=== PATIENT | female | born 2000 | race Caucasian/White ===

== ENCOUNTER 2020-04-21 15:26 | Outpatient (REF) | payer SELFPAY | END 2020-04-21 15:27 | disposition home or self-care (01) | LOC: HO.LAB 15:26 | PROVIDERS: Visit Provider Internal Medicine | DX: Z20.828 Contact with and (suspected) exposure to other viral communicable diseases (principal) | CPT/HCPCS: C9803; U0003 ==

== ENCOUNTER 2021-05-17 12:03 | Emergency (ER) | payer OTHER, SELFPAY ==
--- NOTE | ~2021-05-17 | XR_ITS ---
EXAMINATION: XR CHEST CLINICAL INFORMATION: Chest wall pain COMPARISON: None TECHNIQUE: 2 views of the chest were obtained. FINDINGS: No significant abnormality is noted involving the heart, lungs, mediastinum, bony thorax or soft tissues. XR/XR chest 2V IMPRESSION: Unremarkable examination.
[2021-05-17 12:47] VITALS: BP 123/56; PULSE 69; RESP 19; TEMP 36.6; O2SAT 100; BMI 25.6
--- NOTE | 2021-05-17 12:52 | ECG_ITS ---
Test Reason : chest pain Blood Pressure : / mmHG Vent. Rate : 063 BPM Atrial Rate : 063 BPM P-R Int : 118 ms QRS Dur : 078 ms QT Int : 392 ms P-R-T Axes : 031 020 041 degrees QTc Int : 401 ms Normal sinus rhythm Normal ECG No previous ECGs available Referred By: Generic ED Physician Electronically Signed By:Jonny Gallagher
[2021-05-17 13:53] LABS: UPreg QC Valid YES; Urine Pregnancy NEGATIVE (NEGATIVE)
[2021-05-17 14:03] LABS: COVID-19 Test Negative (Negative); IDNOW Serial# 9DD0AD1C
--- NOTE | 2021-05-17 15:13 | ED.GENADULT ---
HPI - General Adult General Chief complaint: General Medical Stated complaint: DULL PAIN IN LT CHEST Time Seen by Provider: 05/17/21 15:10 Source: patient Mode of arrival: ambulatory Limitations: no limitations History of Present Illness HPI narrative: 21 years old female came in for evaluation of chest pain. Chest pain started since 06:00 after she woke up from sleep, describes the pain as sharp, localized in the mid chest, with no radiation, pain is worsening with certain movement when she put her arms up and taking a deep breath, no relieving factors, no recent travel, no recent prolonged immobilization, no lower extremity swelling or tenderness. Patient also declined any history of chest pain. Related Data Allergies Allergy/AdvReac Type Severity Reaction Status Date / Time No Known Allergies Allergy Verified 05/17/21 15:10 Review of Systems Review of Systems: All other systems are reviewed and are negative Constitutional: Reports as per HPI and Reports no additional constitutional complaints Eyes: Reports as per HPI and Reports no additional eye complaints Reports system reviewed and no additional complaints, except as documented Cardiovascular: Reports as per HPI and Reports no additional cardiovascular complaints Respiratory: Reports as per HPI and Reports no additional respiratory complaints Gastrointestinal: Reports as per HPI and Reports no additional gastrointestinal complaints Genitourinary: Reports no additional female genitourinary complaints Musculoskeletal: Reports no additional musculoskeletal complaints Skin/Breast: Reports system reviewed and no additional complaints, except as docu Psychiatric: Reports no additional psychiatric complaints Endocrine: Reports no additional endocrine complaints Hematologic/Lymphatic: Reports no additional hematologic/lymphatic complaints Allergic/Immunologic: Reports no additional allergic/immunologic complaints Reports system reviewed and no additional complaints, except as documented and Reports Abnormal speech present [facility] Social History Social History Advance Directives: No Advance Directives Information Provided: No Patient : No Physical Exam Vital Signs: Vital Signs: Last Vital Signs Temp 98 F 05/17/21 12:47 Pulse 69 05/17/21 12:47 Resp 19 05/17/21 12:47 BP 123/56 L 05/17/21 12:47 Pulse Ox 100 05/17/21 12:47 BMI result Body Mass Index 25.6 Vital signs have been reviewed as appeared to be correct. Blood pressure normal. Heart rate normal. Respiration rate normal. Temperature normal. Oxygen saturation normal. Appearance: Alert. Oriented X3. No acute distress. Head: Normal external exam. Normocephalic. Atraumatic. No Fernandes signs noted. No raccoon eyes noted Eyes: PERRLA. EOMI. Conjunctiva and sclera normal. Eyelids normal. ENT: TM's Normal. Pharynx normal. Uvula midline. Moist mucous membranes. No trismus noted. No drooling noted. No muffled voice noted. Neck: Normal inspection. Neck supple. FROM. No adenopathy. Thyroid Normal. No meningeal signs. No neck mass noted. CVS: Normal heart rate and rhythm. Heart sound normal. No murmurs noted. Pulses normal throughout. Respiratory: No respiratory distress. Painless inspiration. Breath sounds normal. No wheezes/rales/rhonchi noted. Chest point of tenderness in the mid chest. No accessory muscle usage noted or decreased air movement noted. Abdomen: Soft and nontender. Bowel sounds normal in all 4 quadrants. No distention noted. No organomegaly noted. No visible injury noted. Back: No CVA tenderness. Full range of motion noted. Skin: Skin warm and dry. Normal skin color. Normal skin turgor. No rashes/lesions/lacerations noted. Extremities: No lower extremity edema. Extremities exhibit normal range of motion. Extremities nontender. Neuro: Oriented X 3. Cranial nerve exam: II-XII are grossly intact No motor deficit. No sensory deficit. Reflexes normal. Course Course Course Narrative: [age] came in for evaluation of chest pain started this morning. Patient at low risk for coronary artery disease HEART score is 0, patient at low risk for PE/DVT, with negative D-dimer, physical exam lab finding are more or less consistent was musculoskeletal pain. Medical Decision Making Medical Records Medical records reviewed: Yes I reviewed the patient's medical records. Lab Data Lab results reviewed: Yes I reviewed the patient's lab results. Result diagrams: 05/17/21 15:45 05/17/21 15:45 Labs: Lab Results 05/17/21 05/17/21 05/17/21 Range/Units 13:42 13:43 15:45 WBC 8.0 (4.8-10.8) X10*3/uL RBC 4.39 (4.20-5.50) X10*6/uL Hgb 12.6 (12.0-16.0) g/dl Hct 39.0 (37.0-47.0) % MCV 88.8 (80.0-98.0) fL MCH 28.7 (27.0-33.0) pg MCHC 32.3 (31.0-35.0) g/dl RDW 13.0 (11.0-16.0) % Plt Count 303 (160-400) X10*3/uL MPV 9.2 L (9.4-12.3) fL Immature Gran % (Auto) 0.1 (0.0-0.4) % Neut % (Auto) 56.9 (45-73) % Lymph % (Auto) 33.2 (20-40) % [place] % (Auto) 6.5 (2-11) % Eos % (Auto) 2.4 (0-4) % Baso % (Auto) 0.9 (0-2) % Lymph # (Auto) 2.7 (1.2-4.9) X10*3/uL [place] # (Auto) 0.5 (0.1-1.2) X10*3/uL Eos # (Auto) 0.2 (0.0-0.4) X10*3/uL Baso # (Auto) 0.1 (0.0-0.2) X10*3/uL Abs Immat Gran (auto) 0.01 (0.00-0.03) X10*3/uL Absolute Neuts (auto) 4.6 (2.0-8.3) x10*3/uL Absolute Nucleated RBC 0.000 (0.0-0.012) X10*3/uL Nucleated RBC % (auto) 0.0 (0.0-0.2) /100WBC D-Dimer High Sensitivty NG/ML Sodium (135-145) mmol/L Potassium (3.3-5.1) mmol/L Chloride (96-108) mmol/L Carbon Dioxide (22-29) mmol/L Anion Gap (12-20) BUN (9-16) mg/dL Creatinine (0.5-1.4) mg/dL Estim Creat Clear Calc Estimated GFR Random Glucose (60-115) mg/dL Calcium (8.4-10.2) mg/dL Total Bilirubin (0.0-1.0) mg/dL Direct Bilirubin (0.0-0.5) mg/dL AST (5-31) U/L ALT (0-31) U/L Alkaline Phosphatase (39-117) U/L Troponin I High Sens (<3.5-17.0) ng/L Total Protein (6.5-8.0) g/dL Albumin (3.5-5.0) g/dL Lipase (8-78) U/L Urine Test NEGATIVE (NEGATIVE) COVID-19 (TIFFANI) Negative (Negative) COVID-19 Clin Com See Note 05/17/21 05/17/21 05/17/21 Range/Units 15:45 15:45 15:45 WBC (4.8-10.8) X10*3/uL RBC (4.20-5.50) X10*6/uL Hgb (12.0-16.0) g/dl Hct (37.0-47.0) % MCV (80.0-98.0) fL MCH (27.0-33.0) pg MCHC (31.0-35.0) g/dl RDW (11.0-16.0) % Plt Count (160-400) X10*3/uL MPV (9.4-12.3) fL Immature Gran % (Auto) (0.0-0.4) % Neut % (Auto) (45-73) % Lymph % (Auto) (20-40) % Col[place] % (Auto) (2-11) % Eos % (Auto) (0-4) % Baso % (Auto) (0-2) % Lymph # (Auto) (1.2-4.9) X10*3/uL [place] # (Auto) (0.1-1.2) X10*3/uL Eos # (Auto) (0.0-0.4) X10*3/uL Baso # (Auto) (0.0-0.2) X10*3/uL Abs Immat Gran (auto) (0.00-0.03) X10*3/uL Absolute Neuts (auto) (2.0-8.3) x10*3/uL Absolute Nucleated RBC (0.0-0.012) X10*3/uL Nucleated RBC % (auto) (0.0-0.2) /100WBC D-Dimer High Sensitivty < 150 NG/ML Sodium 140 (135-145) mmol/L Potassium 4.3 (3.3-5.1) mmol/L Chloride 109 H (96-108) mmol/L Carbon Dioxide 27 (22-29) mmol/L Anion Gap 8 L (12-20) BUN 10 (9-16) mg/dL Creatinine 0.84 (0.5-1.4) mg/dL Estim Creat Clear Calc 91.1 Estimated GFR > 60 Random Glucose 95 (60-115) mg/dL Calcium 8.9 (8.4-10.2) mg/dL Total Bilirubin 0.4 (0.0-1.0) mg/dL Direct Bilirubin < 0.2 (0.0-0.5) mg/dL AST 19 (5-31) U/L ALT 13 (0-31) U/L Alkaline Phosphatase 70 (39-117) U/L Troponin I High Sens < 3.5 (<3.5-17.0) ng/L Total Protein 7.2 (6.5-8.0) g/dL Albumin 3.8 (3.5-5.0) g/dL Lipase 25 (8-78) U/L Urine Test (NEGATIVE) COVID-19 (TIFFANI) (Negative) COVID-19 Clin Com Imaging Data Chest x-ray: Attestation: I personally reviewed and interpreted this imaging study as follows: Radiologist's impression: Unremarkable chest x-ray ECG Data Attestation: I personally reviewed and interpreted this ECG as follows: Interpretation: Normal sinus rhythm at 63 beats per minute, normal axis deviation, normal intervals, no ST-T changes. Discharge Plan Discharge Clinical Impression: Musculoskeletal chest pain Patient Disposition: Home, Self-Care Instructions: Chest Wall Pain (ED) Referrals: [facility] [Primary Care Provider] - 2 days
[2021-05-17] MEDS: Acetaminophen 325 MG TABLET 650 MG PO (15:23)
[2021-05-17] MEDS: Famotidine 20 MG TABLET PO (15:23)
[2021-05-17] MEDS: Magnesium Hydrox/Alum Hydrox 30 ML ORAL.SUSP PO (15:24)
[2021-05-17 15:50] LABS: MANUAL DIFF FLAG NO
[2021-05-17 15:51] LABS: Basophils Absolute Auto 0.1 X10*3/uL (0.0-0.2); Basophils Percent Auto 0.9 % (0-2); Eosinophils Absolute Auto 0.2 X10*3/uL (0.0-0.4); Eosinophils Percent Auto 2.4 % (0-4); Hemoglobin 12.6 g/dl (12.0-16.0); Imm Gran Abs Auto 0.01 X10*3/uL (0.00-0.03); Imm Gran Pct Auto 0.1 % (0.0-0.4); Lymphocytes Absolute Auto 2.7 X10*3/uL (1.2-4.9); Lymphocytes Percent Auto 33.2 % (20-40); Mean Corpuscular HGB Conc 32.3 g/dl (31.0-35.0); Mean Corpuscular Hemoglobin 28.7 pg (27.0-33.0); Mean Corpuscular Volume 88.8 fL (80.0-98.0); Mean Platelet Volume 9.2 fL (9.4-12.3); Monocytes Absolute Auto 0.5 X10*3/uL (0.1-1.2); Monocytes Percent Auto 6.5 % (2-11); Neutrophils Absolute Auto 4.6 x10*3/uL (2.0-8.3); Neutrophils Percent Auto 56.9 % (45-73); Platelet Count 303 X10*3/uL (160-400); Red Blood Count 4.39 X10*6/uL (4.20-5.50)
[2021-05-17 16:05] LABS: D Dimer High Sensitivity < 150 NG/ML
[2021-05-17 16:11] LABS: Troponin-I High Sensitivity < 3.5 ng/L (<3.5-17.0)
[2021-05-17 16:14] LABS: Alanine Aminotransferase 13 U/L (0-31); Albumin Level 3.8 g/dL (3.5-5.0); Alkaline Phosphatase 70 U/L (39-117); Anion Gap 8 (12-20); Aspartate Amino Transferase 19 U/L (5-31); Bilirubin Direct < 0.2 mg/dL (0.0-0.5); Bilirubin Total 0.4 mg/dL (0.0-1.0); Blood Urea Nitrogen 10 mg/dL (9-16); Calcium 8.9 mg/dL (8.4-10.2); Carbon Dioxide 27 mmol/L (22-29); Chloride 109 mmol/L (96-108); Creatinine Clr Calc Pharmacy 91.1; Estimated Glomerular Filt Rate > 60; Glucose Random 95 mg/dL (60-115); Lipase 25 U/L (8-78); Potassium 4.3 mmol/L (3.3-5.1); Sodium 140 mmol/L (135-145); Total Protein 7.2 g/dL (6.5-8.0)
== END 2021-05-17 16:30 | disposition home or self-care (01) ==
PROVIDERS: Emergency Provider Emergency Medicine
DX: R07.89 Other chest pain (principal); Z20.822 Contact with and (suspected) exposure to COVID-19
CPT/HCPCS: 36415; 71046; 80048; 80076; 81025; 83690; 84484; 85025; 85379; 87635; 93005; 99283; 99284

== ENCOUNTER 2022-04-07 11:09 | Emergency (ER) | payer SELFPAY ==
--- NOTE | ~2022-04-07 | XR_ITS ---
EXAMINATION: XR RIBS, RIGHT, PA CHEST CLINICAL INFORMATION: Right rib pain. COMPARISON: 05/17/2021 chest radiographs. TECHNIQUE: 3 views of the right ribs were obtained along with a PA view of the chest. A skin marker was placed over the inferior right ribs. FINDINGS: Lungs are clear. No consolidation, pneumothorax, or pleural effusion. The cardiomediastinal silhouette and pulmonary vasculature are normal. Osseous structures are unremarkable. Ribs are intact. No fractures are identified. XR/XR ribs RT min 3V w CXR1V IMPRESSION: Unremarkable examination.
--- NOTE | 2022-04-07 11:11 | ED.CHESTPAIN ---
HPI - Chest Pain General Chief Complaint: General Medical Stated Complaint: R Side Pain No Injury Time Seen by Provider: 04/07/22 11:50 Source: patient Mode of arrival: ambulatory History of Present Illness HPI narrative: 22-year-old female with past medical history of influenza last week presenting to the ED complaining of right lower rib pain x 1 week s/p heavy lifting at work. Reports pain worse with movement, palpation, and deep breathing. Has been using NSAIDs and Lidoderm patches without relief. Reports mild SOB secondary to pain. Denies known injury, direct trauma/fall. Denies fever, chills, vomiting, nausea, vomiting, diarrhea, pedal edema/calf pain, oral OCPs, recent travel complaint: chest pain Onset (ago): week(s) Related Data Previous Rx's Medication Instructions Recorded acetaminophen 500 mg tablet 500 mg PO Q6H PRN fever or pain 04/07/22 (Tylenol Extra Strength) #14 tabs cyclobenzaprine 5 mg tablet 5 mg PO Q8H PRN pain (scale score 04/07/22 7-10) 5 days #14 tabs lidocaine 5 % topical patch 1 patch topical DAILY PRN pain #30 04/07/22 (Lidoderm) ea naproxen 500 mg tablet 500 mg PO BID PRN pain 10 days #20 04/07/22 tabs Allergies Allergy/AdvReac Type Severity Reaction Status Date / Time seafood Allergy Hives Verified 04/07/22 11:14 Review of Systems Review of Systems: Constitutional: No Fever, No Chills ENT/Mouth: No Ear Pain, No Nasal Congestion, No sore throat, No Rhinorrhea, No Swallowing Difficulty Cardiovascular: + Chest Wall Pain, + SOB Respiratory: No Cough, No Sputum, No Wheezing Gastrointestinal: No Nausea, No Vomiting, No Diarrhea, No Constipation, No Abdominal pain Genitourinary: No Dysuria, No Urinary Frequency, No Hematuria, No Flank Pain Musculoskeletal: No joint pain, No Myalgias, No Joint Swelling Skin: No Skin Lesions, No rash Neuro: No Weakness, No Numbness, No Paresthesias Yes all other systems are reviewed and are negative Constitutional: Constitutional: Reports as per [facility] Past Medical History Attestation statement: The following information was validated with the patient. Social History Social History Advance Directives: No Advance Directives Information Provided: No Physical Exam Vital Signs: Vital Signs: Last Vital Signs Temp 97.5 F 04/07/22 11:12 Pulse 88 04/07/22 11:12 Resp 16 04/07/22 11:12 BP 112/68 04/07/22 11:12 Pulse Ox 99 04/07/22 11:12 O2 Del Method 04/07/22 11:12 BMI result Body Mass Index 26.5 Const: General: cooperative, healthy appearing and no acute distress Orientation/consciousness: patient oriented x3 Limitations: no limitations HEENT: Head: Yes normal to inspection and Yes atraumatic Ears: hearing grossly normal bilaterally General nose exam: Normal external nose present Face and sinus: Yes normal facial exam Eyes: General: appearance normal, both eyes and all related structures EOM: EOMs intact bilaterally Neck: Neck: Yes normal visual inspection and Yes no meningeal signs Chest: Chest palpation & inspection: normal inspection of the chest, no crepitus and tenderness (Right anterior lower ribs) Resp: Effort & Inspection: normal respiratory effort and no respiratory distress Auscultation: clear to auscultation bilaterally, no crackles, no rales, no rhonchi and no wheezes Cardio: Rate: regular rate Heart sounds: S1 normal heart sound present and S2 normal heart sound present GI: Inspection: Yes normal to inspection Palpation (GI): Soft to palpation, nontender, no guarding and not rigid : General: Yes no CVA tenderness Back/Spine/Pelvis: Other: No midline thoracic/lumbar spinous tenderness/step-off or deformity Back: no CVA tenderness Skin: Rashes: no rashes Wounds: no wounds Neuro: General: patient oriented x3, tone normal and no meningeal signs Gait exam (Neuro): Normal gait present Extrem: General: Yes normal to inspection, Yes no pedal edema and Yes no calf tenderness Course Course Course Narrative: RME--22yo F with no sig PMHx presenting c/o R rib pain x 1 week s/p heavy lifting at work. Admits pain worse with movement and breathing. Admits to mild SOB. Has been taking NSAIDs and patches w/o relief Denies pedal edema, calf pain, travel, oral OCPs, abdominal pain, nausea, vomiting, diarrhea. PERC negative Pain very reproducible to right lower ribs. Abdomen soft and nontender. No pedal edema/calf tenderness EKG, rib series, and IM toradol ordered in triage 1224--XR ribs RT min 3V w CXR1V IMPRESSION: Unremarkable examination. -1345--labs unremarkable. Troponin negative. D-dimer WNL. Results discussed with patient including worrisome signs and symptoms and strict return precautions, and when to return to the emergency department. They verbalized understanding and feel safe for discharge at this time. Medications Administered Discontinued Medications Generic Name Dose Route Start Last Admin Trade Name Claire PRN Reason Stop Dose Admin Ketorolac Tromethamine 30 mg 04/07/22 11:16 04/07/22 13:17 Ketorolac Tromethamine 30 Mg/Ml Vial IM 04/07/22 11:17 30 mg ONCE ONE Administration Medical Decision Making Medical Decision Making [facility] Narrative: 22-year-old female with past medical history of influenza last week presenting to the ED complaining of right lower rib pain x 1 week s/p heavy lifting at work. On exam vital signs stable, NAD, nontoxic appearing, pain reproducible on palpation, patient guarding with movements, lungs CTA, abdomen soft/nontender, no pedal edema/calf tenderness. Concern for rib fracture vs contusion vs ?PNA. PERC negative however still concern for potential PE. Unlikely ACS Plan: EKG, rib x-ray, labs, IM Toradol Differential Diagnoses: Differential diagnosis (As above) Lab Attestation: I reviewed the patient's lab results. Independent interpretation of EKG, rhythm strip, radiology study: Independent interp EKG,rhythm strip, radiology study I performed an independent interpretation of the: EKG and Plain X-Ray My interpretation is EKG normal sinus rhythm with sinus arrhythmia at a rate of 78. QTC 401. No STEMI/nonischemic XR unremarkable Discharge Plan Discharge Clinical Impression: Acute costochondritis Patient Disposition: Home, Self-Care Instructions: Costochondritis (ED) Additional Instructions: Your x-ray was unremarkable. Her labs are otherwise reassuring. Your pain is likely musculoskeletal Flexeril is a muscle relaxer, take at night as it makes you drowsy, do not drive, drink alcohol, or operate machinery while taking it Naproxen as an anti-inflammatory / pain medication, take with food Lidoderm patches are numbing patches, apply to painful area In addition take Tylenol at home If symptoms persist or worsen, pain becomes unbearable, you developed urinary retention or incontinence, or weakness return to the ED Prescriptions: New acetaminophen [Tylenol Extra Strength] 500 mg tablet 500 mg PO Q6H PRN (Reason: fever or pain) Qty: 14 0RF lidocaine [Lidoderm] 5 % adhesive patch,medicated 1 patch topical DAILY MDD remove after 12 hours PRN (Reason: pain) Qty: 30 0RF Rx Instructions: leave on most painful area for up to 12 hrs naproxen 500 mg tablet 500 mg PO BID PRN (Reason: pain) 10 Days Qty: 20 0RF cyclobenzaprine 5 mg tablet 5 mg PO Q8H PRN (Reason: pain (scale score 7-10)) 5 Days Qty: 14 0RF Referrals: Physician,None [Primary Care Provider] - 5 days Stand Alone Forms: Work/School Release Interventions: ED Discharge Assessment Last Done: 04/07/22 14:17 Discharge Date/Time: 04/07/22 14:18
[2022-04-07 11:12] VITALS: BP 112/68; PULSE 88; RESP 16; TEMP 36.4; O2SAT 99; BMI 26.5
--- NOTE | 2022-04-07 11:15 | ECG_ITS ---
Test Reason : CP Blood Pressure : / mmHG Vent. Rate : 078 BPM Atrial Rate : 078 BPM P-R Int : 126 ms QRS Dur : 076 ms QT Int : 352 ms P-R-T Axes : 053 004 040 degrees QTc Int : 401 ms Normal sinus rhythm with sinus arrhythmia Normal ECG When compared with ECG of 17-MAY-2021 13:33, No significant change was found Referred By: Hazel Pena Electronically Signed By:TAMMY EDWARDS MD
[2022-04-07 13:04] LABS: MANUAL DIFF FLAG NO
[2022-04-07 13:07] LABS: Basophils Absolute Auto 0.1 X10*3/uL (0.0-0.2); Eosinophils Absolute Auto 0.1 X10*3/uL (0.0-0.4); Eosinophils Percent Auto 1.3 % (0-4); Hematocrit 40.5 % (37.0-47.0); Hemoglobin 13.2 g/dl (12.0-16.0); Imm Gran Abs Auto 0.02 X10*3/uL (0.00-0.03); Imm Gran Pct Auto 0.2 % (0.0-0.4); Lymphocytes Percent Auto 24.9 % (20-40); Mean Corpuscular HGB Conc 32.6 g/dl (31.0-35.0); Mean Corpuscular Hemoglobin 28.3 pg (27.0-33.0); Mean Corpuscular Volume 86.7 fL (80.0-98.0); Mean Platelet Volume 9.1 fL (9.4-12.3); Monocytes Absolute Auto 0.6 X10*3/uL (0.1-1.2); Monocytes Percent Auto 6.7 % (2-11); Neutrophils Absolute Auto 5.4 x10*3/uL (2.0-8.3); Neutrophils Percent Auto 65.9 % (45-73); Platelet Count 295 X10*3/uL (160-400); Red Blood Count 4.67 X10*6/uL (4.20-5.50); Red Cell Distribution Width 13.4 % (11.0-16.0); White Blood Count 8.2 X10*3/uL (4.8-10.8)
[2022-04-07] MEDS: Ketorolac Tromethamine 30 MG/ML VIAL IM (13:17)
--- NOTE | 2022-04-07 13:20 | PC.NURSE ---
medicated per provider order.
[2022-04-07 13:22] LABS: Alanine Aminotransferase 13 U/L (0-31); Albumin Level 4.1 g/dL (3.5-5.0); Alkaline Phosphatase 72 U/L (39-117); Anion Gap 10 (12-20); Aspartate Amino Transferase 19 U/L (5-31); Bilirubin Direct 0.2 mg/dL (0.0-0.5); Bilirubin Total 0.5 mg/dL (0.0-1.0); Blood Urea Nitrogen 13 mg/dL (9-16); Calcium 9.5 mg/dL (8.4-10.2); Carbon Dioxide 26 mmol/L (22-29); Chloride 105 mmol/L (96-108); Creatinine Clr Calc Pharmacy 94.1; Estimated Glomerular Filt Rate > 60; Glucose Random 81 mg/dL (60-115); Potassium 4.5 mmol/L (3.3-5.1); Sodium 136 mmol/L (135-145); Total Protein 7.4 g/dL (6.5-8.0)
[2022-04-07 13:23] LABS: D Dimer High Sensitivity < 150 NG/ML
[2022-04-07 13:26] LABS: Troponin-I High Sensitivity < 3.5 ng/L (<3.5-17.0)
== END 2022-04-07 14:18 | disposition home or self-care (01) ==
PROVIDERS: Physician Assistant; Emergency Provider Emergency Medicine Emergency Medical Services
DX: M94.0 Chondrocostal junction syndrome [Tietze] (principal); R07.89 Other chest pain; R06.02 Shortness of breath; Z79.899 Other long term (current) drug therapy
CPT/HCPCS: 36415; 71101; 80048; 80076; 84484; 85025; 85379; 93005; 96372; 99283; 99284; J1885

== ENCOUNTER 2022-11-23 15:22 | Outpatient (REF) | payer OTHER, SELFPAY ==
[2022-11-23 17:37] LABS: HCG Quantitative 751 mIU/mL
== END 2022-11-23 15:23 | disposition home or self-care (01) ==
LOC: HO.HHCL 15:22
PROVIDERS: Visit Provider Nurse Practitioner Primary Care
DX: Z32.01 Encounter for pregnancy test, result positive (principal)
CPT/HCPCS: 36415; 84702

== ENCOUNTER 2022-11-29 13:13 | Outpatient (REF) | payer SELFPAY | END 2022-11-29 13:14 | disposition home or self-care (01) | LOC: HO.LNP 13:13 | PROVIDERS: Visit Provider Obstetrics & Gynecology | DX: Z13.89 Encounter for screening for other disorder (principal) ==

== ENCOUNTER 2022-11-29 14:13 | Outpatient (REF) | payer OTHER, SELFPAY ==
--- NOTE | ~2022-11-29 | US_ITS ---
EXAMINATION: US OBSTETRICAL ULTRASOUND CLINICAL INFORMATION: Encounter of normal . COMPARISON: None available. LMP: 10/21/2022. Gestational age by maternal dates is 5 weeks and 4 days. Estimated date of delivery by maternal dates is 07/28/2023. TECHNIQUE: Routine transabdominal imaging of pelvis is performed. FINDINGS: There is intrauterine gestational sac and yolk sac visualized. No pole or heart rate is seen.. MATERNAL ADNEXA: The right maternal ovary measures 2.6 x 1.4 x 1.6 cm. It appears unremarkable. The left maternal ovary measures 2.8 x 2.5 x 2.3 cm. There is small corpus luteal cyst measuring 1.5 x 2.0 x 1.8 cm. There is no significant maternal adnexal mass. No maternal pelvic ascites. US/US OB pelvic and transvaginal IMPRESSION: Intrauterine gestational sac with visualization of yolk sac but no pole seen. Corpus luteal cyst left ovary. The right ovary is unremarkable. There is no free fluid.
[2022-11-29 16:14] LABS: HCG Quantitative 2048 mIU/mL
== END 2022-11-29 14:14 | disposition home or self-care (01) ==
LOC: HO.US 14:13
PROVIDERS: PCP Registered Nurse; Visit Provider Obstetrics & Gynecology
DX: Z34.91 Encounter for supervision of normal pregnancy, unspecified, first trimester (principal); Z3A.01 Less than 8 weeks gestation of pregnancy
CPT/HCPCS: 36415; 76801; 76817; 84702

== ENCOUNTER 2022-11-30 13:12 | Outpatient (AMB) | payer OTHER, SELFPAY ==
--- NOTE | 2022-11-30 13:13 | MHC.OFFVIS ---
Intake Vital Signs 11/30/22 13:15 Height 5 ft 2 in Weight 163 lb BMI 29.8 BP 112/62 Intake Visit Reasons: early Vp Compliance Required: No Information Interpreted: non-clinical & clinical Accompanied by: Self / Same As Patient Allergies seafood Allergy (Verified 11/30/22 13:17) Hives Is last menstrual period known: Yes Last menstrual period: 10/23/22 HPI HPI Comments History of Present Illness Details Presenting referred from [facility] was a positive test. LMP on 10/22/2019 making her by today at 5 weeks and 4 days of gestation HCG on 11/23 was 751, on 11/29 was 2047. Ultrasound done on 11/29/2022 showed the following: There is intrauterine gestational sac and yolk sac visualized. No pole or heart rate is seen.. ? MATERNAL ADNEXA: ? ? The right maternal ovary measures 2.6 x 1.4 x 1.6 cm.? It appears unremarkable. The left maternal ovary measures 2.8 x 2.5 x 2.3 cm.? There is small corpus luteal cyst measuring 1.5 x 2.0 x 1.8 cm. There is no significant maternal adnexal mass.? No maternal pelvic ascites. [facility] Female Reproductive History Menstrual Date of last menstrual period: 10/23/22 Review of Systems Const All systems reviewed & are unremarkable except as noted in HPI and below Reports as per HPI and Reports no additional complaints GI Reports no additional complaints Reports no additional complaints Physical Exam Vital Signs: Last Vital Signs BP 112/62 11/30/22 13:15 BMI result Body Mass Index 29.8 Assessment & Plan Assessment & Plan (1) Early stage of : Code(s): Z34.90 - Encounter for supervision of normal , unspecified, unspecified trimester Plan: GC/CT collected. Discussed with the patient the results the ultrasound showing intrauterine gestational sac with a yolk sac, no pole yet. SAB/ectopic warnings given the patient, she is to go to the emergency room or call in case of abdominal pain/cramping, vaginal bleeding or nausea and/ vomiting. Follow-up ultrasound in 2 weeks for viability. vitamin 1 tablet p.o. q.d. vitamin B6 25 mg p.o. q.6 p.r.n. nausea and vomiting Orders: Orders HCG Quantitative 11/29/22 Z34.90 - Encounter for supervision of normal , unspecified, unspecified trimester US OB <= 14 weeks fetus 2 Weeks Z34.90 - Encounter for supervision of normal , unspecified, unspecified trimester CT NG by PCR Today Z11.3 - Encounter for screening for infections with a predominantly sexual mode of transmission Medications: Discontinued naproxen Discontinued Reason: Doctor's Order 500 mg PO BID 10 days PRN 20 tabs 0RF pain Coding Level of Care Code New Pt Level 3 (49161) Diagnoses Early stage of Z34.90
[2022-11-30 13:15] VITALS: BP 112/62; BMI 29.8
== END 2022-11-30 13:50 | disposition home or self-care (01) ==
LOC: HO.HWS 13:13
PROVIDERS: PCP Registered Nurse; Visit Provider Obstetrics & Gynecology
DX: Z34.90 Encounter for supervision of normal pregnancy, unspecified, unspecified trimester (principal)
CPT/HCPCS: 99203

== ENCOUNTER 2022-11-30 13:12 | Outpatient (REF) | payer OTHER, SELFPAY ==
[2022-12-01 05:21] LABS: CT PCR NOT DETECTED (Not Detect.); NG PCR NOT DETECTED (Not Detect.)
== END 2022-11-30 13:13 | disposition home or self-care (01) ==
LOC: HO.LNP 13:12
PROVIDERS: PCP Registered Nurse; Visit Provider Obstetrics & Gynecology
DX: Z34.90 Encounter for supervision of normal pregnancy, unspecified, unspecified trimester (principal)
CPT/HCPCS: 0353U; 99202

== ENCOUNTER 2022-12-14 11:26 | Outpatient (REF) | payer OTHER, SELFPAY ==
--- NOTE | ~2022-12-14 | US_ITS ---
EXAMINATION: US OBSTETRICAL ULTRASOUND CLINICAL INFORMATION: Early , assess viability. COMPARISON: None available. LMP: 10/21/2022. Gestational age by maternal dates is 7 weeks, 5 days. Estimated date of delivery by maternal dates is 07/28/2023. TECHNIQUE: Multiple 2-D grayscale and Doppler transabdominal/transvaginal ultrasound images of the pelvis were obtained. FINDINGS: There is a single intrauterine gestational sac with visible yolk sac, embryo/fetus, and cardiac activity. The yolk sac measures 0.3 cm. There is no significant subchorionic hemorrhage or hematoma. HR: Not detected. CRL ([place] rump length): 0.17 cm KITTY (estimated date of delivery): Could not be calculated. MATERNAL ADNEXA: The right maternal ovary measures 2.8 x 1.5 x 2.7 cm. The left maternal ovary measures 3.8 x 2.1 x 3.4 cm. A cyst measures 2.1 x 1.5 x 1.4 cm. There is no significant maternal adnexal mass. No maternal pelvic ascites. US/US OB pelvic and transvaginal IMPRESSION: 1. Single intrauterine gestation with embryonic pole and yolk sac, but no heart rate is detected at this time. Continued monitoring of beta-hCG levels is recommended. Short-term transvaginal pelvic ultrasound follow-up in one week is recommended to assess for viability.
[2022-12-14 13:30] LABS: HCG Quantitative 7236 mIU/mL
== END 2022-12-14 11:27 | disposition home or self-care (01) ==
LOC: HO.US 11:26
PROVIDERS: PCP Registered Nurse; Visit Provider Obstetrics & Gynecology
DX: Z34.91 Encounter for supervision of normal pregnancy, unspecified, first trimester (principal); Z3A.01 Less than 8 weeks gestation of pregnancy
CPT/HCPCS: 36415; 76801; 76817; 84702; 86850; 86900; 99212

== ENCOUNTER 2022-12-14 11:57 | Outpatient (AMB) | payer OTHER, SELFPAY ==
[2022-12-14 14:19] VITALS: BP 110/64; BMI 29.8
--- NOTE | 2022-12-14 14:19 | MHC.OFFVIS ---
Intake Vital Signs 12/14/22 14:19 Height 5 ft 2 in Weight 163 lb BMI 29.8 BP 110/64 Intake Visit Reasons: US follow up [employer] Required: No Allergies seafood Allergy (Verified 12/14/22 14:19) Hives Post menopausal: No Patient : Yes HPI HPI Comments History of Present Illness Details Presenting for follow-up at 7 weeks and 5 days of gestation by date . ultrasound showed single intrauterine gestation with an embryonic pole annual sac but no heart rate detected CRL it is 1.7 mm . The patient had an episode of spotting few days ago, she went to [facility] had blood drawn was Rh positive, ultrasound was reassuring according to patient, report is not available . hCG done today =[id number]. On vitamin 1 tablet p.o. q.d. PFSH Female Reproductive History Menstrual control method: none Physical Exam Vital Signs: Last Vital Signs BP 110/64 12/14/22 14:19 BMI result Body Mass Index 29.8 Assessment & Plan Assessment & Plan (1) Early stage of : Code(s): Z34.90 - Encounter for supervision of normal , unspecified, unspecified trimester Plan: Discussed with the patient the results of ultrasound, positive yolk sac and pole but no heart rate aysha CRL measuring 1.7 mm is below the 25 mm cuttoff for the radiological diagnosis of missed A/B, therefore the patient does not fit criteria for missed AUB. Recommended repeat ultrasound in 2 weeks. SAB warnings given the patient she is to call or go to emergency room in case of spotting in or cramping. It vitamin tablet p.o. q.d.. Instructions given the patient to schedule a 2 week ultrasound follow-up appointment Orders: Orders US OB <= 14 weeks fetus Today Z34.90 - Encounter for supervision of normal , unspecified, unspecified trimester US OB <= 14 wk fetus add gest 2 Weeks Z34.90 - Encounter for supervision of normal , unspecified, unspecified trimester Coding Level of Care Code Est Pt Level 3 (77190) Diagnoses Early stage of Z34.90
== END 2022-12-14 14:27 | disposition home or self-care (01) ==
LOC: HO.HWS 11:57
PROVIDERS: PCP Registered Nurse; Visit Provider Obstetrics & Gynecology
DX: Z34.90 Encounter for supervision of normal pregnancy, unspecified, unspecified trimester (principal)
CPT/HCPCS: 99213

== ENCOUNTER 2022-12-22 12:57 | Emergency (ER) | payer OTHER, SELFPAY ==
--- NOTE | ~2022-12-22 | US_ITS ---
EXAMINATION: US OBSTETRICAL ULTRASOUND CLINICAL INFORMATION: 8 weeks . Bleeding. COMPARISON: Previous exams November 29 and 12/14/2022 LMP: 10/21/2022. Gestational age by maternal dates is 8 weeks 6 days. Estimated date of delivery by maternal dates is 07/28/2023. TECHNIQUE: Transabdominal and transvaginal first trimester OB ultrasound. Transvaginal exam was performed for better visualization of the gestational sac. FINDINGS: Uterus measures 6.5 x 4.2 x 5.4 cm in dimension. There is an intrauterine gestational sac. There is a yolk sac. pole is seen. [place]-rump length measures 0.4 cm. This would suggest gestational age of 6 weeks 1 day with estimated date of delivery of 08/16/2023. This is behind date from LMP. No heart activity is seen. The right ovary is normal-appearing and measures 2.7 x 1.4 x 1.8 cm. Left ovary measures 2.5 x 2.5 x 2.2 cm. There is a 1.9 x 1.5 x 1.8 cm complex left ovarian cyst with low-level internal echoes suggestive of a corpus luteum. There is no fluid in the pelvis. US/US OB pelvic and transvaginal IMPRESSION: Intrauterine gestational sac, pole and yolk sac. [place]-rump length suggests gestational age 6 weeks 1 day with estimated date of delivery of 08/16/2023. This is behind date by LMP. No heart activity is seen. Appearance is concerning for embryonic demise.
[2022-12-22 13:29] VITALS: BP 132/68; PULSE 84; RESP 19; TEMP 36.6; O2SAT 98; BMI 30.2
[2022-12-22 13:53] LABS: MANUAL DIFF FLAG NO
[2022-12-22 13:56] LABS: Appearance Urine Clear; Color Urine Yellow; Glucose Urine UA Negative (Negative); Leukocyte Esterase Urine Negative (Negative); Nitrite Urine Negative (Negative); PH 6.5 (5.0-9.0); Specific Gravity - Urine <= 1.005 (1.005-1.025); UMIC TRIGGER UACC YES; Urine Blood Large (3+) (Negative); Urine Ketones Negative (Negative); Urine Protein Negative (Neg-Trace)
[2022-12-22 13:57] LABS: Basophils Absolute Auto 0.1 X10*3/uL (0.0-0.2); Basophils Percent Auto 0.9 % (0-2); Eosinophils Absolute Auto 0.2 X10*3/uL (0.0-0.4); Eosinophils Percent Auto 1.5 % (0-4); Hematocrit 42.4 % (37.0-47.0); Imm Gran Abs Auto 0.04 X10*3/uL (0.00-0.03); Imm Gran Pct Auto 0.4 % (0.0-0.4); Lymphocytes Absolute Auto 2.4 X10*3/uL (1.2-4.9); Lymphocytes Percent Auto 23.3 % (20-40); Mean Corpuscular Hemoglobin 29.3 pg (27.0-33.0); Mean Corpuscular Volume 88.7 fL (80.0-98.0); Mean Platelet Volume 9.5 fL (9.4-12.3); Monocytes Absolute Auto 0.8 X10*3/uL (0.1-1.2); Monocytes Percent Auto 7.4 % (2-11); Neutrophils Percent Auto 66.5 % (45-73); Platelet Count 293 X10*3/uL (160-400); Red Blood Count 4.78 X10*6/uL (4.20-5.50); White Blood Count 10.5 X10*3/uL (4.8-10.8)
[2022-12-22 14:07] LABS: Bacteria Urine None Seen (None Seen); Hyaline Casts Urine 0-2 /LPF (0-2); RBC Urine 0-2 /HPF (0-2); Squamous Epithelial Cell Urine 0-2 /HPF (0-2); WBC Urine 0-5 /HPF (0-5)
[2022-12-22 14:24] LABS: HCG Quantitative 5449 mIU/mL
[2022-12-22 14:27] LABS: Alanine Aminotransferase 29 U/L (0-31); Albumin Level 4.1 g/dL (3.5-5.0); Alkaline Phosphatase 75 U/L (39-117); Anion Gap 10 (12-20); Aspartate Amino Transferase 24 U/L (5-31); Bilirubin Direct 0.1 mg/dL (0.0-0.5); Bilirubin Total 0.4 mg/dL (0.0-1.0); Blood Urea Nitrogen 9 mg/dL (9-16); Calcium 9.4 mg/dL (8.4-10.2); Carbon Dioxide 27 mmol/L (22-29); Chloride 105 mmol/L (96-108); Creatinine Clr Calc Pharmacy 115.7; Estimated Glomerular Filt Rate > 60; Glucose Random 58 mg/dL (60-115); Magnesium 1.8 mg/dL (1.6-2.6); Potassium 3.8 mmol/L (3.3-5.1); Sodium 138 mmol/L (135-145)
--- NOTE | 2022-12-22 14:31 | ED_ITS ---
HPI - General Chief complaint: Vaginal Bleeding Stated complaint: Spotting 8 Wks Time Seen by Provider: 12/22/22 13:29 Source: patient Mode of arrival: ambulatory Limitations: no limitations History of Present Illness HPI Narrative: 22-year-old currently 8 weeks presents to the ER for evaluation of worsening vaginal bleeding with ongoing intermittent lower abdominal cramping. She was seen 1 week ago, had hCG level of around 7000 and a pelvic ultrasound showing IUP without heart rate. She reports the vaginal bleeding is now brown, some small clots present. Cramping is central and intermittent. No fever or chills. No vaginal discharge. She has an appointment with Dr. Bray on Sunday. Complaint: abdominal pain and vaginal bleeding Onset (ago): week(s) Pain Consistency: intermittent Location: pelvis Severity: moderate Quality: Cramping Radiation: pelvis Relieving factors: none Exacerbating factors: none Associated symptoms: denies other symptoms Vaginal discharge: none Vaginal bleeding: light Patient : Yes care: followed by OB Related Data Previous Rx's Medication Instructions Recorded acetaminophen 500 mg tablet 500 mg PO Q6H PRN fever or pain 04/07/22 (Tylenol Extra Strength) #14 tabs cyclobenzaprine 5 mg tablet 5 mg PO Q8H PRN pain (scale score 04/07/22 7-10) 5 days #14 tabs lidocaine 5 % topical patch 1 patch topical DAILY PRN pain #30 04/07/22 (Lidoderm) ea hydrocodone 5 mg-acetaminophen 325 2 tab PO TID PRN severe pain 12/22/22 mg tablet (scale score 7-10) #6 tabs ibuprofen 600 mg tablet 600 mg PO Q8H PRN pain #14 tabs 12/22/22 Allergies Allergy/AdvReac Type Severity Reaction Status Date / Time seafood Allergy Hives Verified 12/14/22 14:19 Review of Systems Review of Systems: Yes all other systems are reviewed and are negative PMFSH Social History Social History Advance Directives: No Advance Directives Information Provided: No Patient : Yes Physical Exam Vital Signs: Vital Signs: Last Vital Signs Temp 98 F 12/22/22 13:29 Pulse 84 12/22/22 13:29 Resp 19 12/22/22 13:29 BP 132/68 08/25/23 13:29 Pulse Ox 98 12/22/22 13:29 O2 Del Method Room Air 12/22/22 13:29 BMI result Body Mass Index 30.2 Appearance: Alert. Oriented X3. No acute distress. Head: normocephalic, atraumatic. Eyes: Pupils equal, round and reactive to light. ENT: Pharynx normal. No tonsillar swelling or exudate. Neck: Normal inspection. Neck supple. CVS: Normal heart rate and rhythm. Pulses normal. Respiratory: No respiratory distress. Breath sounds normal. Abdomen: Soft and nontender. +BS x4. pelvic deferred. Skin: Skin warm and dry. Normal skin color. Normal skin turgor. No rashes. Extremities: No lower extremity edema. No joint swelling. Neuro/psych: Oriented X 3. grossly normal, nonfocal. Normal speech and cognition. Medical Decision Making Medical Decision Making [facility] Narrative: 22 yo currenltly 8 weeks presenting with ongoing vaginal bleeding and intermittent cramping. no heart beat seen on U/S on 12/14. HCG today is downtrending. repeat pelvic U/S showing embryonic demise with no heart beat and size estimated 6 weeks. patient counseled on diagnosis, management, return precautions and need for close outpatient follow up. has appointment with OB on Sunday comfortable w/ d/c home with pain control and outpatient follow up. all questions answered Differential Diagnosis Differential Diagnoses: The differential diagnosis associated with the presentation includes miscarriage, missed miscarriage, threatened , normal 1st trimester bleeding Lab Data [facility] Lab Attestation statement: I reviewed the patient's lab results. hypoglycemia on BMP - finger stick 101. asymptomatic. likely lab error 12/22/22 13:49 12/22/22 13:49 Labs: Lab Results 12/22/22 12/22/22 12/22/22 Range/Units 13:49 13:49 13:49 WBC 10.5 (4.8-10.8) X10*3/uL RBC 4.78 (4.20-5.50) X10*6/uL Hgb 14.0 (12.0-16.0) g/dl Hct 42.4 (37.0-47.0) % MCV 88.7 (80.0-98.0) fL MCH 29.3 (27.0-33.0) pg MCHC 33.0 (31.0-35.0) g/dl RDW 13.0 (11.0-16.0) % Plt Count 293 (160-400) X10*3/uL MPV 9.5 (9.4-12.3) fL Immature Gran % (Auto) 0.4 (0.0-0.4) % Neut % (Auto) 66.5 (45-73) % Lymph % (Auto) 23.3 (20-40) % [place] % (Auto) 7.4 (2-11) % Eos % (Auto) 1.5 (0-4) % Baso % (Auto) 0.9 (0-2) % Lymph # (Auto) 2.4 (1.2-4.9) X10*3/uL [place] # (Auto) 0.8 (0.1-1.2) X10*3/uL Eos # (Auto) 0.2 (0.0-0.4) X10*3/uL Baso # (Auto) 0.1 (0.0-0.2) X10*3/uL Abs Immat Gran (auto) 0.04 H (0.00-0.03) X10*3/uL Absolute Neuts (auto) 7.0 (2.0-8.3) x10*3/uL Absolute Nucleated RBC 0.000 (0.0-0.012) X10*3/uL Nucleated RBC % (auto) 0.0 (0.0-0.2) /100WBC Sodium 138 (135-145) mmol/L Potassium 3.8 (3.3-5.1) mmol/L Chloride 105 (96-108) mmol/L Carbon Dioxide 27 (22-29) mmol/L Anion Gap 10 L (12-20) BUN 9 (9-16) mg/dL Creatinine 0.71 (0.5-1.4) mg/dL Estim Creat Clear Calc 115.7 Estimated GFR > 60 POC Glucose (60-115) mg/dL Random Glucose 58 L* (60-115) mg/dL Calcium 9.4 (8.4-10.2) mg/dL Magnesium 1.8 (1.6-2.6) mg/dL Total Bilirubin 0.4 (0.0-1.0) mg/dL Direct Bilirubin 0.1 (0.0-0.5) mg/dL AST 24 (5-31) U/L ALT 29 (0-31) U/L Alkaline Phosphatase 75 (39-117) U/L Total Protein 8.0 (6.5-8.0) g/dL Albumin 4.1 (3.5-5.0) g/dL Beta HCG, Quant 5449 mIU/mL Urine Color Yellow Urine Appearance Clear Urine pH 6.5 (5.0-9.0) Ur Specific [place] <= 1.005 (1.005-1.025) Urine Protein Negative (Neg-Trace) mg/dL Urine Glucose (UA) Negative (Negative) mg/dL Urine Ketones Negative (Negative) mg/dL Urine Blood Large (3+) H (Negative) Urine Nitrite Negative (Negative) Ur Leukocyte Esterase Negative (Negative) Urine RBC 0-2 (0-2) /HPF Urine WBC 0-5 (0-5) /HPF Ur Squamous Epith Cells 0-2 (0-2) /HPF Urine Bacteria None Seen (None Seen) Hyaline Casts 0-2 (0-2) /LPF 12/22/22 Range/Units 14:30 WBC (4.8-10.8) X10*3/uL RBC (4.20-5.50) X10*6/uL Hgb (12.0-16.0) g/dl Hct (37.0-47.0) % MCV (80.0-98.0) fL MCH (27.0-33.0) pg MCHC (31.0-35.0) g/dl RDW (11.0-16.0) % Plt Count (160-400) X10*3/uL MPV (9.4-12.3) fL Immature Gran % (Auto) (0.0-0.4) % Neut % (Auto) (45-73) % Lymph % (Auto) (20-40) % [place] % (Auto) (2-11) % Eos % (Auto) (0-4) % Baso % (Auto) (0-2) % Lymph # (Auto) (1.2-4.9) X10*3/uL [place] # (Auto) (0.1-1.2) X10*3/uL Eos # (Auto) (0.0-0.4) X10*3/uL Baso # (Auto) (0.0-0.2) X10*3/uL Abs Immat Gran (auto) (0.00-0.03) X10*3/uL Absolute Neuts (auto) (2.0-8.3) x10*3/uL Absolute Nucleated RBC (0.0-0.012) X10*3/uL Nucleated RBC % (auto) (0.0-0.2) /100WBC Sodium (135-145) mmol/L Potassium (3.3-5.1) mmol/L Chloride (96-108) mmol/L Carbon Dioxide (22-29) mmol/L Anion Gap (12-20) BUN (9-16) mg/dL Creatinine (0.5-1.4) mg/dL Estim Creat Clear Calc Estimated GFR POC Glucose 102 (60-115) mg/dL Random Glucose (60-115) mg/dL Calcium (8.4-10.2) mg/dL Magnesium (1.6-2.6) mg/dL Total Bilirubin (0.0-1.0) mg/dL Direct Bilirubin (0.0-0.5) mg/dL AST (5-31) U/L ALT (0-31) U/L Alkaline Phosphatase (39-117) U/L Total Protein (6.5-8.0) g/dL Albumin (3.5-5.0) g/dL Beta HCG, Quant mIU/mL Urine Color Urine Appearance Urine pH (5.0-9.0) Ur Specific [place] (1.005-1.025) Urine Protein (Neg-Trace) mg/dL Urine Glucose (UA) (Negative) mg/dL Urine Ketones (Negative) mg/dL Urine Blood (Negative) Urine Nitrite (Negative) Ur Leukocyte Esterase (Negative) Urine RBC (0-2) /HPF Urine WBC (0-5) /HPF Ur Squamous Epith Cells (0-2) /HPF Urine Bacteria (None Seen) Hyaline Casts (0-2) /LPF Independent Interpretation I performed an independent interpretation of an: Ultrasound Interpretation: no cardiac activity seen, agree w/ radiology read Radiology Impression Discussion of test interpretation with radiology: I have reviewed the radiologist's reading. Radiologist Impression: EXAMINATION:? US OBSTETRICAL ULTRASOUND CLINICAL INFORMATION:? 8 weeks . Bleeding. COMPARISON:? Previous exams November 29 and 12/14/2022 LMP: 10/21/2022. Gestational age by maternal dates is 8 weeks 6 days. Estimated date of delivery by maternal dates is 07/28/2023. TECHNIQUE: Transabdominal and transvaginal first trimester OB ultrasound. Transvaginal exam was performed for better visualization of the gestational sac. ? FINDINGS: Uterus measures 6.5 x 4.2 x 5.4 cm in dimension. There is an intrauterine gestational sac. There is a yolk sac. pole is seen. [place]-rump length measures 0.4 cm. This would suggest gestational age of 6 weeks 1 day with estimated date of delivery of 08/16/2023. This is behind date from LMP. No heart activity is seen. The right ovary is normal-appearing and measures 2.7 x 1.4 x 1.8 cm. Left ovary measures 2.5 x 2.5 x 2.2 cm. There is a 1.9 x 1.5 x 1.8 cm complex left ovarian cyst with low-level internal echoes suggestive of a corpus luteum. There is no fluid in the pelvis. US/US OB pelvic and transvaginal IMPRESSION: Intrauterine gestational sac, pole and yolk sac. [place]-rump length suggests gestational age 6 weeks 1 day with estimated date of delivery of 08/16/2023. This is behind date by LMP. No heart activity is seen. Appearance is concerning for embryonic demise. External Record Review External record reviewed: Outpatient record, Prior outpatient labs and Prior outpatient radiology Prescription Management I considered prescription management with: Pain Medication Critical Care Time Critical Care Time Critical Care Time: No Discharge Plan Discharge Clinical Impression: Miscarriage Patient Disposition: Home, Self-Care Instructions: Miscarriage (ED) Additional Instructions: Unfortunately your hormone went down and your ultrasound showed no heart beat, the embryo stopped growing around 6 weeks. Follow up with Dr. Bray for further management if miscarriage. Take the prescribed medications as needed for pain. If you develop new or worsening symptoms call 911 or come back to the ER for further evaluation. Prescriptions: New ibuprofen 600 mg tablet 600 mg PO Q8H PRN (Reason: pain) Qty: 14 0RF hydrocodone-acetaminophen 5-325 mg tablet 2 tab PO TID PRN (Reason: severe pain (scale score 7-10)) Qty: 6 0RF Rx Instructions: Partial Fill upon patient request. No Action acetaminophen [Tylenol Extra Strength] 500 mg tablet 500 mg PO Q6H PRN (Reason: fever or pain) Qty: 14 0RF lidocaine [Lidoderm] 5 % adhesive patch,medicated 1 patch topical DAILY MDD remove after 12 hours PRN (Reason: pain) Qty: 30 0RF Rx Instructions: leave on most painful area for up to 12 hrs cyclobenzaprine 5 mg tablet 5 mg PO Q8H PRN (Reason: pain (scale score 7-10)) 5 Days Qty: 14 0RF Referrals: Daphne Schmidt FNP [Primary Care Provider] - Robert Bray MD [Physician] - 12/25/22 (miscarriage)
--- NOTE | 2022-12-22 14:32 | PC.NURSE ---
poc 102, states she at 2 hrs ago, no signs or symptoms of hypoglycemia
[2022-12-22 14:33] LABS: Glucose, Whole Blood 102 mg/dL (60-115)
[2022-12-22 16:27] VITALS: BP 124/76; PULSE 76; RESP 19; O2SAT 98
== END 2022-12-22 16:28 | disposition home or self-care (01) ==
PROVIDERS: Physician Assistant; Emergency Provider Emergency Medicine Emergency Medical Services; PCP Registered Nurse
DX: O03.9 Complete or unspecified spontaneous abortion without complication (principal); Z3A.08 8 weeks gestation of pregnancy; Z79.899 Other long term (current) drug therapy
CPT/HCPCS: 36415; 76801; 76817; 80048; 80076; 81001; 82947; 83735; 84702; 85025; 99283; 99284

== ENCOUNTER 2022-12-24 23:13 | Emergency (ER) | payer OTHER, SELFPAY ==
--- NOTE | ~2022-12-24 | US_ITS ---
EXAMINATION: US OBSTETRICAL ULTRASOUND CLINICAL INFORMATION: Bleeding, cramping, evaluate for retained products of conception COMPARISON: 12/22/2022 TECHNIQUE: Sonographic evaluation of the pelvis was performed transabdominally and transvaginally. FINDINGS: Uterus measures 7.3 x 3.9 x 4.4 cm. No intrauterine gestational sac is seen. There is heterogeneity along the thickened lower uterine segment/cervix with which measures approximately 1.3 cm in thickness. Doppler evaluation demonstrates some flow in this region. Right ovary measures 3.0 x 1.4 x 2.0 cm and appears unremarkable. Left ovary measures 2.9 x 2.2 x 2.7 cm and contains a 1.6 cm complex structure with peripheral flow suspicious for a corpus luteal cyst. Doppler evaluation demonstrates bilateral ovarian flow. Trace pelvic free fluid is present. US/US OB pelvic and transvaginal IMPRESSION: 1. No intrauterine gestational sac. There is a thickened, heterogeneous appearance of the lower uterine segment/cervix with some flow in this region, suggesting incomplete miscarriage with some retained products of conception. 2. Trace pelvic free fluid.
[2022-12-24 23:30] VITALS: BP 109/53; PULSE 63; RESP 20; TEMP 36.7; O2SAT 100; BMI 30.2
--- NOTE | 2022-12-24 23:55 | ED_ITS ---
HPI - General Adult General Chief complaint: General Medical Stated complaint: miscarriage Time Seen by Provider: 12/24/22 23:41 Source: patient and family Mode of arrival: ambulatory Limitations: no limitations History of Present Illness HPI narrative: 22yo female here with complaints of vaginal bleeding passing large clots and tissue about one hour ago with increased cramping. Patient reports she was here 12/22/22 (around 8 weeks ) and told she had demise on US. Has appt with OB tomorrow at 130pm. Patient is here because she wants to be sure she passed the fetus. 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 Has changed her pad once since the initial larger episode of bleeding. No fevers, chills, vomiting, urinary symptoms. Related Data Previous Rx's Medication Instructions Recorded acetaminophen 500 mg tablet 500 mg PO Q6H PRN fever or pain 04/07/22 (Tylenol Extra Strength) #14 tabs cyclobenzaprine 5 mg tablet 5 mg PO Q8H PRN pain (scale score 04/07/22 7-10) 5 days #14 tabs lidocaine 5 % topical patch 1 patch topical DAILY PRN pain #30 04/07/22 (Lidoderm) ea hydrocodone 5 mg-acetaminophen 325 2 tab PO TID PRN severe pain 12/22/22 mg tablet (scale score 7-10) #6 tabs ibuprofen 600 mg tablet 600 mg PO Q8H PRN pain #14 tabs 12/22/22 Allergies Allergy/AdvReac Type Severity Reaction Status Date / Time seafood Allergy Hives Verified 12/14/22 14:19 Review of Systems Review of Systems: Yes all other systems are reviewed and are negative Constitutional: Constitutional: Reports no additional constitutional complaints, Denies body ache(s), Denies chills, Denies fever(s), Denies headache(s) and Denies weakness Eyes: Eyes: Reports no additional eye complaints and Denies change in vision ENT: Reports system reviewed and no additional complaints, except as documented, Denies dizziness, Denies headache(s), Denies nasal congestion, Avinash es nasal discharge and Denies neck pain Cardiovascular: Cardiovascular: Reports no additional cardiovascular complaints, Denies chest pain, Denies leg edema and Denies dyspnea Respiratory: Respiratory: Reports no additional respiratory complaints, Denies cough and Denies dyspnea Gastrointestinal: Gastrointestinal: Reports no additional gastrointestinal complaints, Reports abdominal pain, Denies diarrhea, Denies nausea and Denies vomiting Genitourinary: Genitourinary: Reports no additional female genitourinary complaints, Reports abnormal vaginal bleeding and Denies urinary incontinence Musculoskeletal: Musculoskeletal: Reports no additional musculoskeletal complaints, Denies back pain, Denies arthralgias, Denies joint swelling, Denies neck pain, Denies numbness and Denies tingling Integumentary/Breasts: Skin/Breast: Reports system reviewed and no additional complaints, except as docu and Denies rash Neurologic: Reports system reviewed and no additional complaints, except as documented, Denies dizziness, Denies headache(s), Denies numbness, Denies tingling and Denies weakness PMFSH Past Medical History Attestation statement: The following information was validated with the patient. Source: old records reviewed and nursing notes reviewed Social History Social History Advance Directives: No Advance Directives Information Provided: Yes Physical Exam ED Vital Signs: Vital Signs - 24 hr 12/24/22 23:30 Temperature 98.0 F Pulse Rate 63 Respiratory Rate 20 Blood Pressure 109/53 L Pulse Oximetry 100 Oxygen Delivery Method Room Air BMI result Body Mass Index 30.2 Const General: cooperative, healthy appearing, comfortable and no acute distress Orientation/consciousness: patient oriented x3 Limitations: no limitations HENMT Head: Yes normal to inspection Ears: hearing grossly normal bilaterally Eyes General: appearance normal, both eyes and all related structures Pupils: Equal, round and reactive pupils present Neck Neck: Yes normal visual inspection Chest Chest palpation & inspection: normal inspection of the chest Resp Effort & Inspection: normal respiratory effort Cardio Peripheral pulses: Peripheral pulses 2+ throughout GI Inspection: Yes normal to inspection Palpation (GI): Soft to palpation and nontender 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 The cervical os is open and pieces of tissue were noted. Bleeding is moderate. Skin General skin exam: no rashes or lesions noted Neuro General: patient oriented x3 and moves all extremities Cranial nerves: Yes Equal, round and reactive pupils present Cognition (Neuro): normal cognition Gait exam (Neuro): Normal gait present Course Course Course Narrative: 199-Sign out to Dr Weiss pending US and dispo Medications Administered Discontinued Medications Generic Name Dose Route Start Last Admin Trade Name Claire PRN Reason Stop Dose Admin Ketorolac Tromethamine 30 mg 12/24/22 23:54 12/25/22 01:10 Ketorolac Tromethamine 30 Mg/Ml Vial IM 12/24/22 23:55 30 mg ONCE ONE Administration Medical Decision Making Medical Decision Making MDM Narrative: 22 yo female here after having a large episode of vaginal bleeding with 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 On exam patients abdomen is soft/nontender VSS Will get repeat labs, pelvic US, pelvic exam. Differential Diagnosis Differential Diagnoses: The differential diagnosis associated with the presentation includes SAB, retained POC, incomplete AB Lab Data [facility] Lab Attestation statement: I reviewed the patient's lab results. 12/25/22 00:00 12/25/22 00:00 Labs: Lab Results 12/25/22 12/25/22 12/25/22 Range/Units 00:00 00:00 00:00 WBC 11.9 H (4.8-10.8) X10*3/uL RBC 4.36 (4.20-5.50) X10*6/uL Hgb 12.7 (12.0-16.0) g/dl Hct 37.6 (37.0-47.0) % MCV 86.2 (80.0-98.0) fL MCH 29.1 (27.0-33.0) pg MCHC 33.8 (31.0-35.0) g/dl RDW 12.6 (11.0-16.0) % Plt Count 276 (160-400) X10*3/uL MPV 9.2 L (9.4-12.3) fL Immature Gran % (Auto) 0.3 (0.0-0.4) % Neut % (Auto) 68.2 (45-73) % Lymph % (Auto) 22.2 (20-40) % [place] % (Auto) 7.0 (2-11) % Eos % (Auto) 1.5 (0-4) % Baso % (Auto) 0.8 (0-2) % Lymph # (Auto) 2.6 (1.2-4.9) X10*3/uL [place] # (Auto) 0.8 (0.1-1.2) X10*3/uL Eos # (Auto) 0.2 (0.0-0.4) X10*3/uL Baso # (Auto) 0.1 (0.0-0.2) X10*3/uL Abs Immat Gran (auto) 0.04 H (0.00-0.03) X10*3/uL Absolute Neuts (auto) 8.1 (2.0-8.3) x10*3/uL Absolute Nucleated RBC 0.000 (0.0-0.012) X10*3/uL Nucleated RBC % (auto) 0.0 (0.0-0.2) /100WBC PT 12.9 (11.1-13.3) SEC INR 1.1 (0.9-1.1) Sodium 137 (135-145) mmol/L Potassium 3.5 (3.3-5.1) mmol/L Chloride 105 (96-108) mmol/L Carbon Dioxide 24 (22-29) mmol/L Anion Gap 12 (12-20) BUN 11 (9-16) mg/dL Creatinine 0.72 (0.5-1.4) mg/dL Estim Creat Clear Calc 114.1 Estimated GFR > 60 Random Glucose 96 (60-115) mg/dL Calcium 8.9 (8.4-10.2) mg/dL Total Bilirubin 0.4 (0.0-1.0) mg/dL Direct Bilirubin 0.2 (0.0-0.5) mg/dL AST 23 (5-31) U/L ALT 22 (0-31) U/L Alkaline Phosphatase 66 (39-117) U/L Total Protein 7.3 (6.5-8.0) g/dL Albumin 3.9 (3.5-5.0) g/dL Beta HCG, Quant 2970 mIU/mL Independent Interpretation I performed an independent interpretation of an: Ultrasound Radiology Impression Discussion of test interpretation with radiology: I have reviewed the radiologist's reading. Discharge Plan Discharge Clinical Impression: Spontaneous Patient Disposition: Home, Self-Care Instructions: Miscarriage (ED) Additional Instructions: Keep your appointment today with OB at 130PM Return for bleeding through more then one pad per hour, worsening pain, fever >100.4 and/or vomiting You may continue the medication you have at home for pain Prescriptions: No Action acetaminophen [Tylenol Extra Strength] 500 mg tablet 500 mg PO Q6H PRN (Reason: fever or pain) Qty: 14 0RF lidocaine [Lidoderm] 5 % adhesive patch,medicated 1 patch topical DAILY MDD remove after 12 hours PRN (Reason: pain) Qty: 30 0RF Rx Instructions: leave on most painful area for up to 12 hrs cyclobenzaprine 5 mg tablet 5 mg PO Q8H PRN (Reason: pain (scale score 7-10)) 5 Days Qty: 14 0RF ibuprofen 600 mg tablet 600 mg PO Q8H PRN (Reason: pain) Qty: 14 0RF hydrocodone-acetaminophen 5-325 mg tablet 2 tab PO TID PRN (Reason: severe pain (scale score 7-10)) Qty: 6 0RF Rx Instructions: Partial Fill upon patient request. Referrals: Robert Bray MD [Physician] - 1 day Stand Alone Forms: Work/School Release
[2022-12-25 00:05] LABS: MANUAL DIFF FLAG NO
[2022-12-25 00:19] LABS: Basophils Absolute Auto 0.1 X10*3/uL (0.0-0.2); Basophils Percent Auto 0.8 % (0-2); Eosinophils Absolute Auto 0.2 X10*3/uL (0.0-0.4); Eosinophils Percent Auto 1.5 % (0-4); Hematocrit 37.6 % (37.0-47.0); Hemoglobin 12.7 g/dl (12.0-16.0); Imm Gran Abs Auto 0.04 X10*3/uL (0.00-0.03); Imm Gran Pct Auto 0.3 % (0.0-0.4); Lymphocytes Absolute Auto 2.6 X10*3/uL (1.2-4.9); Lymphocytes Percent Auto 22.2 % (20-40); Mean Corpuscular HGB Conc 33.8 g/dl (31.0-35.0); Mean Corpuscular Hemoglobin 29.1 pg (27.0-33.0); Mean Corpuscular Volume 86.2 fL (80.0-98.0); Mean Platelet Volume 9.2 fL (9.4-12.3); Monocytes Absolute Auto 0.8 X10*3/uL (0.1-1.2); Neutrophils Absolute Auto 8.1 x10*3/uL (2.0-8.3); Neutrophils Percent Auto 68.2 % (45-73); Platelet Count 276 X10*3/uL (160-400); Red Blood Count 4.36 X10*6/uL (4.20-5.50); Red Cell Distribution Width 12.6 % (11.0-16.0); White Blood Count 11.9 X10*3/uL (4.8-10.8)
[2022-12-25 00:22] LABS: INTERNATIONAL NORM RATIO 1.1 (0.9-1.1); Prothrombin Time 12.9 SEC (11.1-13.3)
[2022-12-25 00:27] LABS: Alanine Aminotransferase 22 U/L (0-31); Albumin Level 3.9 g/dL (3.5-5.0); Alkaline Phosphatase 66 U/L (39-117); Anion Gap 12 (12-20); Aspartate Amino Transferase 23 U/L (5-31); Bilirubin Direct 0.2 mg/dL (0.0-0.5); Bilirubin Total 0.4 mg/dL (0.0-1.0); Blood Urea Nitrogen 11 mg/dL (9-16); Calcium 8.9 mg/dL (8.4-10.2); Carbon Dioxide 24 mmol/L (22-29); Chloride 105 mmol/L (96-108); Creatinine Clr Calc Pharmacy 114.1; Estimated Glomerular Filt Rate > 60; Glucose Random 96 mg/dL (60-115); HCG Quantitative 2970 mIU/mL; Potassium 3.5 mmol/L (3.3-5.1); Sodium 137 mmol/L (135-145); Total Protein 7.3 g/dL (6.5-8.0)
[2022-12-25] MEDS: Ketorolac Tromethamine 30 MG/ML VIAL IM (01:10)
[2022-12-25 02:48] VITALS: BP 100/51; PULSE 65; RESP 18; TEMP 37.3; O2SAT 100
[2022-12-25 03:50] VITALS: BP 100/50; PULSE 64; RESP 18; TEMP 37.2; O2SAT 100
== END 2022-12-25 05:27 | disposition home or self-care (01) ==
PROVIDERS: Nurse Practitioner Family; Emergency Provider Emergency Medicine; PCP Internal Medicine
DX: O03.9 Complete or unspecified spontaneous abortion without complication (principal)
CPT/HCPCS: 36415; 76801; 76817; 80048; 80076; 84702; 85025; 85610; 96372; 99283; 99284; J1885

== ENCOUNTER 2022-12-25 13:52 | Outpatient (AMB) | payer OTHER, SELFPAY ==
--- NOTE | 2022-12-25 14:00 | MHC.OFFVIS ---
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 She was seen at [facility] a couple of weeks ago and was told she had of about 6 weeks but they could not see a heart she saw Dr. Bray a few days later and is there were similar findings but she did not meet the criteria for a missed miscarriage at that time. She had more cramping and bleeding on Sunday and went to the emergency room and had an ultrasound that showed a 6 week and 1 day size uterus but no heart. Then last evening she had severe pain and cramping and passing of clots at home in the bathroom for about an hour and came after that to the emergency room. She was evaluated with an ultrasound which showed some residual POCs.. Patient says she continued to bleed and passed clots for the next few hours in the emergency room and that they came and checked on her several times and worked at trying to get what ever was coming out of her cervix to come out. Since she left she has not had much in the way of bleeding and cramping and things are much better ever since. She is here with her partner. They have been talking about it and feel like they understand. PFSH Female Reproductive History Menstrual control method: none Total pregnancies: 1 Ab spontaneous: 1 Physical Exam Vital Signs: BMI result Body Mass Index 28.9 Other: Bleeding is consistent with moderate menses cervix is nulliparous and closed with no POCs or clotting material in os. Uterus is enlarged slightly retroverted consistency is consistent with an early IUP./SAB External Female Exam: normal external appearance Speculum Exam - Vagina: normal appearance of the vagina and normal vaginal discharge Speculum Exam - Cervix: normal appearance of the cervix Bimanual exam- vagina & uterus: normal bimanual exam, uterine size normal, consistency normal, uterine mobility normal, uterine shape normal and non-tender Bimanual Exam- Adnexa, other: normal adnexae, no masses and No adnexal tenderness Assessment & Plan Assessment & Plan (1) SAB (spontaneous ): Comment: Most likely complete status post emergency room care last night. See notes Code(s): O03.9 - Complete or unspecified spontaneous without complication (2) Miscarriage: Code(s): O03.9 - Complete or unspecified spontaneous without complication Plan I reviewed that she is probably mostly through her miscarriage at this point in time she suspects that she is too. Do not be surprised if she does get some small amount of cramping and passage of some more clotting material. Discussed the process of healing from the miscarriage and I recommend abstinence from unprotected sex at least until she gets another. For the very minimal 2-3 weeks from thereafter they can use condoms. She had been talking with her primary care provider the [facility] about getting a ParaGard IUD without hormones and may go there for it discussed that often times it is best to wait at least 6 weeks after a though it does not have to be as long as the 8 weeks after full-term . She does not want in interim method of control until such time as she gets an IUD. Discussed a plan for following quants and I will put in an order for a repeat quant in 2 weeks and we will see her in 2-3 weeks to see how she is doing post SAB. Orders: Orders HCG Quantitative 2 Weeks O03.9 - Complete or unspecified spontaneous without complication Coding Level of Care Code Est Pt Level 3 (72413) Diagnoses SAB (spontaneous ) O03.9
[2022-12-25 14:01] VITALS: BMI 28.9
== END 2022-12-25 15:18 | disposition home or self-care (01) ==
LOC: HO.HWS 13:53
PROVIDERS: PCP Internal Medicine; Visit Provider Advanced Practice Midwife
DX: O03.9 Complete or unspecified spontaneous abortion without complication (principal)
CPT/HCPCS: 99213

== ENCOUNTER → 2022-12-25 13:52 | Outpatient (BNVA) | payer OTHER, SELFPAY | PROVIDERS: PCP Internal Medicine; Visit Provider Advanced Practice Midwife | DX: O03.9 Complete or unspecified spontaneous abortion without complication (principal) | CPT/HCPCS: 99212 ==

== ENCOUNTER 2023-01-10 14:08 | Outpatient (REF) | payer OTHER, SELFPAY ==
[2023-01-10 17:13] LABS: HCG Quantitative 3 mIU/mL
== END 2023-01-10 14:09 | disposition home or self-care (01) ==
LOC: HO.LAB 14:08
PROVIDERS: PCP Internal Medicine; Visit Provider Advanced Practice Midwife
DX: Z30.09 Encounter for other general counseling and advice on contraception (principal); O03.9 Complete or unspecified spontaneous abortion without complication
CPT/HCPCS: 36415; 84702; 99212

== ENCOUNTER 2023-01-10 14:08 | Outpatient (AMB) | payer OTHER, SELFPAY ==
[2023-01-10 14:15] VITALS: BP 104/70; BMI 30.4
--- NOTE | 2023-01-10 14:15 | A.OFFVIS_ITS ---
Intake Vital Signs 01/10/23 14:15 Height 5 ft 2 in Weight 166 lb 3 oz BMI 30.4 BP 104/70 Blood Pressure Location Lt brachial Position Sitting Intake Visit Reasons: 2 week lab follow up Allergies seafood Allergy (Verified 01/10/23 14:17) Hives Medication List - Last Reconciled 01/10/23 by Faiza Florez CNM acetaminophen (Tylenol Extra Strength) 500 mg PO Q6H PRN cyclobenzaprine 5 mg PO Q8H PRN 5 days hydrocodone-acetaminophen 5-325 mg 2 tabs PO TID PRN ibuprofen 600 mg PO Q8H PRN lidocaine 5% (Lidoderm) 1 patch topical DAILY PRN MDD remove after 12 hours HPI 2 week lab follow up HPI Details Patient is here for follow-up of an SAB 2 weeks ago she went for the quant HCG on a 28 however she did not go for the 2 week repeat quant HCG. She says she for got. Feels well. She has gone back to the gym the bleeding lasted a little while but it has not been there for about a week and a half. She would like a ParaGard IUD. She says she can go today for the blood work I urged her to go any time in the next few days she can not go today. Teaching done about the ParaGard IUD to ensure it is really what she wants. She did not like being on hormones before. She is signing the form for the ParaGard IUD and we will call her when it gets in. Meanwhile she is also going to call when she gets her period. And if it is here we will have her come in on 1 of the heaviest days of her period. Physical Exam Vital Signs: Last Vital Signs BP 104/70 01/10/23 14:15 BMI result Body Mass Index 30.4 Results Reviewed Results Reviewed: Name: Omayra Littlejohn Age/Sex: 22/F : 2000 Unit#: [id number] Attend Dr: Kristen Weiss MD Re12/24/22 Status: DEP ER Location: [facility] Disch: SPEC : [id number] TINA: 12/25/22-0000 STATUS: COMP REQ : [id number] RECD: 12/25/22-[address]: Kirsty Valderrama HUMAN CAPITAL CONSULTANT COMP: 12/25/22-0027 ENTERED: 12/24/22-23[address] [facility] DR: Physician,Unknown ORDERED: Liver Panel, BMP, HCG Quant Test Result Flag Reference Site Sodium 137 135-145 mmol/L Potassium 3.5 3.3-5.1 mmol/L CL 105 96-108 mmol/L CO2 24 22-29 mmol/L Gap 12 12-20 BUN 11 9-16 mg/dL Creat 0.72 0.5-1.4 mg/dL Estimated CrCl 114.1 Provided height and weight: 157.48 cm, 74.843 kg. eGFR (calculated from the MDRD study equation) and eCrCl (calculated from the Cockcroft-Gault equation) are based on different parameters and may not yield comparable results. If eCrCl result is absurd, please check patient's height/weight. EGFR > 60 NOTE: For -Japanese individuals, multiply the result by 1.210. Chronic Kidney Disease: Estimated GFR < 60 mL/min/1.7 3m2 Severe Kidney Disease: Estimated GFR < 15 mL/min/1.73m2 Glucose, Random 96 60-115 mg/dL CA 8.9 8.4-10.2 mg/dL Total Bili 0.4 0.0-1.0 mg/dL Direct Bili 0.2 0.0-0.5 mg/dL AST (GOT) 23 5-31 U/L ALT (GPT) 22 0-31 U/L Protein, Total 7.3 6.5-8.0 g/dL Alb 3.9 3.5-5.0 g/dL Alk Phos 66 39-117 U/L HCG Quant 2970 mIU/mL Weeks post LMP Approximate hCG (Last Menstrual Period) Range (mIU/ml) 3 - 4 weeks 9 - 130 4 - 5 weeks 75 - 2,600 5 - 6 weeks 850 - 20,800 6 - 7 weeks 4000 - 100,200 7 - 12 weeks 11,500 - 289,000 12 - 16 weeks 18,300 - 137,000 16 - 29 weeks (2nd trimester) 1,400 - 53,000 29 - 41 weeks (3rd trimester) 940 - 60,000 The Maher B-hCG assay is used for the early detection of ; it cannot be used to diagnose any condition unrelated to . If a B-hCG level is not supported by the clinical evidence, results should be confirmed by an alternative method (qualitative urine hCG, for example). Assessment & Plan Assessment & Plan (1) SAB (spontaneous ): Comment: Most likely complete status post emergency room care last night. ( 12/24/22) See notes... Code(s): O03.9 - Complete or unspecified spontaneous without complication (2) control counseling: Code(s): Z30. - Encounter for other general counseling and advice on contraception Plan Patient is here for follow-up of an SAB 2 weeks ago she went for the quant HCG on a 28 however she did not go for the 2 week repeat quant HCG. She says she for got. Feels well. She has gone back to the gym the bleeding lasted a little while but it has not been there for about a week and a half. She would like a ParaGard IUD. She says she can go today for the blood work I urged her to go any time in the next few days she can not go today. Teaching done about the ParaGard IUD to ensure it is really what she wants. She did not like being on hormones before. She is signing the form for the ParaGard IUD and we will call her when it gets in. Meanwhile she is also going to call when she gets her period. And if it is here we will have her come in on 1 of the heaviest days of her period. Coding Level of Care Code Est Pt Level 3 (86968) Diagnoses SAB (spontaneous ) O03.9 control counseling Z30.
== END 2023-01-10 15:10 | disposition home or self-care (01) ==
PROVIDERS: PCP Internal Medicine; Visit Provider Advanced Practice Midwife
DX: O03.9 Complete or unspecified spontaneous abortion without complication (principal); Z30.09 Encounter for other general counseling and advice on contraception
CPT/HCPCS: 99213

== ENCOUNTER 2023-05-31 09:43 | Outpatient (AMB) | payer OTHER, SELFPAY ==
[2023-05-31 10:05] VITALS: BP 104/62; BMI 28.5
--- NOTE | 2023-05-31 10:05 | MHC.OFFVIS ---
Intake Vital Signs 05/31/23 10:05 Height 5 ft 2 in Weight 156 lb BMI 28.5 BP 104/62 Blood Pressure Location Lt brachial Position Sitting Intake Visit Reasons: IUD insertion Intake Note: Pt presents to the office today for an IUD insertion. Pt states she is on her menstrual cycle now. Allergies seafood Allergy (Verified 05/31/23 10:06) Hives Medication List - Last Reconciled 05/31/23 by Faiza Florez CNM acetaminophen (Tylenol Extra Strength) 500 mg PO Q6H PRN cyclobenzaprine 5 mg PO Q8H PRN 5 days hydrocodone-acetaminophen 5-325 mg 2 tabs PO TID PRN ibuprofen 600 mg PO Q8H PRN lidocaine 5% (Lidoderm) 1 patch topical DAILY PRN MDD remove after 12 hours HPI IUD insertion HPI Details Patient is here for ParaGard IUD insertion that was discussed at a visit in December. She had had a miscarriage then and needed to follow quants to 0. She said that every time she had her. She called and she was only given this appointment this week. Her periods started on Sunday. She informs me that she did have sex last night when I asked her why she had sex last night if she was planning on having an IUD inserted today she then informed me that she used a condom for the intercourse. [facility] Social History (Updated 05/31/23 @ 10:06 by Tierra Fisher MA) Household Members: Significant Other Housing: Apartment Alcohol intake: current Alcohol intake frequency: a few times a month Patient Tobacco Use Status: Never used Tobacco Female Reproductive History Menstrual Duration of menses: 6-7 days Date of last menstrual period: 05/27/23 control method: none Total pregnancies: 1 Ab spontaneous: 1 Physical Exam Vital Signs: Last Vital Signs BP 104/62 05/31/23 10:05 BMI result Body Mass Index 28.5 Office Procedures IUD Insert/Removal Details Details: ---Patient is here for her IUD and insertion. Bimanual exam was done. Her uterus is firm, nontender, and appropriate sized, and is . The cervix was swabbed with Betadine. The IUD strings were grasped with ring forceps, and as patient coughed the IUD was removed easily with 1 tug. ---The cervix was recleaned with Betadine. Tenaculum was placed on the cervix slowly to minimize cramping. The uterus was sounded slowly and gently she show a measurement of 7 cm. The IUD was removed from its package, after checking identifying information and lot dates and expiration dates and and gently inserted into the os, as per the IUD insertion procedure. The strings were then trimmed to 3-4 centimetres. The tenaculum was removed and gentle pressure applied with a swab, until any bleeding subsided from the tenaculum sites. The speculum was gently removed. The patient sat up. I Reviewed what to expect, and what indications would necessitate a call. Pt to call for fever, untoward pain or cramping. I reviewed any appropriate backup method. Pt to return for recheck as scheduled. 29516-IHT Insertion Procedure code (CPT) selection complete Office Meds Jessicaalix T 380A 380 square mm intrauterine device Performing Provider: Faiza Florez CNM [facility] Administered by: NINI Arambula on 05/31/23 11:27 Dose Route Admin Location Dispensed Lot Number Expiration Date [facility] Guidance Counselor 1 device intrauterine [facility] [place] 1 device [id number] 08/27/26 [address]-6 [employer] Results AMB Test Urine AMB Test Urine Negative Last Edit by Tierra Fisher MA on 05/31/23 10:11 Results Reviewed Results Reviewed: Laboratory Last Values [facility] Negative 05/31/23 10:11 Assessment & Plan Assessment & Plan (1) control counseling: Code(s): Z30.09 - Encounter for other general counseling and advice on contraception (2) Encounter for IUD insertion: Comment: ParaGard T380A IUD inserted 05/31/2023 Code(s): Z30.430 - Encounter for insertion of intrauterine contraceptive device Plan Reviewed what to expect the there is a possibility that her periods could get longer also discussed strategies to avoid removing the IUD along with her menstrual cup or tampons at the end of menses. Discussed what to do if she has any signs of expulsion or infection recommend no sex for the next 3 days because of use of the tenaculum though she did not bleed excessively at all. We will see her in 5-6 weeks after her next period to see how she is doing with it. Orders: Orders CT NG by PCR Today Z11.3 - Encounter for screening for infections with a predominantly sexual mode of transmission AMB IUD Insertion/Removal - Practice Supplied Today Z30.430 - Encounter for insertion of intrauterine contraceptive device AMB HCG Urine Test Today Z32.02 - Encounter for test, result negative Bacterial Vaginosis Panel Today Z11.3 - Encounter for screening for infections with a predominantly sexual mode of transmission Coding Level of Care Code Est Pt Level 3 (22501) Diagnoses control counseling Z30.09 Encounter for IUD insertion Z30.430 CPT Codes Details - CPT: 44357-VJC Insertion ([id number])
== END 2023-05-31 11:01 | disposition home or self-care (01) ==
LOC: HO.HWSM 09:43
PROVIDERS: PCP Internal Medicine; Visit Provider Advanced Practice Midwife
DX: Z30.430 Encounter for insertion of intrauterine contraceptive device (principal)
CPT/HCPCS: 58300

== ENCOUNTER 2023-05-31 09:43 | Outpatient (REF) | payer OTHER, SELFPAY ==
[2023-06-01 02:46] LABS: CT PCR NOT DETECTED (Not Detect.); NG PCR NOT DETECTED (Not Detect.)
[2023-06-01 14:00] LABS: BV Int Neg Control Negative (Negative); BV Int Pos Control Positive (Positive)
== END 2023-05-31 09:44 | disposition home or self-care (01) ==
LOC: HO.LNP 09:43
PROVIDERS: PCP Internal Medicine; Visit Provider Advanced Practice Midwife
DX: Z30.430 Encounter for insertion of intrauterine contraceptive device (principal); Z30.09 Encounter for other general counseling and advice on contraception
CPT/HCPCS: 0353U; 58300; 87480; 87510; 87660; J7300

== ENCOUNTER 2023-07-03 11:12 | Outpatient (AMB) | payer OTHER, SELFPAY ==
--- NOTE | 2023-07-03 11:34 | MHC.OFFVIS ---
Intake Vital Signs 07/03/23 11:37 Height 5 ft 2 in Weight 162 lb BMI 29.6 BP 126/70 Intake Visit Reasons: IUD Check Technical Services Rep Required: No Information Interpreted: clinical only Energy Efficiency Specialist: Energy Efficiency Specialist Present Allergies seafood Allergy (Verified 07/03/23 11:38) Hives Medication List - Last Reconciled 07/03/23 by Faiza Florez CNM acetaminophen (Tylenol Extra Strength) 500 mg PO Q6H PRN copper (ParaGard T 380A) intrauterine cyclobenzaprine 5 mg PO Q8H PRN 5 days hydrocodone-acetaminophen 5-325 mg 2 tabs PO TID PRN ibuprofen 600 mg PO Q8H PRN lidocaine 5% (Lidoderm) 1 patch topical DAILY PRN MDD remove after 12 hours Is last menstrual period known: Yes Last menstrual period: 06/22/23 Do you need a note to return to daycare/school/sports/work: No HPI IUD Check HPI Details Patient is here for her 6 week ParaGard IUD check she did notice that her period was heavier and it lasted a full 7 days and she had a few days of spotting before and also after. She has checked the strings and her partner could feel them as well but they did not bother her and while she did have cramping she used stick on heating pad and it helped her. She says she is going to give it a few months and see how things are over time. [facility] Social History (Updated 05/31/23 @ 10:06 by Tierra Fisher MA) Household Members: Significant Other Housing: Apartment Alcohol intake: current Alcohol intake frequency: a few times a month Patient Tobacco Use Status: Never used Tobacco Female Reproductive History Menstrual Age of Menarche: 10 Duration of menses: 6-7 days Date of last menstrual period: 06/22/23 control method: copper IUCD Total pregnancies: 1 Full term: 0 History of abnormal pap smear: No (unsure date,negative pap-says 1-2 yrs ago at [facility], no julian) Physical Exam Vital Signs: Last Vital Signs BP 126/70 07/03/23 11:37 BMI result Body Mass Index 29.6 Other: Nulliparous cervix pink smooth healthy appearing with scant white clear discharge with 2 ParaGard strings visible. External Female Exam: normal external appearance and normal appearance of the urethra Speculum Exam - Vagina: normal appearance of the vagina and normal vaginal discharge Speculum Exam - Cervix: normal appearance of the cervix and Cervical os closed Assessment & Plan Assessment & Plan (1) control counseling: Code(s): Z30.09 - Encounter for other general counseling and advice on contraception (2) Encounter for routine checking of intrauterine contraceptive device (IUD): Code(s): Z30.431 - Encounter for routine checking of intrauterine contraceptive device Plan Discussed normal side effects of the ParaGard and it is normal to expect heavier slightly longer periods she will need to see for herself how this is for her and only she can decide. Normally would recommend giving it at least 3-6 months before deciding on another method I did review what she is used in the past which include condoms and the Nexplanon which did not work well for her because of its negative side effects of bleeding for months and months. Discussed that options if this did not work out would include short-term methods such as pills patches and rings, and alternatively a long-term option would be the Mirena IU S.. She said her last Pap smear was done here at the [facility] the last couple of years but we do not have records for so she may either obtain the records but we will see her in 1 year. Coding Level of Care Code Est Pt Level 3 (66934) Diagnoses control counseling Z30.09 Encounter for routine checking of intrauterine contraceptive device (IUD) Z30.431
[2023-07-03 11:37] VITALS: BP 126/70; BMI 29.6
== END 2023-07-03 12:34 | disposition home or self-care (01) ==
LOC: HO.HWSM 11:13
PROVIDERS: PCP Internal Medicine; Visit Provider Advanced Practice Midwife
DX: Z30.09 Encounter for other general counseling and advice on contraception (principal); Z30.431 Encounter for routine checking of intrauterine contraceptive device
CPT/HCPCS: 99213

== ENCOUNTER → 2023-07-03 11:12 | Outpatient (BNVA) | payer OTHER, SELFPAY | PROVIDERS: PCP Internal Medicine; Visit Provider Advanced Practice Midwife | DX: Z30.431 Encounter for routine checking of intrauterine contraceptive device (principal); Z30.09 Encounter for other general counseling and advice on contraception | CPT/HCPCS: 99212 ==

== ENCOUNTER 2023-09-11 13:00 | Outpatient (REF) | payer OTHER, SELFPAY | END 2023-09-11 13:01 | disposition home or self-care (01) | LOC: HO.LNP 13:00 | PROVIDERS: Visit Provider Advanced Practice Midwife | DX: Z12.4 Encounter for screening for malignant neoplasm of cervix (principal) | CPT/HCPCS: 88142 ==

== ENCOUNTER 2023-09-27 10:49 | Outpatient (REF) | payer OTHER, SELFPAY ==
[2023-09-27 13:14] LABS: MANUAL DIFF FLAG NO
[2023-09-27 13:21] LABS: CT PCR NOT DETECTED (Not Detect.); NG PCR NOT DETECTED (Not Detect.)
[2023-09-27 13:42] LABS: Basophils Absolute Auto 0.1 X10*3/uL (0.0-0.2); Basophils Percent Auto 0.8 % (0-2); Eosinophils Absolute Auto 0.2 X10*3/uL (0.0-0.4); Hematocrit 40.6 % (37.0-47.0); Hemoglobin 13.2 g/dl (12.0-16.0); Imm Gran Abs Auto 0.03 X10*3/uL (0.00-0.03); Imm Gran Pct Auto 0.4 % (0.0-0.4); Lymphocytes Absolute Auto 2.2 X10*3/uL (1.2-4.9); Lymphocytes Percent Auto 26.6 % (20-40); Mean Corpuscular HGB Conc 32.5 g/dl (31.0-35.0); Mean Corpuscular Hemoglobin 28.8 pg (27.0-33.0); Mean Corpuscular Volume 88.5 fL (80.0-98.0); Mean Platelet Volume 9.8 fL (9.4-12.3); Monocytes Absolute Auto 0.5 X10*3/uL (0.1-1.2); Monocytes Percent Auto 5.6 % (2-11); Neutrophils Absolute Auto 5.4 x10*3/uL (2.0-8.3); Neutrophils Percent Auto 64.6 % (45-73); Platelet Count 332 X10*3/uL (160-400); Red Blood Count 4.59 X10*6/uL (4.20-5.50); Red Cell Distribution Width 12.4 % (11.0-16.0); White Blood Count 8.4 X10*3/uL (4.8-10.8)
[2023-09-27 14:12] LABS: Anion Gap 11 (12-20); Blood Urea Nitrogen 12 mg/dL (9-16); Carbon Dioxide 26 mmol/L (22-29); Chloride 107 mmol/L (96-108); Estimated Glomerular Filt Rate > 60; Glucose Random 71 mg/dL (60-115); Potassium 3.7 mmol/L (3.3-5.1); Sodium 140 mmol/L (135-145)
[2023-09-27 14:15] LABS: Estimated Average Glucose 94 mg/dL; Hemoglobin A1c % 4.9 % (<6.0)
[2023-09-27 14:32] LABS: Syphilis Screen Nonreactive (Nonreactive)
[2023-09-28 08:25] LABS: Hepatitis A Antibody IgG Nonreactive (Nonreactive); ~Hepatitis A Antibody IgG 0.72 S/CO (0.00-0.99)
[2023-09-28 08:26] LABS: HBS Num1 0.66 mIU/mL (0-7.99); HBc Num1 0.15 S/CO (0.00-0.79); HBsAGNum1 0.26 S/CO (0.00-0.99); HIV AB/AG Nonreactive (Nonreactive); HIV Num 1 0.06 S/CO (0.00-0.99); Hepatitis B Core Antibody Nonreactive (Nonreactive); Hepatitis B Surface Antigen Negative (Negative); ~HepC Num1 0.11 S/CO (0.00-0.79); ~Hepatitis B Surface Antibody NONREACTIVE (Nonreactive); ~Hepatitis C Antibody Nonreactive (Nonreactive)
== END 2023-09-27 10:50 | disposition home or self-care (01) ==
LOC: HO.HHCL 10:49
PROVIDERS: Visit Provider Family Medicine
DX: Z11.3 Encounter for screening for infections with a predominantly sexual mode of transmission (principal); Z86.2 Personal history of diseases of the blood and blood-forming organs and certain disorders involving the immune mechanism; Z01.84 Encounter for antibody response examination; E16.2 Hypoglycemia, unspecified
CPT/HCPCS: 0353U; 36415; 80048; 83036; 84443; 85025; 86704; 86706; 86708; 86780; 86803; 87340; 87389

== ENCOUNTER 2023-11-29 08:00 | Outpatient (RCR) | payer OTHER, SELFPAY | END 2023-12-19 14:50 | disposition home or self-care (01) | LOC: HO.PT 08:00 | PROVIDERS: PCP Family Medicine; Visit Provider Family Medicine | DX: M54.6 Pain in thoracic spine (principal) | CPT/HCPCS: 97110; 97112; 97140; 97161; 97530 ==

== ENCOUNTER 2023-12-21 18:16 | Emergency (ER) | payer OTHER, SELFPAY ==
[2023-12-21 18:20] VITALS: BP 124/72; PULSE 68; RESP 14; TEMP 37.1; O2SAT 100; BMI 29.3
--- NOTE | 2023-12-21 18:24 | ED.URI ---
HPI - URI/Sore Throat General Chief Complaint: Upper Respiratory Symptoms Stated Complaint: fever, chills, dizziness, aches Time Seen by Provider: 12/21/23 19:41 Source: patient Mode of arrival: ambulatory Limitations: no limitations History of Present Illness ED Provider: JERAD RO PA-C HPI Narrative: 23 year old female with no significant past medical history presents to the ED today requesting COVID testing. Reports symptoms of fever (99F), chills, body aches and dizziness which started today. Denies known sick contacts. Vaccinations UTD. Denies sore throat, cough, chest pain, sob, dyspnea, calf pain/swelling. No recent travel or long car rides. Related Data Home Medications ?Medication ?Instructions ?Recorded ?Confirmed copper 380 square mm intrauterine intrauterine 07/03/23 07/03/23 device (ParaGard T 380A) Previous Rx's ?Medication ?Instructions ?Recorded acetaminophen 500 mg tablet 500 mg PO Q6H PRN fever or pain 04/07/22 (Tylenol Extra Strength) #14 tabs cyclobenzaprine 5 mg tablet 5 mg PO Q8H PRN pain (scale score 04/07/22 7-10) 5 days #14 tabs lidocaine 5 % topical patch 1 patch topical DAILY PRN pain #30 04/07/22 (Lidoderm) ea hydrocodone 5 mg-acetaminophen 325 2 tab PO TID PRN severe pain 12/22/22 mg tablet (scale score 7-10) #6 tabs ibuprofen 600 mg tablet 600 mg PO Q8H PRN pain #14 tabs 12/22/22 Allergies Allergy/AdvReac Type Severity Reaction Status Date / Time seafood Allergy Hives Verified 12/21/23 18:21 Review of Systems Review of Systems: Constitutional: No fever, fatigue, night sweats, weight changes, +chills ENT/Mouth: No ear pain, hearing loss, nasal congestion, sinus pain, rhinorrhea, sore throat Eyes: No eye pain, swelling, redness, vision changes, discharge Cardio: No chest pain, palpitations, ONEAL, orthopnea, peripheral edema Pulm: No SOB, cough, sputum, wheezing, dyspnea, hemoptysis GI: No nausea, vomiting, hematemesis, abdominal pain, diarrhea, constipation, hematochezia, melena : No irregular bleeding, dysuria, frequency, urgency, hesitancy, hematuria, flank pain, urinary flow changes, urinary incontinence or retention MSK: No back pain, neck pain, joint pain, +myalgias Skin: No lesions, rashes Neuro: No weakness, numbness, paresthesias, LOC, dizziness, headache Psych: No anxiety/panic, depression, SI/HI, AH/VH All other systems reviewed and are negative. [facility] Past Medical History Attestation statement: The following information was validated with the patient. Source: old records reviewed and nursing notes reviewed Social History Social History Household Members: Significant Other Housing: Apartment Alcohol intake: current Alcohol intake frequency: a few times a month Patient Tobacco Use Status: Never used Tobacco Physical Exam Vital Signs: Vital Signs: Last Vital Signs Temp 98.7 F 12/21/23 18:20 Pulse 68 12/21/23 18:20 Resp 14 12/21/23 18:20 BP 124/72 12/21/23 18:20 Pulse Ox 100 12/21/23 18:20 O2 Del Method Room Air 12/21/23 18:20 BMI result Body Mass Index 29.3 Vital signs stable General: Well appearing, in no acute distress. Skin: Warm, dry, intact. No rashes or lesions. Head: Normocephalic, atraumatic. EENT: Hearing is intact b/l. Conjunctiva clear. PERRLA. Moist mucous membranes.? Neck: Supple without LAD. FROM. Trachea midline.? Cardiac: Chest wall symmetric. RRR. No MRG. No JVD. Lungs: Normal respiratory effort without accessory muscle use. CTA bilaterally. No rales, rhonchi, or wheezes.? Abdomen: Soft, non-tender, non-distended. No rebound tenderness or guarding. Positive BS x4. Back: No midline spinous or paraspinal tenderness. No step off deformity. Ext: Upper and lower extremities atraumatic, without tenderness, deformity, swelling or erythema. Full ROM throughout. Capillary refill <2 seconds in all extremities. Pulses 2+ equal and bilateral. Neuro: AOx3. Normal speech. CN 2-12 grossly intact. Strength 5/5 intact throughout. No saddle anesthesia. Sensation intact to light touch. NV intact distally. Reflexes 2+ bilaterally. Ambulating with steady gait. Psych: Appropriate mood and affect. Responds appropriately to questions. Course Course Course Narrative: This is a Rapid Medical Examination (RME) performed by Lucie Ro PA-C in triage. Full HPI, ROS, assessment and treatment plan per primary provider in the Main ED. 23 yo female here requesting covid test for symptoms of fever (99F), chills, body aches, and dizziness. no known sick contacts. Plan: viral/ strep swabs Reevaluation(s) Reevaluation #1: 1949 -- Patient tested negative for covid/flu/rsv and strep throat. Symptoms consistent with possible viral infection. Educated on symptomatic treatment. Patient has remained stable throughout ED visit today. Discussed worrisome signs and symptoms and when to return to the ED. All questions answered at this time. Patient is agreeable with disposition and stable for discharge. Medical Decision Making Medical Decision Making [facility] Narrative: 23 year old female with no significant past medical history presents to the ED today requesting COVID testing. Vital signs stable. Afebrile. She is nontoxic-appearing and in no acute distress. Skin warm, dry, intact. No rashes. Posterior oropharynx WNL. Bilateral EACs and TMs WNL. Lungs are clear to auscultation bilaterally. No calf tenderness bilaterally. Exam nonfocal. PERRLA. Ambulating with steady gait. Differential diagnosis includes viral syndrome. Presentation not consistent with meningitis, strep throat, mono, [employer], retropharyngeal abscess, ICH, CVA/TIA, cerebellar stroke. Plan for viral testing, strep swab and re-evaluation. Differential Diagnosis Differential Diagnoses: The differential diagnosis associated with the presentation includes as above. Admission/Observation not indicated. Lab Data [facility] Lab Attestation statement: I reviewed the patient's lab results. as above. Labs: Lab Results 12/21/23 Range/Units 18:44 Influenza Type A (PCR) NEGATIVE (Negative) Influenza Type B (PCR) NEGATIVE (Negative) RSV RNA Qual (PCR) NEGATIVE (Negative) SARS-CoV-2 RNA (RT-PCR) NEGATIVE (Negative) S. pyogenes GrpA NEAL Negative (Negative) External Record Review External record reviewed: Inpatient record Social Determinants Patient?s care significantly limited by Social Determinants of Health including: Other Social Determinant of Health Critical Care Time Critical Care Time Critical Care Time: No Discharge Plan Discharge Clinical Impression: Viral syndrome Patient Disposition: Home, Self-Care Instructions: Viral Syndrome (ED) Additional Instructions: You tested negative for COVID, flu, RSV, strep throat. You likely have a virus. Treatment for this is symptomatic. You do not require antibiotics. Alternate Motrin and Tylenol at home for fevers or body aches. Follow up with PCP as needed. Return with new or worsening symptoms. In the case of an emergency call 911. Prescriptions: No Action acetaminophen [Tylenol Extra Strength] 500 mg tablet 500 mg PO Q6H PRN (Reason: fever or pain) Qty: 14 0RF lidocaine [Lidoderm] 5 % adhesive patch,medicated 1 patch topical DAILY MDD remove after 12 hours PRN (Reason: pain) Qty: 30 0RF Rx Instructions: leave on most painful area for up to 12 hrs cyclobenzaprine 5 mg tablet 5 mg PO Q8H PRN (Reason: pain (scale score 7-10)) 5 Days Qty: 14 0RF ibuprofen 600 mg tablet 600 mg PO Q8H PRN (Reason: pain) Qty: 14 0RF hydrocodone-acetaminophen 5-325 mg tablet 2 tab PO TID PRN (Reason: severe pain (scale score 7-10)) Qty: 6 0RF Rx Instructions: Partial Fill upon patient request. ParaGard T 380A 380 square mm intrauterine device intrauterine Print Language: Serbian
[2023-12-21 19:04] LABS: IDNOW Serial# 58CA691E; Strep A Nucleic Acid Negative (Negative)
[2023-12-21 19:32] LABS: Influenza A PCR NEGATIVE (Negative); Influenza B PCR NEGATIVE (Negative); Resp Syncy Virus RNA Qual PCR NEGATIVE (Negative); SARS COV2 PCR INHOUSE NEGATIVE (Negative)
[2023-12-21 19:45] VITALS: BP 124/72; PULSE 68; RESP 14; TEMP 37.1; O2SAT 100
== END 2023-12-21 19:50 | disposition home or self-care (01) ==
PROVIDERS: Physician Assistant Medical; Emergency Provider Emergency Medicine Emergency Medical Services; PCP Family Medicine
DX: B34.9 Viral infection, unspecified (principal); R50.9 Fever, unspecified; Z03.818 Encounter for observation for suspected exposure to other biological agents ruled out
CPT/HCPCS: 0241U; 87651; 99282; 99283

== ENCOUNTER 2024-04-24 11:39 | Outpatient (REF) | payer OTHER, SELFPAY ==
[2024-04-24 13:15] LABS: MANUAL DIFF FLAG NO
[2024-04-24 13:21] LABS: Basophils Absolute Auto 0.1 X10*3/uL (0.0-0.2); Basophils Percent Auto 1.2 % (0-2); Eosinophils Absolute Auto 0.2 X10*3/uL (0.0-0.4); Eosinophils Percent Auto 3.1 % (0-4); Hematocrit 39.1 % (37.0-47.0); Hemoglobin 12.7 g/dl (12.0-16.0); Imm Gran Abs Auto 0.02 X10*3/uL (0.00-0.03); Imm Gran Pct Auto 0.3 % (0.0-0.4); Lymphocytes Absolute Auto 2.2 X10*3/uL (1.2-4.9); Lymphocytes Percent Auto 32.5 % (20-40); Mean Corpuscular HGB Conc 32.5 g/dl (31.0-35.0); Mean Corpuscular Hemoglobin 28.2 pg (27.0-33.0); Mean Corpuscular Volume 86.9 fL (80.0-98.0); Mean Platelet Volume 9.9 fL (9.4-12.3); Monocytes Absolute Auto 0.6 X10*3/uL (0.1-1.2); Monocytes Percent Auto 9.4 % (2-11); Neutrophils Absolute Auto 3.6 x10*3/uL (2.0-8.3); Neutrophils Percent Auto 53.5 % (45-73); Platelet Count 303 X10*3/uL (160-400); Red Cell Distribution Width 12.6 % (11.0-16.0); White Blood Count 6.8 X10*3/uL (4.8-10.8)
[2024-04-24 13:53] LABS: TSH reflex Free T4 1.66 uIU/mL (0.32-4.0)
== END 2024-04-24 11:40 | disposition home or self-care (01) ==
LOC: HO.HHCL 11:39
PROVIDERS: Visit Provider Family Medicine
DX: R61 Generalized hyperhidrosis (principal); R42 Dizziness and giddiness
CPT/HCPCS: 36415; 84443; 85025

== ENCOUNTER 2024-09-09 | Outpatient (REF) | payer OTHER, SELFPAY | END 2024-09-09 00:01 | disposition home or self-care (01) | LOC: HO.HHCLNP | PROVIDERS: Visit Provider Internal Medicine | DX: Z13.89 Encounter for screening for other disorder (principal) ==

== ENCOUNTER 2024-10-06 14:01 | Outpatient (REF) | payer OTHER, SELFPAY ==
--- NOTE | ~2024-10-06 | US_ITS ---
EXAMINATION: US PELVIS CLINICAL INFORMATION: Left lower quadrant pain, COMPARISON: December 25, 2022 TECHNIQUE: Ultrasound of the pelvis is performed using both transabdominal and transvaginal transducers along with Doppler. Transvaginal imaging is performed due to inadequate visualization transabdominally. FINDINGS: Uterus: The uterus is anteflexed and measures 8.2 x 2.8 x 4.5 cm cm. The endometrial stripe is 3-4 mm. The uterus is smooth in contour and has normal myometrial echogenicity. Within the mid to lower uterine canal, there is a linear echogenic device with ringdown artifact and posterior acoustic shadowing consistent with an IUD. Inferior margin of the IUD is just above the endocervical os. There is a small amount of fluid within the uterine canal. Adnexa: Both ovaries are visualized. There is normal color flow to the adnexa. There is no ovarian torsion. There is no pelvic ascites or fluid collection. Right ovary measures 3.1 x 2.1 x 2.8 cm. Normal follicles are demonstrated. Left ovary measures 2.9 x 2.0 x 3.0 cm. Follicles are noted. US/US pelvic and transvaginal IMPRESSION: There is an IUD in place. It has migrated into the mid to lower uterine canal. A small amount fluid is present in the uterine canal. This is a nonspecific finding, endometritis cannot be ruled out. Electronically signed by: Patric Cobb MD 10/06/2024 03:11 PM EDT
--- OUTSIDE RECORDS SUMMARY | 2024-10-06 15:56 | XMS_ITS | Clinical Summary ---
Author Organization [employer] Address [address] [facility] [address] [place] [address] Care Team Providers Care Wire Straightening Machine Operator Name Role Phone Danette Albarran MD Primary Care Provider [phone] Allergies Active Allergy Reactions Criticality Noted Date Comments Shellfish Allergy Hives,Itching 09/29/2022 Medications PARAGARD INTRAUTERINE COPPER IU by Intrauterine route. Active Fiber 500 MG capsule Take 500 mg by mouth 2 times daily. 180 capsule 2 024 Active senna (Senokot) 8.6 MG tablet Take 1 tablet (8.6 mg) by mouth if needed at bedtime for constipation. 90 tablet 1 024 Active bismuth subsalicylate (Pepto Bismol) 262 MG chewable tabletIndication s:Gastroenteriti s One tab po four times a day for 14 days 56 tablet 024 Active hydrocortisone 2.5 % creamIndications :Allergic reaction, initial encounter Apply topically 2 times daily. 28 g 1 025 Active diphenhydrAMINE (BENADryl) 25 MG tabletIndication s:Allergic reaction, initial encounter Take 1 tablet (25 mg) by mouth every 6 (six) hours if needed for itching. 30 tablet 025 Active penicillin v potassium (Veetid) 500 MG tablet Take 1 tablet (500 mg) by mouth 2 times daily for 10 days. 20 tablet 025 2024 Active ibuprofen 600 MG tablet Take 1 tablet (600 mg) by mouth every 6 (six) hours if needed for mild pain or fever. 40 tablet 1 025 Active ibuprofen 600 MG tablet Take 1 tablet by mouth every 8 (eight) hours if needed. 023 2024 Discontinued(R eorder (will not trigger notification to Pharmacy)) sulfamethoxazole -trimethoprim (Bactrim DS) 800-160 MG tablet Take 1 tablet by mouth 2 times daily for 5 days. 10 tablet 025 2024 Active Problems Problem Noted Date Diagnosed Date Macromastia 09/23/2024 Assessment & Plan (09/27/2024 4:20 PM EDT): - Pt is having neck, back, and shoulder pain - Seen by plastic surgeon - Scheduled for breasts reduction on 01/13/25 - Will schedule for pre-op in November Allergic reaction 07/21/2024 Assessment & Plan (07/21/2024 4:54 PM EDT): I advised to avoid offending agent, to take out the acrylic from her nails I will prescribe hydrocortisone cream 2.5 To apply twice daily no more than 2 weeks I prescribed Benadryl 25 mg every 6 hours if needed I will refer patient to air conditioning specialist Sweating profusely 04/24/2024 Assessment & Plan (04/24/2024 1:43 PM EST): - Sweats especially after showering or during normal activities like cleaning. - She feels cold quickly after sweating. - She will be tested for thyroid disease Dizziness 04/24/2024 Upper back pain 04/24/2024 Neck pain 04/24/2024 Chronic pain of both shoulders 04/24/2024 Poor posture 04/24/2024 Gastroenteritis 03/06/2024 Assessment & Plan (03/06/2024 2:54 PM EST): -likely viral gastroenteritis -no evidence of dehydration on exam -no evidence of acute abdomen -pepto bismol prn -supportive care with fluids -ER precautions discussed Constipation 09/18/2023 Assessment & Plan (09/18/2023 10:46 AM EDT): - encouraged fiber-rich diet - patient will take nutritional supplement - will prescribe fiber and senna Surveillance of intrauterine contraceptive devic e 09/11/2023 Assessment & Plan (09/11/2023 11:10 AM EDT): -ParaGard strings trimmed at patient's request -IUD may remain for up to 12y from insertion or be removed any time prior to that if desired Menorrhagia with regular cycle 09/29/2022 Resolved Problems Problem Noted Date Diagnosed Date Resolved Date Acute hemorrhagic cystitis 09/09/2024 0 10/01/2024 Assessment & Plan (09/09/2024 7:05 PM EDT): Increase p.o. water intake Bactrim x 3-5 days Follow-up urine culture and reconsult as needed Miscarriage 04/26/2023 04/26/2023 09/23/2024 2019 novel coronavirus detected 04/26/2023 09/18/2023 Assessment & Plan (04/26/2023 11:27 AM EST): Tylenol/Motrin for symptoms Quarantine x 5 days, mask for 5 days after that time Letter given to excuse from work To ER or return to clinic if high fevers, intolerant to PO, develops respiratory symptoms or chest pain Early stage of 11/24/2022 Encounters Date Type Department Care Team Description 10/01/2024 10:00 AM EDT Office Visit [facility] [address] [place] [phone] Rose Stroud DO Strep pharyngitis (Primary Dx); Cough in adult patient 10/01/2024 Travel 09/23/2024 10:00 AM EDT Office Visit [facility] [address] [place] [phone] Danette Albarran MD Routine general medical examination at a health care facility (Primary Dx); Dietary counseling; Exercise counseling; Class 1 obesity due to excess calories without serious comorbidity with body mass index (BMI) of 31.0 to 31.9 in adult; Neck pain; Chronic pain of both shoulders; Upper back pain; Macromastia; Encounter for immunization; Routine screening for STI (sexually transmitted infection) 09/23/2024 Travel 09/19/[address] [address] Danette Albarran MD Chart Prep 09/16/2024 Orders Only [address] [address] Manuel Blankenship CNM Checking of intrauterine device (Primary Dx); Pelvic pain 09/16/[address] [address] Danette Albarran MD Request Call back 09/12/2024 Patient Outreach [address] [address] Danette Albarran MD Pre-visit Planning (SDOH screening negative and Tobacco screening negative) 09/11/2024 1:45 PM EDT Office Visit [address] [address] Manuel Blankenship CNM Pelvic pain (Primary Dx); Checking of intrauterine device 09/11/2024 Travel 09/10/[address] [address] Danette Albarran MD chartprep 09/10/[address] [facility] [address] [address] Ria Phelps MD 09/09/2024 7:20 PM EDT Office Visit [facility] [address] [address] Ria Phepls MD Acute hemorrhagic cystitis (Primary Dx); Painful urination 08/07/2024 10:00 AM EDT Office Visit [facility] [address] [place] [phone] Mookie Cuenca MD Dizziness; Nausea 08/07/[address] [facility] [address] [address] Adenike Wills, KHUSHI Nurse Triage 07/21/2024 2:45 PM EDT Office Visit [address] [address] Whitney Urbano MD Allergic reaction, initial encounter (Primary Dx) 07/21/2024 Travel 07/21/[address] [facility] [address] [place], [place] [phone] Danette Albarran MD Nurse Triage from Last 3 Months Immunizations Immunization Administration Dates Next Due Hep B, adult 09/23/2024 Influenza Injectable Quadriv alant Preservative Free IIV4 MDCK 01/21/2021 Pfizer Covid-19 Vaccine 12+ 09/18/2023 Tdap 09/18/2023 Social History Tobacco Use Types Packs/Day Years Used Date Smoking Tobacco: Never Passive Smoke Exposure: Never Smokeless Tobacco: Never Tobacco Cessation:Counseling Given: Not Answered Alcohol Use Standard Drinks/Week Comments Not Currently 0 (1 standard drink = 0.6 oz pur e alcohol) socially Depression Answer Date Recorded Patient Health Questionnaire-9 Score 0 04/24/2024 Patient Health Questionnaire-9 Score 0 04/24/2024 Last PHQ-9: Questionnaire Data Not on file 1 06/25/2023 Housing Stability Answer Date Recorded What is your housing situation today? I have yovany rivera 09/12/[address] you li ve. Do you have problems with any of the following? None of the above 09/12/2024 Food Insecurity Answer Date Recorded Within the past 12 months, y ou worried that your food would run out before you got money to buy more: Never True 09/12/2024 Within the past 12 months,th e food you bought just didn't last and you didn't have enough money to get more: Never True Transportation Answer Date Recorded In the past 12 months, has l ack of transportation kept you from medical appts, meetings, work or from getting things needed for daily living? No 09/12/2024 Utilities Answer Date Recorded In the past 12 months, has t he electric, gas, oil or water company threatened to shut off services in your home? No 09/12/2024 Depression Answer Date Recorded Patient Health Questionnaire-2 Score 0 04/24/2024 Internet Access Answer Date Recorded Internet Access Q1 Yes 09/12/2024 Internet Access Q2 Not on file 09/12/2024 Comments No Intention Date Recorded No desire to become (finding) 0 09/11/2024 Sex and Gender Information Value Date Recorded Sex Assigned at Female 02/27/2022 10:38 AM EDT Legal Sex Female 10:38 AM EDT Gender Identity Female 02/27/2022 10:38 AM EDT Sexual Orientation Straight 02/27/2022 10 :38 AM EDT Last Filed Vital Signs Vital Sign Reading Time Taken Comments Blood Pressure 110/70 10/01/2024 10:07 AM EDT Pulse 63 10/01/2024 10:07 AM EDT Temperature 36.6 ??C (97.9 ??F) 10/01/2024 10:07 AM E DT Respiratory Rate 18 10/01/2024 10:07 AM EDT Oxygen Saturation 99% 10/01/2024 10:07 AM EDT Inhaled Oxygen Concentration - - Weight 78.5 kg (173 lb) 10/01/2024 10:07 AM EDT Height 161.5 cm (5' 3.58 ) 09/23/2024 10:11 AM E DT Body Mass Index 30.09 09/23/2024 10:11 AM EDT Plan of Treatment Health Maintenance Due Date Last Done Comments HPV Vaccines (1 - 3-dose series) 2013 COVID-19 Vaccine ( - season) 2023 09/18/2023, 08/05/2020, 07/15/2020 Hepatitis B Vaccines (2 of 3 - 19+ 3-dose series) 10/21/2024 09/23/2024 Influenza Vaccine (Season Ended) 2024 01/21/2021 Alcohol/Substance Use Screening 04/24/2025 04/24/2024 Depression Screening 04/24/2025 04/24/2024, 04/24/20 Family Planning (PISQ) 09/11/2025 09/11/2024 SDOH Screening 09/12/2025 09/12/2024 Disability Screening 09/23/2025 09/23/2024 Lipid Panel 09/24/2025 09/24/2020 Tobacco Screening 10/01/2025 10/01/2024 Pap Smear 09/10/2026 09/11/2023, 09/24/2020 DTaP/Tdap/Td Vaccines (2 - Td or Tdap) 09/17/2033 09/18/2023 Zoster Vaccines (1 of 2) 02/16/2048 RSV Patients and Patients Aged 60 years or older (1 - 1-dose 75+ series) 2073 HIV Screening Completed 09/27/2023, 06/29, 12/16/2020, Additional history exists Hepatitis C Screening Completed 09/27/2023 , 07/19/2021, 09/24/2020 HIB Vaccines Aged Out No longer eligi ble based on patient's age to complete this topic Hepatitis A Vaccines Aged Out No long er eligible based on patient's age to complete this topic IPV Vaccines Aged Out No longer eligi ble based on patient's age to complete this topic Meningococcal B Vaccine Aged Out No l onger eligible based on patient's age to complete this topic Meningococcal Vaccine Aged Out No antonieta vasiliy eligible based on patient's age to complete this topic Pneumococcal Vaccine: Pediatrics (0 to 5 Years) and At-Risk Patients (6 to 49) Years) Aged Out No longer eligible based on patient's age to complete this topic RSV under 20 months Aged Out No longe r eligible based on patient's age to complete this topic Rotavirus Vaccines Aged Out No longer eligible based on patient's age to complete this topic Procedures Procedure Name Priority Date/Time Associated Diagnosis Comments US PELVIS TRANSVAGINAL Urgent 10/06/2024 2:03 PM EDT Checking of intrauterine device Pelvic pain POCT INFLUENZA B (ID NOW RAPID MOLECULAR) Routine 10/01/2024 10:21 AM EDT Cough in adult patient POCT INFLUENZA A (ID NOW RAPID MOLECULAR) Routine 10/01/2024 10:21 AM EDT Cough in adult patient POCT RAPID COVID ANTIGEN Routine 10/01/2024 10:11 AM EDT Cough in adult patient POCT RAPID STREP A Routine 10/01/2024 10 :10 AM EDT Cough in adult patient POCT , URINE Routine 09/11/2024 2:16 PM EDT Pelvic pain AMB REFERRAL TO ALLERGY Routine 09/11/2024 Allergic reaction, initial encounter CANCELLED URINE Routine 09/09/2024 6:00 PM EDT Neck pain POCT URINALYSIS DIPSTICK Routine 09/09/2024 5:46 PM EDT Painful urination POCT , URINE Routine 08/07/2024 9:56 AM EDT Nausea HEPATITIS C AB W/REFL TO HCV RNA, QN, PCR Routine 09/27/2023 10:52 AM EDT Routine screening for STI (sexually transmitted infection) HIV 1/2 ANTIGEN/ANTIBODY, FOURTH GENERATION W/RFL Routine 09/27/2023 10:52 AM EDT Routine screening for STI (sexually transmitted infection) PAP SMEAR Routine 09/11/2023 9:55 AM EDT Cervical cancer screening LIPID PANEL, STANDARD Routine 09/24/2020 10:49 AM EDT from Last 3 Months or Most Recently Relevant to Health Maintenance Results * US Pelvis Transvaginal (10/06/2024 2:03 PM EDT) Anatomical Region Laterality Modality Pelvis Ultrasound 10/06/2024 2:03 PM EDT Narrative 10/06/2024 3:15 PM EDT ? [facility] ?[address] ?[place] [address] ? Ultrasound Report ? Signed ? Patient: Littlejohn,Yaneishka N ?MR#: [id number] ?? [id number] ? : 2000 ?Acct:[id number] ? Age/Sex: 24 / F ?ADM Date: 06/09/25 ? Loc: HO.US ? Attending Elton SUAREZM ? Ordering Physician: MANUEL BLANKENSHIP CNM ?? Date of Service: 10/06/24 ?? Procedure(s): US pelvic and transvaginal ?? Accession Number(s): [id number] ? cc: MANUEL BLANKENSHIP CNM; Danette Albarran MD ? EXAMINATION: ? US PELVIS ? CLINICAL INFORMATION: ? Left lower quadrant pain, ? COMPARISON: ?? December 25, 2022 ? TECHNIQUE: ?? Ultrasound of the pelvis is performed using both transabdominal and ?? transvaginal transducers along with Doppler. Transvaginal imaging is ?? performed due to inadequate visualization transabdominally. ? FINDINGS: ?? Uterus: ?? The uterus is anteflexed and measures 8.2 x 2.8 x 4.5 cm cm. ? The endometrial stripe is 3-4 mm. ? The uterus is smooth in contour and has normal myometrial echogenicity. ? Within the mid to lower uterine canal, there is a linear echogenic ?? device with ringdown artifact and posterior acoustic shadowing ?? consistent with an IUD. Inferior margin of the IUD is just above the ?? endocervical os. ?? There is a small amount of fluid within the uterine canal. ? Adnexa: ?? Both ovaries are visualized. There is normal color flow to the adnexa. ?? There is no ovarian torsion. ??There is no pelvic ascites or fluid ?? collection. ? Right ovary measures 3.1 x 2.1 x 2.8 cm. Normal follicles are ?? demonstrated. ? Left ovary measures 2.9 x 2.0 x 3.0 cm. Follicles are noted. ? US/US pelvic and transvaginal ?? IMPRESSION: ?? There is an IUD in place. It has migrated into the mid to lower uterine ?? canal. ? A small amount fluid is present in the uterine canal. This is a ?? nonspecific finding, endometritis cannot be ruled out. ? Electronically signed by: ??Patric Cobb MD ??10/06/2024 03:11 PM EDT ?? RP ? Dictated By: ?Patric Cobb MD ? Signed By: ?<Electronically signed by Patric Cobb MD in OV> ?10/06/24 1511 ? DD/ 1403 ? TD/TT: 10/06/24 1430 ? [employer]: ? Procedure Note Samson, Image - 10/06/[address] [address] Ultrasound Report Signed Patient: Omayra Littlejohn [facility]#: [id number] : 2000Acct:[id number] Age/Sex: 24 / FADM Date: 10/06/24 Loc: HO.US Attending Dr: Manuel Blankenship CNM Ordering Physician: MANUEL BLANKENSHIP CNM Date of Service: 10/06/24 Procedure(s): US pelvic and transvaginal Accession Number(s): [id number] cc: MANUEL BLANKENSHIP CNM; Danette Albarran MD EXAMINATION: US PELVIS CLINICAL INFORMATION: Left lower quadrant pain, COMPARISON: December 25, 2022 TECHNIQUE: Ultrasound of the pelvis is performed using both transabdominal and transvaginal transducers along with Doppler. Transvaginal imaging is performed due to inadequate visualization transabdominally. FINDINGS: Uterus: The uterus is anteflexed and measures 8.2 x 2.8 x 4.5 cm cm. The endometrial stripe is 3-4 mm. The uterus is smooth in contour and has normal myometrial echogenicity. Within the mid to lower uterine canal, there is a linear echogenic device with ringdown artifact and posterior acoustic shadowing consistent with an IUD. Inferior margin of the IUD is just above the endocervical os. There is a small amount of fluid within the uterine canal. Adnexa: Both ovaries are visualized. There is normal color flow to the adnexa. There is no ovarian torsion. There is no pelvic ascites or fluid collection. Right ovary measures 3.1 x 2.1 x 2.8 cm. Normal follicles are demonstrated. Left ovary measures 2.9 x 2.0 x 3.0 cm. Follicles are noted. US/US pelvic and transvaginal IMPRESSION: There is an IUD in place. It has migrated into the mid to lower uterine canal. A small amount fluid is present in the uterine canal. This is a nonspecific finding, endometritis cannot be ruled out. Electronically signed by: Patric Cobb MD 10/06/2024 03:11 PM EDT Dictated By: Patric Cobb MD Signed By: <Electronically signed by Patric Cobb MD in OV> 10/06/24 1511 DD/ 1403 TD/TT: 10/06/24 1430 [employer]: us Manuel Blankenship CNM IMG US PROCEDURES Edited Result - Final * Influenza B (ID NOW Rapid Molecular) (10/01/2024 10:21 AM EDT) Influenza B Negative Negative, Indeterminate [facility] Swab 10/01/2024 10:2 1 AM EDT Rose Stroud DO POINT OF CARE TEST ENTER/CRISTIN T ORDERABLES Final Result Performing Organization Address [facility]/ZIP Co de Phone Number [facility] [address] [place] [phone] * Influenza A (ID NOW Rapid Molecular) (10/01/2024 10:21 AM EDT) [facility] Influenza A Negative Negative, Indeterminate [facility] Swab 10/01/2024 10:2 1 AM EDT Rose Stroud DO POINT OF CARE TEST ENTER/CRISTIN T ORDERABLES Final Result Performing Organization Address City/[facility]/ZIP Co de Phone Number [facility] [address] [place] [phone] * POCT Rapid COVID Ag (10/01/2024 10:11 AM EDT) Pathologist [facility] Rapid COVID Ag Negative Swab 10/01/2024 10:1 1 AM EDT us Rose Stroud DO POINT OF CARE TEST ENTER/CRISTIN T ORDERABLES Final Result * (ABNORMAL) POCT rapid strep A manually resulted (10/01/2024 10:10 AM EDT) Pathologist [facility] Rapid Strep A Screen Positive( A) Negative, None Detected Swab 10/01/2024 10:1 0 AM EDT Rose Maximus BARON POINT OF CARE TEST ENTER/CRISTIN T ORDERABLES Final Result * POCT , urine manually resulted (09/11/2024 2:16 PM EDT) Only the most recent of2 resultswithin the time period is included. [facility] Preg Test, Ur Negative Negative, Indeterminate, None Detected, Invalid, Specimen unsatisfactory for evaluation, Weakly Positive, 2+ QC Media Lot # [id number] Lot# Expiration Date [id number] Urine 09/11/2024 2:16 PM EDT Manuel SUAREZ POINT OF CARE TEST ENTER/ EDIT ORDERABLES Final Result * Referral to Allergy (09/11/2024) us Whitney Hernandez MD OUTPATIENT REFERRAL O RDERABLES Final Result * Cancelled Urine (09/09/2024 6:00 PM EDT) [facility] Cancelled Urine SEE NOTE [facility] Comment:THE FOLLOWING TESTS WERE CANCELLED: UAMCCREASON: ONLY PAPPAS TUBE RECEIVED. NOTIFIED KISHORE AT [facility].09/10/2024 09/09/2024 6:00 PM EDT 09/10/2024 11:07 AM EDT Ria Phelps MD HISTORICAL/NON ORDERABLE LABS Final Result [facility] [address] [place] [phone] * (ABNORMAL) POCT Urinalysis (09/09/2024 5:46 PM EDT) [facility] Color, UA Light Yellow Clarity, UA Clear Glucose, UA Negative Bilirubin, UA Negative Ketones, UA Negative Spec Grav, UA 1.010 Blood, UA Positive(A) Negative, None Detected Comment:Moderate pH, UA 7.0 Protein, UA Negative Urobilinogen, UA 0.2 Leukocytes, UA Negative Negative, Rare, Trace Nitrite, UA Negative Negative, None Detected Appearance, UA clear Urine 09/09/2024 5:46 PM EDT us Ria Phelps MD POINT OF CARE TEST ENTER /EDIT ORDERABLES Final Result * Hepatitis C Antibody with Reflex to HCV, RNA, Quantitative, Real-Time PCR (09/27/2023 10:52 AM EDT) Hepatitis C Antibody Nonreactive Nonreactive [facility] Comment:Antibodies to HCV no t detected; does not exclude early acuteHCV infection. Blood Venous blood specimen / Unknown 09/27/2023 10:52 AM EDT 09/27/2023 1:08 PM EDT us Danette Albarran MD LAB BLOOD ORDERABLES Final Resul t [facility] [address] [place] [phone] * HIV-1/2 Antigen and Antibodies, Fourth Generation, with Reflexes (09/27/2023 10:52 AM EDT) HIV AB/AG Nonreactive Nonreactive [facility] Comment:HIV-1 p24 Ag and/or HIV-1/HIV-2 Ab not detected.A test result that is nonreactive does not exclude thepossibility of exposure to or infection with HIV-1 and/orHIV-2. Nonreactive results in this assay for individualswith prior exposure to HIV-1 and/or HIV-2 may be due toantigen and antibody levels that are below the limit ofdetection of this assay.[facility] HIV Ag/Ab Combo assay result andsupplemental assay results should be interpreted inconjunction with the patient's clinical presentation,history and other laboratory results. If the results areinconsistent with clinical evidence, additional testing issuggested to confirm the result. Blood Venous blood specimen / Unknown 09/27/2023 10:52 AM EDT 09/27/2023 1:08 PM EDT us Danette Albarran MD LAB BLOOD ORDERABLES Final Resul t [facility] [address] [place] [phone] * Pap Smear (09/11/2023 9:55 AM EDT) Swab 09/11/2023 9:55 AM EDT 09/13/2023 10:15 AM EDT Narrative [facility] - 10/01/2023 11:58 AM EDT ----- ------- Name: Omayra Littlejohn ?Age/Sex: 23/F ? : 2000 Unit#: [id number] ?? Attend Dr: MANUEL BLANKENSHIP Taty ?Re09/11/23 ?Status: DEP REF ? Location: HO.LNP ?Disch: ? ----- ------- SPEC : [id number] ? RECD: 09/13/23-5 ? STATUS: ??SOUT ? REQ NUM: [id number] ? TINA: 09/11/23 ? SUBM DR: MANUEL BLANKENSHIP CNM ? ENTERED: ??09/13/23 ?SP TYPE: Pap Smr ?OTHR : ? ORDERED: ??Pap Smear ? Interpretation ?? Satisfactory for evaluation. ?? Negative for intraepithelial lesion or malignancy. ?Clinical Information LMP:UNK Previous PAP test:UNK ? Material Received ?? ThinPrep-Vaginal/Cervical ----- ------- Signed (signature on file) Tabatha Cuellar Clint 10/01/23 1335 ? ----- ------- ? END OF REPORT ? us Manuel Yamilka [facility] ORDERABLES F inal Result [facility] [address] [place] [phone] * (ABNORMAL) LIPID PANEL, STANDARD (09/24/2020 10:49 AM EDT) Chol/HDLC Ratio 3.3 <5.0 (calc) [facility] Cholesterol, Total 147 <200 mg/dL [facility] HDL Cholesterol 45(L) > OR = 50 mg/dL [facility] LDL Cholesterol 87 mg/dL (calc) [facility] Comment: Reference range: <100 ?? Desirable range <100 mg/dL for primary prevention; ?? <70 mg/dL for patients with CHD or diabetic patients ?? with > or = 2 CHD risk factors. ?? LDL-C is now calculated using the Gustavo ?? calculation, which is a validated novel method providing ?? better accuracy than the Friedewald equation in the ?? estimation of LDL-C. ?? Mario WALTON et al. JASWANT. 2013;310(19): 4542-7660 ?? (http://education.AkaRx.com/faq/ODF519) Non-HDL Cholesterol 102 <130 mg/dL (calc) [facility] Comment: For patients with diabetes plus 1 major ASCVD risk ?? factor, treating to a non-HDL-C goal of <100 mg/dL ?? (LDL-C of <70 mg/dL) is considered a therapeutic ?? option. Triglycerides 63 <150 mg/dL [facility] 09/24/2020 10:4 9 AM EDT us Ashleigh Thomas [employer] LAB BLOOD ORDERABLES Final Resu lt [facility] [address] [place] [address], from Last 3 Months or Most Recently Relevant to Health Maintenance Insurance [facility] [address] [place] [id number] Care Teams Wire Straightening Machine Operator Relationship Specialty Start Date End Date Danette Albarran MD [address] [place] [address] [place] [address] PCP - General Family Medicine 02/02/23
== END 2024-10-06 14:02 | disposition home or self-care (01) ==
LOC: HO.US 14:01
PROVIDERS: PCP Family Medicine; Visit Provider Advanced Practice Midwife
DX: Z30.431 Encounter for routine checking of intrauterine contraceptive device (principal); R10.2 Pelvic and perineal pain
CPT/HCPCS: 76830; 76856

== ENCOUNTER → 2024-10-06 14:03 | Outpatient (BNV) | payer OTHER, SELFPAY | PROVIDERS: PCP Family Medicine; Visit Provider Radiology Diagnostic Radiology | DX: R10.32 Left lower quadrant pain (principal) | CPT/HCPCS: 76830; 76856 ==

== ENCOUNTER 2024-12-25 09:57 | Outpatient (REF) | payer OTHER, SELFPAY ==
--- OUTSIDE RECORDS SUMMARY | 2024-12-25 09:00 | XMS_ITS | Encounter Summary ---
Author Organization [employer] Address [address] [place] [address] Care Team Providers Care Junior Programmer Analyst Name Role Phone Danette Albarran MD Primary Care Provider [phone] Encounter Details Date Type Department Care Team (Late st Contact Info) Description 12/25/2024 9:00 AM EDT Office Visit [facility] [address] [place], [place] [phone] Danette Albarran MD [address] [place], [place] [phone] Pre-op evaluation (Primary Dx); Macromastia Social History Tobacco Use Types Packs/Day Years Used Date Smoking Tobacco: Never Passive Smoke Exposure: Never Smokeless Tobacco: Never Alcohol Use Standard Drinks/Week Comments Not Currently [...] Q2 Not on file 09/12/2024 Comments No Sex and Gender Information Value Date Recorded Sex Assigned at Female 02/27/2022 10:38 AM EDT Legal Sex Female 10:38 AM EDT Gender Identity Female 02/27/2022 10:38 AM EDT Sexual Orientation Straight 02/27/2022 10 :38 AM EDT documented as of this encounter Last Filed Vital Signs Vital Sign Reading Time Taken Comments Blood Pressure 100/80 12/25/2024 9:29 AM EDT Pulse 76 12/25/2024 9:29 AM EDT Temperature 36.2 C (97.1 F) 12/25/2024 9:29 AM EDT Respiratory Rate 15 12/25/2024 9:29 AM EDT Oxygen Saturation 98% 12/25/2024 9:29 AM EDT Inhaled Oxygen Concentration - - Weight 81.5 kg (179 lb 9.6 oz) 12/25/2024 9:29 A M EDT Height 160 cm (5' 3 ) 12/25/2024 9:29 AM EDT Body Mass Index 31.81 12/25/2024 9:29 AM EDT documented in this encounter Plan of Treatment Scheduled Orders Name Type Priority Associated Diagnoses Orde r Schedule CBC auto differential Lab Routine Pre-op evaluation Expected: 12/25/2024 (Approximate), Expires: 12/25/2025 Basic Metabolic Panel Lab Routine Pre-op evaluation Expected: 12/25/2024 (Approximate), Expires: 12/25/2025 hCG, Total, Quantitative Lab Routine Pre-op evaluation Expected: 12/25/2024 (Approximate), Expires: 12/25/2025 Prothrombin Time-INR Lab Routine Pre-op evaluation Expected: 12/25/2024, Expires: 12/25/2025 Partial Thromboplastin Time, Activated (APTT) Lab Routine Pre-op evaluation Expected: 12/25/2024, Expires: 12/25/2025 documented as of this encounter Visit Diagnoses Diagnosis Pre-op evaluation- Primary Macromastia Hypertrophy of breast documented in this encounter Additional Health Concerns Assessment Noted Time PHQ-9 Depression Total Score: 0 04/24/20 24 11:05 AM EST documented as of this encounter Care Teams Junior Programmer Analyst Relationship Specialty Start Date End Date Danette Albarran MD [address] [place] [phone] PCP - General Family Medicine 02/02/23 documented as of this encounter
--- OUTSIDE RECORDS SUMMARY | 2024-12-25 11:08 | XMS_ITS | Encounter Summary ---
Author Organization [employer] Address [address] 7[address] [place] [address] Care Team Providers Care Senior Sql Server Dba Name Role Phone Danette Albarran MD Primary Care Provider [phone] Encounter Details Date Type Department Care Team (Latest Contact Info) Description 12/25/2024 Travel Social History Tobacco Use Types Packs/Day Years [...] AM EDT documented as of this encounter Plan of Treatment Not on file documented as of this encounter Visit Diagnoses Not on filedocumented in this encounter Additional Health Concerns Assessment Noted Time PHQ-9 Depression Total Score: 0 04/24/20 24 11:05 AM EST documented as of this encounter Care Teams Senior Sql Server Dba Relationship Specialty Start Date End Date Danette Albarran MD [address] [place] [address] PCP - General Family Medicine 02/02/23 documented as of this encounter
--- OUTSIDE RECORDS SUMMARY | 2024-12-25 11:08 | XMS_ITS | Encounter Summary ---
Author Organization [employer] Address [address] [place] [address] Care Team Providers Care Clean Room Technician Name Role Phone Danette Albarran MD Primary Care Provider [phone] Reason for Visit * Reason Onset Date Comments Appointment Request 12/09/2024 Encounter Details Date Type Department Care Team ([facility] st Contact Info) Description 12/09/2024 Telephone [facility] [address] [place], [place] [phone] Danette Albarran MD [address] [place], [place] [phone] Appointment Request Social History Tobacco Use Types Packs/Day Years [...] AM EDT documented as of this encounter Miscellaneous Notes * Telephone Encounter - Carolina Prather CNM - 12/09/2024 1:57 PM EDT Noted, thanks. * Telephone Encounter - Shira Steele RN - 12/09/2024 1:48 PM EDT Telephone call to pt who reports she tried vaginal ring for 3 days, reports afterward had headache,nausea, no appetite, was in bed for a few days, then felt better after removing device. She said since then, she got her period 2x last month, and it came 5 days early this month. She would like sooner appt to discuss alternative control. Scheduled as below. Advised pt to call back sooner with questions or concerns, pt verbalized understanding. Future Appointments Date Time Provider Department Center 12/16/2024 11:30 AM Carolina Prather CNM [facility] 12/25/2024 9:00 AM Danette Albarran MD [facility] * Telephone Encounter - Ollie Pelletier - 12/09/2024 12:03 PM EDT Tc from pt requesting a sooner apt with [facility] due to symptom reported after taking medication prescribed, cycle change. Contact pt at [phone] documented in this encounter Plan of Treatment Not on file documented as of this encounter Visit Diagnoses Not on filedocumented in this encounter Additional Health Concerns Assessment Noted Time PHQ-9 Depression Total Score: 0 04/24/20 24 11:05 AM EST documented as of this encounter Care Teams Clean Room Technician Relationship Specialty Start Date End Date Danette Albarran MD [address] [place] [address] PCP - General Family Medicine 02/02/23 documented as of this encounter
--- OUTSIDE RECORDS SUMMARY | 2024-12-25 11:08 | XMS_ITS | Encounter Summary ---
Author Organization [employer] Address [address] 7t [place] [address] Care Team Providers Care Pe Electrical Engineer Name Role Phone Danette Albarran MD Primary Care Provider [phone] Reason for Referral * Consultation (Routine) - Closed Specialty Diagnoses / Procedures Referred By Segundo holloway Referred To Contact Physical Therapy Diagnoses Neck pain Chronic bilateral thoracic back pain Macromastia Danette Albarran MD [address] [place] [phone] Phone: tel: fax: [facility] Physical Therapy [address] [place] [place], [place] Phone: tel: fax: Referral ID Status Reason Start Date Expiration Date V isits Requested Visits Authorized [id number] Closed Specialty Services Required 10/05/2023 10/04/2024 1 1 Encounter Details Date Type Department Care Team (Late st Contact Info) Description 10/05/2023 Orders Only [facility] [address] [place] [phone] Danette Albarran MD [address] [place], [place] [phone] Neck pain (Primary Dx); Chronic bilateral thoracic back pain; Macromastia Social History Tobacco Use Types Packs/Day Years Used Date Smoking Tobacco: Never Passive Smoke Exposure: Never Smokeless Tobacco: Never Alcohol Use Standard Drinks/Week Comments Not Currently 0 (1 standard drink = 0.6 oz pur e alcohol) socially Depression Answer Date Recorded Patient Health Questionnaire-9 Score 1 09/29/2022 Housing Stability Answer Date Recorded What is your housing situation today? I have yovany rivera 02/26/[address] you li ve. Do you have problems with any of the following? None of the above 02/26/2023 Food Insecurity Answer Date Recorded Within the past 12 months, y ou worried that your food would run out before you got money to buy more: Never True 02/26/2023 Within the past 12 months,th e food you bought just didn't last and you didn't have enough money to get more: Never True Transportation Answer Date Recorded In the past 12 months, has l ack of transportation kept you from medical appts, meetings, work or from getting things needed for daily living? No 02/26/2023 Utilities Answer Date Recorded In the past 12 months, has t he electric, gas, oil or water company threatened to shut off services in your home? No 02/26/2023 Depression Answer Date Recorded Patient Health Questionnaire-2 Score 1 09/29/2022 Comments No Sex and Gender Information Value Date Recorded Sex Assigned at Female 02/27/2022 10:38 AM EDT Legal Sex Female 10:38 AM EDT Gender Identity Female 02/27/2022 10:38 AM EDT Sexual Orientation Straight 02/27/2022 10 :38 AM EDT documented as of this encounter Plan of Treatment Scheduled Referrals Name Type Priority Associated Diagnoses Orde r Schedule Referral to Physical Therapy Outpatient Referral Routine Neck pain Chronic bilateral thoracic back pain Macromastia Expected: 10/05/2023 (Approximate), Expires: 10/04/2024 documented as of this encounter Procedures Procedure Name Priority Date/Time Associated Diagnosis Comments CANCELLED URINE Routine 09/09/2024 6:00 PM EDT Neck pain STREP A NUCLEIC ACID Routine 12/21/2023 6:44 PM EDT Neck pain SARS COV2/INFLUENZA A/B AND RSV RNA QL NAAT Routine 12/21/2023 6:44 PM EDT Neck pain documented in this encounter Results * Cancelled Urine (09/09/2024 6:00 PM EDT) Cancelled Urine SEE NOTE [facility] Comment:THE FOLLOWING TESTS WERE CANCELLED: [facility]: ONLY PAPPAS TUBE RECEIVED. NOTIFIED KISHORE AT [facility].09/10/2024 09/09/2024 6:00 PM EDT 09/10/2024 11:07 AM EDT Ria Phelps MD HISTORICAL/NON ORDERABLE LABS Final Result Performing Organization Address [facility]/ZIP Co de Phone Number [facility] [address] [place] [address] [phone] * SARS-CoV-2 RNA, Influenza A/B, and RSV RNA, Ql NAAT (12/21/2023 6:44 PM EDT) [facility] Influenza A PCR NEGATIVE Negative [facility] Influenza B PCR NEGATIVE Negative [facility] Resp Syncy Virus RNA Qual PCR NEGATIVE Negative [facility] SARS COV2 PCR NEGATIVE Negative [facility] Comment:All test results mus t be correlated with clinical findings.Negative results do not preclude SARS-CoV2, influenza Avirus, influenza B virus and/or RSV infectionand should not be used as the sole basis for treatment orother patient management decisions. Negative results must becombined with clinical observations, patient history, andepidemiological information.This test has not been evaluated for monitoring treatment ofinfection.This test has been authorized by the FDA under an EmergencyUse Authorization (EUA) for use by authorized laboratories.Testing performed on the [employer] GeneXpert utilizingreal-time RT-PCR.All SARS CoV2 and positive influenza A/B results arereported to [facility]. 12/21/2023 6:44 PM EDT 12/21/2023 6:52 PM EDT us Generic External Data Provider LAB MICROBIOLOGY - GENERAL ORDERABLES Final Result Performing Organization Address [facility]/ZIP Co de Phone Number [facility] [address] [place] [address] [phone] * Strep A Nucleic Acid (12/21/2023 6:44 PM EDT) [employer] SERIAL# [id number] [facility] Strep A Nucleic Acid Negative Negative [facility] Comment:All test results mus t be correlated with clinical findings.This test has not been evaluated for monitoring treatment ofinfection.Additional follow-up testing using the culture method isrequired if the result is negative and clinical symptomspersist, or in the event of an acute rheumatic feveroutbreak. 12/21/2023 6:44 PM EDT 12/21/2023 6:52 PM EDT us Generic External Data Provider LAB MICROBIOLOGY - GENERAL ORDERABLES Final Result [facility] [address] [place] [address] [phone] documented in this encounter Visit Diagnoses Diagnosis Neck pain- Primary Cervicalgia Chronic bilateral thoracic back pain Macromastia Hypertrophy of breast documented in this encounter Additional Health Concerns Assessment Noted Time PHQ-9 Depression Total Score: 1 09/30/19 23 3:01 PM EDT documented as of this encounter Care Teams Pe Electrical Engineer Relationship Specialty Start Date End Date Danette Albarran MD [address] [place] [address] PCP - General Family Medicine 02/02/23 documented as of this encounter
--- OUTSIDE RECORDS SUMMARY | 2024-12-25 11:08 | XMS_ITS | Clinical Summary ---
Author Organization [facility] Address [address] [facility] [address] [place] [phone] Phone Care Team Providers Care Patient Day Coordinator Name Role Phone Danette Albarran MD Primary Care Provider [phone] Allergies Active Allergy Reactions Criticality Noted Date Comments Shellfish Containing Products Itching 2024 Medications No known medications Family History Medical History Relation Comments Anxiety disorder Father Relation Status Comments Father Alive Mother Alive Social History Tobacco Use Types Packs/Day Years Used Date Smoking Tobacco: Never Smokeless Tobacco: Never Tobacco Cessation:Counseling Given: Not Answered Alcohol Use Standard Drinks/Week Comments Yes 1 (1 standard drink = 0.6 oz pur e alcohol) rare Education Answer Date Recorded Are you interested in more education? Not on kaden e 04/29/2024 Are you concerned about learning? Not on file 04/29/2024 No 04/29/2024 No 04/29/2024 Digital Access Answer Date Recorded No 04/29/2024 No 04/29/2024 Reliable internet access at home? Not on file 04/29/2024 Device with a working camera? Not on file Comments Unknown Sex and Gender Information Value Date Recorded Sex Assigned at Not on file Legal Sex Female 11:09 AM EST Gender Identity Not on file Sexual Orientation Not on file Last Filed Vital Signs Vital Sign Reading Time Taken Comments Blood Pressure 121/71 09/01/2024 1:33 PM EDT Pulse 66 09/01/2024 1:33 PM EDT Temperature - - Respiratory Rate - - Oxygen Saturation - - Inhaled Oxygen Concentration - - Weight 76.7 kg (169 lb 3.2 oz) 09/01/2024 1:33 P M EDT Height 160.2 cm (5' 3.07 ) 09/01/2024 1:33 PM ED T Body Mass Index 29.9 09/01/2024 1:33 PM EDT Plan of Treatment Upcoming Encounters Date Type Department Care Team (Latest Contact Info) Description 01/01/2025 8:30 AM EDT Telemedicine - audio only [facility] Plastic Surgery [address] [place] [address] Caty Diggs PA-C [address] [place] [phone] 01/12/2025 8:00 AM EDT Pre-Admission Testing Pre Procedure Evaluation [address] [place] [phone] Riley Jacobo MD [address] [place] [phone] 01/13/2025 Procedure Pass OR Admitting Dept - Virtual Department [address] [place] [address] 01/13/2025 10:03 AM EDT Hospital Encounter OR Admitting Dept - Virtual Department [address] [place] [phone] Riley Jacobo MD [address] [place] [phone] 01/13/2025 10:03 AM EDT - 01/13/2025 1:52 PM EDT Surgery OR Admitting Dept - Virtual Department [address] [place] [address] Riley Jacobo MD [address] [place] [phone] REDUCTION BREAST 01/19/2025 11:30 AM EDT Office Visit [facility] Plastic Surgery [address] [place] [phone] Caty Diggs PA-C [address] [place] [phone] 01/29/2025 10:30 AM EDT Office Visit [facility] [address] [place] [address] Caty Diggs PA-C [address] [facility] [place] [address] [email or web address] Scheduled Procedures Name Priority Associated Diagnoses Date/Ti me REDUCTION BREAST breast hypertrophy 01/13/2025 10:03 AM EDT Health Maintenance Due Date Last Done Comments DEPRESSION SCREENING 2010 HPV VACCINES (1 - 3-dose series) 2013 HEPATITIS C SCREENING 02/16/2016 HIV ONE-TIME SCREENING (18-6 5 YEARS) 02/16/2016 COVID-19 VACCINE (2023-2 5 season) 2023 INFLUENZA VACCINE (#1) 2024 PAP SMEAR 09/10/2026 09/11/2023 Adult Td,Tdap Booster 09/17/2033 09/18/2023 SMOKING STATUS SCREENING (On ce After 26 Yrs) Completed 09/01/2024 HEPATITIS A VACCINES Aged Out No long er eligible based on patient's age to complete this topic HIB VACCINES Aged Out No longer eligi ble based on patient's age to complete this topic MENINGOCOCCAL VACCINES (ACWY) Aged Out No longer eligible based on patient's age to complete this topic MENINGOCOCCAL VACCINES (B) Aged Out N o longer eligible based on patient's age to complete this topic PNEUMOCOCCAL VACCINES (0-49 years) Aged Out No longer eligible based on patient's age to complete this topic Medical Devices Not on file Insurance [facility] [employer] [facility] [employer] [address] [place] [address] [place] [address] [facility] [facility] DIRECT [facility] [employer] DIRECT [address] [place], [place] [address] DIRECT Care Teams Patient Day Coordinator Relationship Specialty Start Date End Date Danette Albarran MD [address] [place] [phone] PCP - General Family Medicine 04/29/24 Additional Source Comments The information contained in this document represents components of the legal health record. It is not the complete legal health record.[facility]
--- OUTSIDE RECORDS SUMMARY | 2024-12-25 11:08 | XMS_ITS | Encounter Summary ---
Author Organization [employer] Address [address] [facility] 7t [place] [address] Care Team Providers Care Tamper Operator Name Role Phone Danette Albarran MD Primary Care Provider [phone] Reason for Visit * Reason Onset Date Comments Request Call back 09/16/2024 Encounter Details Date Type Department Care Team ([facility] st Contact Info) Description 09/16/2024 Telephone [facility] [address] [place], [place] [phone] Danette Albarran MD [address] [place], [place] [phone] Request Call back Social History Tobacco Use Types Packs/Day Years [...] Telephone Encounter - Carolina Prather CNM - 09/16/2024 4:00 PM EDT Perfect - thanks! * Telephone Encounter - Shira Steele RN - 09/16/2024 3:47 PM EDT Telephone call to pt who asked about status of referral for ultrasound to check IUD placement. She states that she had intermittent spotting for about 2 days (around 09/14/24-today) and after having had intercourse yesterday, states this is not typical for her. Confirmed no active spotting now. Advised her that US order placed and gave phone number to call [facility] Centralized Scheduling. Advised her to call back [facility] if no response in next week. Pt verbalized understanding, no further questions. * Telephone Encounter - Lisandra Duque - 09/16/2024 3:08 PM EDT Tc from pt regarding last visit from 09/11/24, requesting status on ultrasound appt Contact pt at [phone] documented in this encounter Plan of Treatment Not on file documented as of this encounter Visit Diagnoses Not on filedocumented in this encounter Additional Health Concerns Assessment Noted Time PHQ-9 Depression Total Score: 0 04/24/20 11:05 AM EST documented as of this encounter Care Teams Tamper Operator Relationship Specialty Start Date End Date Danette Albarran MD [address] [place] [address] PCP - General Family Medicine 02/02/23 documented as of this encounter
--- OUTSIDE RECORDS SUMMARY | 2024-12-25 11:08 | XMS_ITS | Clinical Summary ---
Author Organization [employer] Address [address] [facility] 7t [place] [address] Care Team Providers Care Industrial Hygienist Name Role Phone Danette Albarran MD Primary Care Provider [phone] Allergies Active Allergy Reactions Criticality Noted Date Comments Cattle Epithelium 10/23/2024 Dust Mite Extract 10/23/2024 Shellfish Allergy Hives,Itching 09/29/2022 Medications Fiber 500 MG capsule Take 500 mg [...] needed for itching. 30 tablet 025 Active ibuprofen 600 MG tablet Take 1 tablet (600 mg) by mouth every 6 (six) hours if needed for mild pain or fever. 40 tablet 1 025 Active Drospirenone (Slynd) 4 MG tablet Take 1 tablet by mouth Once per day. 28 tablet 11 025 Active Segesterone-Ethi nyl Estradiol (Annovera) 0.15-0.013 MG/24HR ring Insert 1 Ring into the vagina See administration instructions. Leave in for 3 weeks, remove for 7 days then repeat cycle. Rinse in cool water after removal. Store in its container. 1 each 025 2024 Discontinued levonorgestrel (Plan B) 1.5 MG tablet Take 1 tablet (1.5 mg) by mouth 1 (one) time for 1 dose. 1 tablet 025 2024 Active Problems Problem Noted [...] if needed I will refer patient to employee development specialist Sweating profusely 04/24/2024 Assessment & Plan [...] and reconsult as needed Miscarriage 04/26/2023 04/26/2023 09/23/20242018 novel coronavirus detected 04/26/2023 09/18/2023 Assessment & Plan (04/26/2023 11:27 AM EST): Tylenol/Motrin for symptoms Quarantine x 5 days, mask for 5 days after that time Letter given to excuse from work To ER or return to clinic if high fevers, intolerant to PO, develops respiratory symptoms or chest pain Early stage of 11/24/2022 Encounters Date Type Department Care Team Description 12/25/2024 9:00 AM EDT Office Visit [facility] [address] [place] [phone] Danette Albarran MD Pre-op evaluation (Primary Dx); Macromastia 12/25/2024 Travel 12/16/2024 11:30 AM EDT Office Visit [facility] [address] [place] [address] Manuel Blankenship CNM Encounter for initial prescription of contraceptive pills (Primary Dx) 12/16/2024 Travel 12/09/2024 Telephone [facility] [address] [place] [address] Danette Albarran MD Appointment Request 11/13/2024 Telephone [facility] [address] [place] [address] Danette Albarran MD pre-op request 10/23/2024 1:15 PM EDT Office Visit [facility] [address] [place] [address] Manuel Blankenship CNM Encounter for IUD removal (Primary Dx); Need for prophylactic vaccination and inoculation against viral hepatitis; Family planning counseling; Encounter for immunization 10/23/2024 Travel 10/22/2024 Telephone [facility] [address] [place] [address] Manuel Blankenship CNM chart prep 10/15/[address] [address] Danette Albarran MD Nurse Triage 10/07/2024 Results Follow-Up [facility] [address] [place] [phone] Manuel Blankenship CNM US Pelvis Transvaginal 10/01/2024 10:00 AM EDT Office Visit [facility] [address] [place] [address] Rose Stroud DO Strep pharyngitis (Primary Dx); Cough in adult patient 10/01/2024 Travel from Last 3 Months Immunizations Immunization Administration Dates Next Due Hep B, adult 10/23/2024,09/23/2024 Influenza Injectable Quadriv alant Preservative Free IIV4 [...] Recorded No desire to become (finding) 0 12/16/2024 Sex and Gender Information Value Date Recorded [...] Mass Index 31.81 12/25/2024 9:29 AM EDT Plan of Treatment Health Maintenance Due Date Last Done Comments HPV Vaccines (1 - 3-dose series) 2013 COVID-19 Vaccine (2023-25 season) 2023 09/18/2023, 08/05/2020, 07/15/2020 Influenza Vaccine (#1) 2024 01/21/2021 Hepatitis B Vaccines (3 of 3 - 19+ 3-dose series) 03/26/2025 10/23/2024, 09/23/2024 Alcohol/Substance Use Screening 04/24/2025 04/24/2024 Depression Screening 04/24/2025 04/24/2024, 04/24/20 SDOH Screening 09/12/2025 09/12/2024 Disability Screening 09/23/2025 09/23/2024 Lipid Panel 09/24/2025 09/24/2020 Family Planning (PISQ) 12/16/2025 12/16/2024 Tobacco Screening 12/16/2025 12/16/2024 Pap Smear 09/10/2026 09/11/2023, 09/24/2020 DTaP/Tdap/Td Vaccines [...] Years) and At-Risk Patients (6 to 49) Years Aged Out No longer eligible based on patient's age to complete this topic RSV under 20 months Aged Out No longe r eligible based on patient's age to complete this topic Rotavirus Vaccines Aged Out No longer eligible based on patient's age to complete this topic Procedures Procedure Name Priority Date/Time Associated Diagnosis Comments GA REMOVAL INTRAUTERINE DEVICE IUD Routine 10/23/2024 1:15 PM EDT Encounter for immunization US PELVIS TRANSVAGINAL Urgent 10/06/2024 2:03 PM [...] :10 AM EDT Cough in adult patient HEPATITIS C AB W/REFL TO HCV RNA, [...] Recently Relevant to Health Maintenance Results * GA REMOVAL INTRAUTERINE DEVICE IUD (10/23/2024 1:15 PM EDT) Manuel Miller CNM - 10/23/2024 1:15 PM EDT Manuel Blankenship CNM 10/23/2024 1:49 PM IUD Management Performed by: Manuel Blankenship CNM Authorized by: Manuel Blankenship CNM Procedure: IUD removal Consent obtained by patient, parent, or legal power of seam closer - including discussion of procedure risks and benefits, patient questions answered, and patient education provided: yes Reason for removal: patient request and malposition Strings visualized: yes Tenaculum applied to cervix: no Cervix manually dilated: no IUD grasped by forceps: yes Performed with ultrasound guidance: no IUD removed: yes Date/Time of Removal: 10/23/2024 1:30 PM Removed without complications: yes IUD intact: yes us Manuel Blankenship CNM IN CLINIC/BEDSIDE ORDERAB LES Final Result * US Pelvis Transvaginal (10/06/2024 2:03 PM EDT) Anatomical Region Laterality Modality Pelvis Ultrasound 10/06/2024 2:03 PM EDT Narrative 10/06/2024 3:15 PM EDT [place] [address] Ultrasound Report Signed Patient: Omayra Littlejohn MR#: [id number] : 2000 Acct:[id number] Age/Sex: 24 / F ADM Date: 10/06/24 Loc: HO.US Attending Dr: Manuel Blankenship CNM Ordering Physician: MANUEL BLANKENSHIP CNM Date of Service: 10/06/24 Procedure(s): US pelvic and transvaginal Accession Number(s): [id number] cc: MANUEL BLANKENSHIP CNM; Danette Albarran MD [...] 10/06/24 1511 DD/ 1403 TD/TT: 10/06/24 1430 Career Development Associate: Procedure Note Donotuseinterpreter, Image - 10/06/2024 [place] [address] Ultrasound Report Signed Patient: Omayra Littlejohn [facility]#: [id number] : 2000Acct:[id number] Age/Sex: 24 / FADM Date: 10/06/24 Loc: .US Attending Dr: Manuel Blankenship CNM Ordering Physician: MANUEL BLANKENSHIP CNM Date of Service: 10/06/24 Procedure(s): US pelvic and transvaginal Accession Number(s): [id number] cc: MANUEL BLANKENSHIP CNM; Danette Albarran MD [...] Patric Cobb MD 10/06/2024 03:11 PM EDT RP Dictated By: Patric Cobb MD Signed By: <Electronically signed by Patric Cobb MD in OV> 10/06/24 1511 DD/ 1403 TD/TT: 10/06/24 1430 Career Development Associate: Manuel Blankenship [facility] IM US PROCEDURES Edited Result - Final * Influenza B (ID NOW Rapid Molecular) (10/01/2024 10:21 AM EDT) Influenza B Negative Negative, Indeterminate [facility] Swab 10/01/2024 10:2 1 AM EDT Rose Stroud DO POINT OF CARE TEST ENTER/CRISTIN T ORDERABLES Final Result [facility] [address] [place] [phone] * Influenza A (ID NOW Rapid Molecular) (10/01/2024 10:21 AM EDT) [facility] Influenza A Negative Negative, Indeterminate [facility] Swab 10/01/2024 10:2 1 AM EDT Rose Stroud DO POINT OF CARE TEST ENTER/CRISTIN T ORDERABLES Final Result Performing Organization Address [facility]/ZIP Co de Phone Number [facility] [address] [place] [phone] * POCT Rapid COVID Ag (10/01/2024 10:11 AM EDT) [facility] Rapid COVID Ag Negative Swab 10/01/2024 10:1 1 AM EDT Rose Stroud DO POINT OF CARE TEST ENTER/CRISTIN T ORDERABLES Final Result * (ABNORMAL) POCT rapid strep A manually resulted (10/01/2024 10:10 AM EDT) [facility] Rapid Strep A Screen Positive( A) Negative, None Detected Swab 10/01/2024 10:1 0 AM EDT Rose Stroud DO POINT OF CARE TEST ENTER/CRISTIN T ORDERABLES Final Result * Hepatitis C Antibody with Reflex to HCV, RNA, Quantitative, Real-Time PCR (09/27/2023 10:52 AM EDT) [facility] Hepatitis C Antibody Nonreactive Nonreactive [facility] Comment:Antibodies to HCV no t detected; does not exclude early acuteHCV infection. Blood Venous blood specimen / Unknown 09/27/2023 10:52 AM EDT 09/27/2023 1:08 PM EDT Danette Albarran MD LAB BLOOD ORDERABLES Final Resul t Performing Organization Address City/[facility]/ZIP Co de Phone Number [facility] [address] [place] [phone] [phone] * HIV-1/2 Antigen and Antibodies, Fourth Generation, with Reflexes (09/27/2023 10:52 AM EDT) HIV AB/AG Nonreactive Nonreactive [facility] Comment:HIV-1 p24 Ag and/or HIV-1/HIV-2 Ab not detected.A test result that is nonreactive does not exclude thepossibility of exposure to or infection with HIV-1 and/orHIV-2. Nonreactive results in this assay for individualswith prior exposure to HIV-1 and/or HIV-2 may be due toantigen and antibody levels that are below the limit ofdetection of this assay.The PinchPoint HIV Ag/Ab Combo assay result andsupplemental assay results should be interpreted inconjunction with the patient's clinical presentation,history and other laboratory results. If the results areinconsistent with clinical evidence, additional testing issuggested to confirm the result. Blood Venous blood specimen / Unknown 09/27/2023 10:52 AM EDT 09/27/2023 1:08 PM EDT us Danette Albarran MD LAB BLOOD ORDERABLES Final Resul t [facility] [address] [place] [address] [phone] * Pap Smear (09/11/2023 9:55 AM EDT) Swab 09/11/2023 9:55 AM EDT 09/13/2023 10:15 AM EDT Narrative [facility] - 10/01/2023 11:58 AM EDT ----- ------- Name: Omayra Littlejohn Age/Sex: 23/F : 2000 Unit#: [id number] Attend Dr: MANUEL BLANKENSHIP CNM Re09/11/23 Status: DEP REF Location: [facility] Disch: ----- ------- SPEC : [id number] RECD: 09/13/23-1015 STATUS: SHAWNA DELGADO NUM: [id number] TINA: 09/11/23-[address] [facility] [address]: MANUEL BLANKENSHIP ENTERED: 09/13/23-1325 SP TYPE: Pap Smr [facility] DR: ORDERED: Pap Smear Interpretation Satisfactory for evaluation. Negative for intraepithelial lesion or malignancy. Clinical Information LMP:UNK Previous PAP test:UNK Material Received ThinPrep-Vaginal/Cervical ----- ------- Signed (signature on file) Tabatha Jaramillo 10/01/23 1158 ----- ------- END OF REPORT us Manuel SUAREZM LAB CYTOLOGY ORDERABLES F inal Result Performing Organization Address [facility]/ZIP Co de Phone Number [facility] [address] [place], [place] [phone] * (ABNORMAL) LIPID PANEL, STANDARD (09/24/2020 10:49 AM EDT) Chol/HDLC Ratio 3.3 <5.0 (calc) [facility] Cholesterol, Total 147 <200 mg/dL [facility] HDL Cholesterol 45(L) > OR = 50 mg/dL [facility] LDL Cholesterol 87 mg/dL (calc) [facility] Comment: Reference range: <100 Desirable range <100 mg/dL for primary prevention; <70 mg/dL for patients with CHD or diabetic patients with > or = 2 CHD risk factors. LDL-C is now calculated using the Mario-Yousif calculation, which is a validated novel method providing better accuracy than the Friedewald equation in the estimation of LDL-C. Mario SS et al. JASWANT. 2013;310(19): 3233-0178 (http://education.GigsWiz.com/faq/MGA612) Non-HDL Cholesterol 102 <130 mg/dL (calc) [facility] Comment: For patients with diabetes plus 1 major ASCVD risk factor, treating to a non-HDL-C goal of <100 mg/dL (LDL-C of <70 mg/dL) is considered a therapeutic option. Triglycerides 63 <150 mg/dL [facility] 09/24/2020 10:4 9 AM EDT us Ashleigh Thomas NP LAB BLOOD ORDERABLES Final Resu lt Performing Organization Address City/[facility]/ZIP Co de Phone Number [facility] [address] from Last 3 Months or Most Recently Relevant to Health Maintenance Insurance [place] [id number] Care Teams Industrial Hygienist Relationship Specialty Start Date End Date Danette Albarran MD [address] [place] [address] PCP - General Family Medicine 02/02/23
[2024-12-25 11:27] LABS: MANUAL DIFF FLAG NO
[2024-12-25 11:36] LABS: INTERNATIONAL NORM RATIO 1.0 (0.9-1.1); Prothrombin Time 11.8 SEC (10.9-12.4)
[2024-12-25 11:38] LABS: Partial Thromboplastin Time 31.4 SEC (26.7-34.1)
[2024-12-25 11:42] LABS: Hematocrit 40.3 % (37.0-47.0); Hemoglobin 13.1 g/dl (12.0-16.0); Imm Gran Abs Auto 0.03 X10*3/uL (0.00-0.03); Imm Gran Pct Auto 0.4 % (0.0-0.4); Lymphocytes Absolute Auto 2.0 X10*3/uL (1.2-4.9); Mean Corpuscular HGB Conc 32.5 g/dl (31.0-35.0); Mean Corpuscular Hemoglobin 27.8 pg (27.0-33.0); Mean Corpuscular Volume 85.6 fL (80.0-98.0); NRBC Abs Auto 0.000 X10*3/uL (0.0-0.012); NRBC Pct Auto 0.0 /100WBC (0.0-0.2); Platelet Count 329 X10*3/uL (160-400); Red Blood Count 4.71 X10*6/uL (4.20-5.50); White Blood Count 8.5 X10*3/uL (4.8-10.8)
[2024-12-25 12:27] LABS: Anion Gap 10 (12-20)
[2024-12-25 12:30] LABS: Blood Urea Nitrogen 15 mg/dL (9-16); Calcium 9.2 mg/dL (8.4-10.2); Carbon Dioxide 27 mmol/L (22-29); Chloride 102 mmol/L (96-108); Estimated Glomerular Filt Rate > 60; Potassium 4.1 mmol/L (3.3-5.1); Sodium 135 mmol/L (135-145)
[2024-12-25 12:37] LABS: Syphilis Screen Nonreactive (Nonreactive)
[2024-12-25 12:38] LABS: HBsAGNum1 0.50 S/CO (0.00-0.99); HIV Num 1 0.05 S/CO (0.00-0.99); Hepatitis B Surface Antigen Negative (Negative); ~HepC Num1 0.17 S/CO (0.00-0.79); ~Hepatitis C Antibody Nonreactive (Nonreactive)
== END 2024-12-25 09:58 | disposition home or self-care (01) ==
LOC: HO.HHCL 09:57
PROVIDERS: PCP Family Medicine; Visit Provider Family Medicine
DX: Z01.818 Encounter for other preprocedural examination (principal); Z11.3 Encounter for screening for infections with a predominantly sexual mode of transmission; Z11.4 Encounter for screening for human immunodeficiency virus [HIV]; Z01.84 Encounter for antibody response examination; Z11.8 Encounter for screening for other infectious and parasitic diseases; Z11.59 Encounter for screening for other viral diseases
CPT/HCPCS: 36415; 80048; 84702; 85025; 85610; 85730; 86780; 86803; 87340; 87389

== ENCOUNTER 2025-04-01 11:49 | Outpatient (REF) | payer OTHER, SELFPAY ==
--- OUTSIDE RECORDS SUMMARY | 2025-04-01 10:15 | XMS_ITS | Encounter Summary ---
Author Organization [employer] Address [address] [facility] [address] [address] 7[address] [place] [address] Care Team Providers Care Billboard Poster Helper Name Role Phone Danette Albarran MD Primary Care Provider Encounter Details Date Type Department Care Team (Late st Contact Info) Description 04/01/2025 10:15 AM EST Office Visit [facility] [address] [place] [address] Caty Li, PACKING HOUSE SUPERVISOR [address] [place], [place] [phone] Abdominal discomfort (Primary Dx); Diarrhea, unspecified type Social History Tobacco Use Types Packs/Day Years [...] Reading Time Taken Comments Blood Pressure 110/70 04/01/2025 10:38 AM EST Pulse 80 04/01/2025 10:38 AM EST Temperature 36 C (96.8 F) 04/01/2025 10:38 AM EST Respiratory Rate 21 04/01/2025 10:38 AM EST Oxygen Saturation 100% 04/01/2025 10:38 AM EST Inhaled Oxygen Concentration - - Weight 84.4 kg (186 lb) 04/01/2025 10:38 AM EST Height 157.5 cm (5' 2 ) 04/01/2025 10:38 AM EST Body Mass Index 34.02 04/01/2025 10:38 AM EST documented in this encounter Plan of Treatment Upcoming Encounters Date Type Department Care Team (Late st Contact Info) Description 04/29/2025 10:00 AM EST Office Visit [facility] [address] [place] [address] Caty Li, MARCELO [address] [place] [address] Scheduled Orders Name Type Priority Associated Diagnoses Orde r Schedule Helicobacter pylori Antigen, EIA, Stool Lab Routine Abdominal discomfort Expected: 04/01/2025 (Approximate), Expires: 04/01/2026 Basic Metabolic Panel Lab Routine Diarrhea, unspecified type Expected: 04/01/2025 (Approximate), Expires: 04/01/2026 documented as of this encounter Visit Diagnoses Diagnosis Abdominal discomfort- Primary Abdominal pain, unspecified site Diarrhea, unspecified type documented in this encounter Additional Health Concerns Assessment Noted Time PHQ-9 Depression Total Score: 0 04/24/20 24 11:05 AM EST documented as of this encounter Care Teams Billboard Poster Helper Relationship Specialty Start Date End Date Danette Albarran MD [address] [place] [address] PCP - General Family Medicine 02/02/23 documented as of this encounter
--- OUTSIDE RECORDS SUMMARY | 2025-04-01 14:15 | XMS_ITS | Encounter Summary ---
Author Organization [facility] Address [address] [facility] [address] [place] [phone] Phone Care Team Providers Care Knife Edger Name Role Phone Danette Albarran MD Primary Care Provider [phone] Encounter Details Date Type Department Care Team (Late st Contact Info) Description 01/13/2025 Procedure Pass OR Admitting Dept - Virtual Department [address] [place] [address] Social History Tobacco Use Types Packs/Day Years Used Date Smoking Tobacco: Never Smokeless Tobacco: Never Alcohol Use Standard Drinks/Week Comments Yes 1 [...] with a working camera? Not on file Intimate Partner Violence Answer Date R ecorded Are you denied basic needs s uch as food, clothing, or medical care? No 01/13/2025 In the past 12 months have y ou been in a relationship with a person who hurts, threatens, or tries to control you? No 01/13/2025 Are you denied basic needs s uch as food, clothing, or medical care? No 01/13/2025 In the past 12 months have y ou been in a relationship with a person who hurts, threatens, or tries to control you? No 01/13/2025 Comments No Sex and Gender Information Value Date Recorded Sex Assigned at Female 01/25/2025 3:29 PM EDT Legal Sex Female 11:09 AM EST Gender Identity Female 01/25/2025 3:29 PM EDT Sexual Orientation Not on file documented as of this encounter Plan of Treatment Upcoming Encounters Date Type Department Care Team (Late st Contact Info) Description 04/13/2025 4:30 PM EST Office Visit [facility] Surgery [address] [place] [phone] Caty Diggs PA-C [address] [place] [address] [email or web address] documented as of this encounter Visit Diagnoses Not on filedocumented in this encounter Care Teams Knife Edger Relationship Specialty Start Date End Date Danette Albarran MD [address] [place] [address] PCP - General Family Medicine 04/29/24 documented as of this encounter Additional Source Comments The information contained in this document represents components of the legal health record. It is not the complete legal health record.[facility]
--- OUTSIDE RECORDS SUMMARY | 2025-04-01 14:15 | XMS_ITS | Encounter Summary ---
Author Organization [employer] Address [address] [facility] 7t [place] [address] Care Team Providers Care Hand Bindery Assembly Worker Name Role Phone Danette Albarran MD Primary Care Provider [phone] Encounter Details Date Type Department Care Team ([facility] st Contact Info) Description 01/16/2025 Orders Only [facility] [address] [place], [place] [phone] Provider, MD Marlo Social History Tobacco Use Types Packs/Day Years [...] is your housing situation today? I have yovanyluis rivera 09/12/[address] you [...] Description 04/29/2025 10:00 AM EST Office Visit [facility] [address] [place] [address] Caty Li FNP [address] [place] [address] documented as of this encounter Procedures Procedure Name Priority Date/Time Associated Diagnosis Comments SURGICAL PATHOLOGY Routine 01/13/2025 11:52 AM EDT documented in this encounter Results * Surgical Pathology (01/13/2025 11:52 AM EDT) Historical Provider LAB PATHOLOGY ORDERABLES Final Result documented in this encounter Visit Diagnoses Not on filedocumented in this encounter Additional Health Concerns Assessment Noted Time PHQ-9 Depression Total Score: 0 04/24/20 24 11:05 AM EST documented as of this encounter Care Teams Hand Bindery Assembly Worker Relationship Specialty Start Date End Date Danette Albarran MD [address] [place] [address] PCP - General Family Medicine 02/02/23 documented as of this encounter
--- OUTSIDE RECORDS SUMMARY | 2025-04-01 14:16 | XMS_ITS | Encounter Summary ---
Author Organization [employer] Address [address] [facility] [address] [place] [address] Care Team Providers Care Garbage Pick Up Worker Name Role Phone Danette Albarran MD Primary Care Provider [phone] Reason for Visit * Reason Onset Date Comments Appointment Request 12/09/2024 Encounter Details Date Type Department Care Team ([facility] st Contact Info) Description 12/09/2024 Telephone [facility] [address] [place], [place] [phone] Danette Albarran MD [address] [place], [place] [phone] Appointment Request Social History Tobacco Use Types [...] 12/16/2024 11:30 AM Carolina Prather CNM MEDICINE [facility] 12/25/2024 9:00 AM Danette Albarran MD MEDICINE [facility] * Telephone Encounter - Ollie Pelletier - 12/09/2024 12:03 PM EDT Tc from pt requesting a sooner apt with [facility] due to symptom reported after taking medication prescribed, cycle change. Contact pt at [phone] documented in this encounter Plan of Treatment Upcoming Encounters Date Type Department Care Team ([facility] st Contact Info) Description 04/29/2025 10:00 AM EST Office Visit [facility] [address] [place] [address] Caty Li FNP [address] [place] [address] documented as of this encounter Visit Diagnoses Not on filedocumented in this encounter Additional Health Concerns Assessment Noted Time PHQ-9 Depression Total Score: 0 04/24/20 24 11:05 AM EST documented as of this encounter Care Teams Garbage Pick Up Worker Relationship Specialty Start Date End Date Danette Albarran MD [address] [place] [address] PCP - General Family Medicine 02/02/23 documented as of this encounter
--- OUTSIDE RECORDS SUMMARY | 2025-04-01 14:16 | XMS_ITS | Encounter Summary ---
Author Organization [employer] Address [address] [facility] 7t [place] [address] Care Team Providers Care E Commerce Merchant Name Role Phone Danette Albarran MD Primary Care Provider [phone] Reason for Referral * Consultation (Routine) - Closed Specialty Diagnoses / Procedures Referred By Segundo holloway Referred To Contact Physical Therapy Diagnoses Neck pain Chronic bilateral thoracic back pain Macromastia Danette Albarran MD [address] [place] [address] Phone: tel: fax: [facility] Physical Therapy [address] [place], [place] Phone: tel: fax: Referral ID Status Reason Start Date Expiration Date V isits Requested Visits Authorized [id number] Closed Specialty Services Required 10/05/2023 10/04/2024 1 1 Encounter Details Date Type Department Care Team (Late st Contact Info) Description 10/05/2023 Orders Only [facility] MEDICINE [address] [place] [address] [phone] Danette Albarran MD [address] [place], [place] [phone] Neck pain (Primary Dx); Chronic bilateral thoracic [...] Description 04/29/2025 10:00 AM EST Office Visit [facility] MEDICINE [address] [place] [address] Caty Li, MARCELO [address] [place] [address] Scheduled Referrals Name Type Priority Associated Diagnoses [...] 6:00 PM EDT) Cancelled Urine SEE NOTE [facility] Comment:THE FOLLOWING TESTS WERE CANCELLED: UACREASON: ONLY PAPPAS TUBE RECEIVED. NOTIFIED KISHORE AT [facility].09/10/2024 09/09/2024 6:00 PM EDT 09/10/2024 11:07 AM EDT Ria Phelps MD HISTORICAL/NON ORDERABLE LABS Final Result [facility] [address] [place] [phone] * SARS-CoV-2 RNA, Influenza A/B, and RSV RNA, Ql NAAT (12/21/2023 6:44 PM EDT) Influenza A PCR NEGATIVE Negative [facility] Influenza B PCR NEGATIVE Negative [facility] Resp Syncy Virus RNA Qual PCR NEGATIVE Negative [facility] SARS COV2 PCR NEGATIVE Negative [facility] Comment:All test results mus t [...] use by authorized laboratories.Testing performed on the [employer] GeneXpert utilizingreal-time RT-PCR.All SARS CoV2 and positive influenza A/B results arereported to [facility]. 12/21/2023 6:44 PM EDT 12/21/2023 6:52 PM EDT us Generic External Data Provider LAB MICROBIOLOGY - GENERAL ORDERABLES Final Result Performing Organization Address [facility] Co de Phone Number [facility] [address] [place] [phone] * Strep A Nucleic Acid (12/21/2023 6:44 PM EDT) IDNOW SERIAL# [id number] [facility] Strep A Nucleic Acid Negative Negative [facility] Comment:All test results mus t be correlated with clinical findings.This test has not been evaluated for monitoring treatment ofinfection.Additional follow-up testing using the culture method isrequired if the result is negative and clinical symptomspersist, or in the event of an acute rheumatic feveroutbreak. 12/21/2023 6:44 PM EDT 12/21/2023 6:52 PM EDT Generic External Data Provider LAB MICROBIOLOGY - GENERAL ORDERABLES Final Result Performing Organization Address [facility] de Phone Number [facility] [address] [place] [phone] documented in this encounter Visit Diagnoses Diagnosis Neck pain- Primary Cervicalgia Chronic bilateral thoracic back pain Macromastia Hypertrophy of breast documented in this encounter Additional Health Concerns Assessment Noted Time PHQ-9 Depression Total Score: 1 09/30/19 23 3:01 PM EDT documented as of this encounter Care Teams E Commerce Merchant Relationship Specialty Start Date End Date Danette Albarran MD [address] [place] [address] PCP - General Family Medicine 02/02/23 documented as of this encounter
--- OUTSIDE RECORDS SUMMARY | 2025-04-01 14:16 | XMS_ITS | Clinical Summary ---
Author Organization [facility] Address [address] [facility] [address] [place] [phone] Phone Care Team Providers Care Mechanical Cad Drafter Name Role Phone Danette Albarran MD Primary Care Provider [phone] Allergies Active Allergy Reactions Criticality Noted Date Comments Cefotaxime 01/13/2025 House Dust Mite 01/01/2025 Other 01/01/2025 Cattle Shellfish Containing Products Itching 2024 Medications SLYND 4 mg (28) tablet Take 1 tablet by mouth every morning. Active cetirizine (ZYRTEC) 10 MG tablet Take 10 mg by mouth daily. Active oxyCODONE-aceta minophen (PERCOCET) 5-325 mg per tablet Take 1-2 tablets by mouth every 6 (six) hours as needed for pain (specific location in comments). Partial fill ok 12 tablet Active Additional Information Patient not taking.Reported on 03/09/2025 progesterone (PROMETRIUM) 100 mg capsule Take 100 mg by mouth daily. Active Active Problems Problem Noted Date Diagnosed Date Hypertrophy of breast 01/13/2025 Encounters Date Type Department Care Team Description 03/09/2025 9:00 AM EST Office Visit [facility] Surgery [address] [place] [phone] Caty Diggs PA-C Aftercare following surgery of the skin or subcutaneous tissue (Primary Dx) 02/16/2025 8:30 AM EDT Office Visit [facility] [address] [place] [address] Caty Diggs PA-C Aftercare following surgery of the skin or subcutaneous tissue (Primary Dx) 02/02/2025 10:00 AM EDT Office Visit [facility] [address] [place] [phone] Riley Jacobo MD Zarba, Nicole A, PA-C Aftercare following surgery of the skin or subcutaneous tissue (Primary Dx); Encounter for removal of sutures 01/26/2025 10:00 AM EDT Office Visit [facility] [address] [place] [phone] Riley Jacobo MD Aftercare following surgery (Primary Dx) 01/25/2025 3:37 PM EDT - 01/25/2025 4:01 PM EDT Emergency [facility] [address] [place] [phone] Phillip Do MD Discharge Disposition: Home or Self Care 01/19/2025 11:30 AM EDT Office Visit [facility] [address] [place] [phone] Caty Diggs PA-C Aftercare following surgery of the skin or subcutaneous tissue (Primary Dx); Encounter for change or removal of drains 01/15/2025 Telephone [facility] [address] [place] [phone] Lola Brink, HOEING ROW BOSS Post-op 01/14/2025 Telephone [facility] [address] [place] [address] Lola Brink, HOEING ROW BOSS Post-op 01/13/2025 10:10 AM EDT Anesthesia Event OR Admitting Dept - Virtual Department [address] [place] [phone] Truman Fields MD Pierce, Trudy Alix L, CRNA 01/13/2025 10:03 AM EDT - 01/13/2025 1:52 PM EDT Surgery OR Admitting Dept - Virtual Department [address] [place] [phone] Riley Jacobo MD REDUCTION BREAST 01/13/2025 7:58 AM EDT - 01/13/2025 4:12 PM EDT Hospital Encounter OR Admitting Dept - Virtual Department [address] [place] [phone] Riley Jacobo MD Discharge Disposition: Home or Self Care 01/13/2025 Procedure Pass OR Admitting Dept - Virtual Department [address] [place] [phone] 01/12/2025 8:00 AM EDT Pre-Admission Testing Pre Procedure Evaluation [address] [place] [phone] Riley Jacobo MD 01/12/2025 Orders Only [facility] [address] [place] [phone] Riley Jacobo MD 01/01/2025 8:30 AM EDT Telemedicine - audio only [facility] [address] [address] Caty Diggs PA-C Breast hypertrophy in female (Primary Dx) from Last 3 Months Family History Medical History Relation Comments Anxiety [...] on file 04/29/2024 No 04/29/2024 No 04/29/2024 Food Answer Date Recorded Within the past 6 months we worried whether our food would run out before we got money to buy more. Never True 01/25/2025 Within the past 6 months the food we bought just didn't last and we didn't have enough money to get more. Never True Residential Stability Answer Date Recor ded What is your housing situation today? I have yovany sing 01/25/2025 How many times have you move d in the past 12 months? Zero (I did not move) 01/25/2025 Paying for Meds Answer Date Recorded Do you have trouble paying for medicines? No 01/25/2025 Paying Utility Bills Answer Date Record ed Do you have trouble paying your heating or elect ricity bill? No 01/25/2025 Transportation Answer Date Recorded Has the lack of transportati on kept you from medical appointments or from getting medications? No 01/25/2025 Digital Access Answer Date Recorded No 01/25/2025 Yes 01/25/2025 Do you have reliable internet access at home? Ye s 01/25/2025 Do you have a device (e.g., phone, tablet, computer) with a working camera? Yes 01/25/2025 Intimate Partner Violence Answer Date R ecorded Are you denied basic needs s uch as food, clothing, or medical care? No 01/25/2025 In the past 12 months have y ou been in a relationship with a person who hurts, threatens, or tries to control you? No 01/25/2025 Are you denied basic needs s uch as food, clothing, or medical care? No 01/25/2025 In the past 12 months have y ou been in a relationship with a person who hurts, threatens, or tries to control you? No 01/25/2025 Comments No Sex and Gender Information Value Date Recorded Sex Assigned at Female 01/25/2025 3:29 PM EDT Legal Sex Female 11:09 AM EST Gender Identity Female 01/25/2025 3:29 PM EDT Sexual Orientation Not on file Last Filed Vital Signs Vital Sign Reading Time Taken Comments Blood Pressure 118/80 01/25/2025 3:28 PM EDT Pulse 74 01/25/2025 3:28 PM EDT Temperature 36.6 C (97.8 F) 01/25/2025 3:28 PM EDT Respiratory Rate 18 01/25/2025 3:28 PM EDT Oxygen Saturation 99% 01/25/2025 3:28 PM EDT Inhaled Oxygen Concentration - - Weight 81.2 kg (179 lb) 01/25/2025 3:28 PM EDT Height 157.5 cm (5' 2 ) 01/25/2025 3:28 PM EDT Body Mass Index 32.74 01/25/2025 3:28 PM EDT Plan of Treatment Upcoming Encounters Date Type Department Care Team (Late st Contact Info) Description 04/13/2025 4:30 PM EST Office Visit [facility] [place] [facility] [address] [place] [address] Caty Diggs PA-C [address] [facility], [address] [place] [address] [email or web address] Health Maintenance Due Date Last Done Comments DEPRESSION SCREENING 2010 HEPATITIS C SCREENING 02/16/2016 HIV ONE-TIME SCREENING (18-6 5 YEARS) 02/16/2016 INFLUENZA VACCINE (#1) 2024 01/21/2021 COVID-19 VACCINE (2024-2 6 season) 2024 09/18/2023, 08/05/2020, 07/15/2020 PAP SMEAR 09/10/2026 09/11/2023 Adult Td,Tdap Booster 09/17/2033 09/18/2023 SMOKING STATUS SCREENING (On ce After 26 Yrs) Completed 01/13/2025 HEPATITIS A VACCINES Aged Out No long [...] (0-49 years) Aged Out No longer eligible b ased on patient's age to complete this topic Medical Devices Not on file Procedures Procedure Name Priority Date/Time Associated Diagnosis Comments AIRWAY PLACEMENT Routine 01/13/2025 10:1 8 AM EDT DE BREAST REDUCTION 01/13/2025 1 0:07 AM EDT Breast hypertrophy URINE HCG STAT 01/13/2025 8:11 AM EDT ANATOMIC PATHOLOGY Routine 01/13/2025 12 :00 AM EDT from Last 3 Months Results * ANES ETT DOUBLE LUMEN - AIRWAY LDA (01/13/2025 10:18 AM EDT) Narrative Truman Fields MD - 01/13/2025 10:18 AM EDT Truman Fields MD 01/13/2025 10:22 AM Airway Placement Procedure Note: Patient was not difficult to intubate. Procedure performed by: fellow/resident/DIRECTOR OF OPERATIONS Anesthesiologist: Truman Fields MD Fellow/Resident/DIRECTOR OF OPERATIONS: Anila Akbar CRNA Airway procedure initiated at:01/13/2025 10:18 AM and ended at 01/13/2025 10:18 AM. Personal Protective Equipment: Mask: surgical mask Eye Protection: eye shield Gloves: gloves Mask Ventilation: Quality: easy Adjunct: jaw thrust and muscle relaxant Airway Placement: Technique: direct laryngoscopy Rapid sequence induction: no Details: Blade type: Fisher Blade size: 2 Direct view: grade 1 Airway manipulation: cricoid pressure Number of attempts: 1 ETT type: cuffed ETT size: 7.0 ETT depth at teeth: 19 ETT cuff inflation volume: 4 Tube position confirmed by: bilateral breath sounds and EtCO2 Outcomes: Evidence of dental injury? no Complications observed? no us Truman Fields MD DE ANESTHESIA Final Result * HCG, urine (01/13/2025 8:11 AM EDT) URINE TEST Negative Negative [facility] Urine (Urine) 01/13/2025 8:1 1 AM EDT 01/13/2025 8:34 AM EDT us Riley Jacobo MD LAB URINE ORDERABLES Final Resul t [address] [address] * Anatomic Pathology (Non-MGB) (01/13/2025 12:00 AM EDT) Report [address] [address] Food Concession Manager: Terrance Inman MD Surgical Pathology Report FINAL PATHOLOGIC DIAGNOSIS: A. LEFT BREAST REDUCTION (976 G): Benign skin and breast tissue. B. RIGHT BREAST REDUCTION (915 G): Benign skin and breast tissue. Electronically Signed Out By Terrance Inman MD By his/her signature above, the pathologist listed as making the Final Diagnosis certifies that he/she has personally reviewed this case and confirmed or corrected the diagnosis. CLINICAL HISTORY Breast hypertrophy SPECIMENS SUBMITTED: A: LEFT BREAST TISSUE B: RIGHT BREAST TISSUE GROSS DESCRIPTION A. LEFT BREAST TISSUE: Received in formalin is a 976 g aggregate of esparza-yellow, lobulated fibrofatty tissue fragments which vary in size from 2.0 x 1.3 x 0.5 cm up to 32.5 x 16.2 x 3.8 cm, several which exhibit overlying, irregular skin fragments. The skin surfaces are smooth, esparza and unremarkable. Sectioning reveals unremarkable, lobulated, esparza-yellow cut surfaces. Parks Recreation Director sections are submitted in cassettes A1-A2. B. RIGHT BREAST TISSUE: Received in formalin is a 915 g aggregate of esparza-yellow, lobulated fibrofatty tissue fragments which vary in size from 8.5 x 4.5 x 1.8 cm up to 28.7 x 14.5 x 4.8 cm, several which exhibit overlying, irregular skin fragments. The skin surfaces are smooth, esparza and unremarkable. Sectioning reveals unremarkable, lobulated, esparza-yellow cut surfaces. Parks Recreation Director sections are submitted in cassettes B1-B2. Grossed by: Dionicio Farah S, PA([facility]) [id number] 01/14/2025 Grossing Staff: [id number] Patient Name: OMAYRA KIMBALL : 2000 (Age: 24) Sex: F [facility]: [facility] Date of Operation: 01/13/2025 Date of Reported: 01/15/2025 15:47 Results To: Riley Jacobo MD, BA Danette Albarran MD [facility] Clinical History Breast hypertrophy [facility] Final Diagnosis A. LEFT BREAST REDUCTION (976 G):Benign skin and breast tissue.B. RIGHT BREAST REDUCTION (915 G):Benign skin and breast tissue. [facility] Gross Description A. LEFT BREAST TISSUE: Received in formalin is a 976 g aggregate of esparza-yellow, lobulated fibrofatty tissue fragments which vary in size from 2.0 x 1.3 x 0.5 cm up to 32.5 x 16.2 x 3.8 cm, several which exhibit overlying, irregular skin fragments. The skin surfaces are smooth, esparza and unremarkable. Sectioning reveals unremarkable, lobulated, esparza-yellow cut surfaces. Parks Recreation Director sections are submitted in cassettes A1-A2.B. RIGHT BREAST TISSUE: Received in formalin is a 915 g aggregate of esparza-yellow, lobulated fibrofatty tissue fragments which vary in size from 8.5 x 4.5 x 1.8 cm up to 28.7 x 14.5 x 4.8 cm, several which exhibit overlying, irregular skin fragments. The skin surfaces are smooth, esparza and unremarkable. Sectioning reveals unremarkable, lobulated, esparza-yellow cut surfaces. Parks Recreation Director sections are submitted in cassettes B1-B2.Grossed by: TOM Lozano, PA(ASCP) [facility] Conversion Type (Breast) 01/13/2025 01/14/2025 9:16 AM EDT Conversion Type (Breast) 01/13/2025 01/14/2025 9:16 AM EDT us Riley Jacobo MD LAB PATHOLOGY ORDERABLES Edited Result - Final [address] [address] from Last [address] [facility] [address] [place] [address] [place] [address] [place] [address] [place] [address] [employer] Advance Directives For more information, please contact: [phone] (9AM - 5PM [facility], Sunday-Sunday) Documents on File Type Date Recorded Patient Parks Recreation Director Expl anation Healthcare Proxy 01/14/2025 11:42 AM * Full Code (Latest Code Status on File) Date Activated Date Inactivated Comments 01/13/2025 8:36 AM Question Answer Comments Code Status Confirmed With: Other (specify below ) Code Discussion Comments: periop Care Teams Mechanical Cad Drafter Relationship Specialty Start Date End Date Danette Albarran MD [address] [place] [phone] PCP - General Family Medicine 04/29/24 Additional Source Comments The information contained in this document represents components of the legal health record. It is not the complete legal health record.[facility]
--- OUTSIDE RECORDS SUMMARY | 2025-04-01 14:16 | XMS_ITS | Encounter Summary ---
Author Organization [employer] Address [address] [place] [address] Care Team Providers Care Roto Rooter Operator Name Role Phone Danette Albarran MD Primary Care Provider [phone] Encounter Details Date Type Department Care Team (Latest Contact Info) Description 04/01/2025 Travel Social History Tobacco Use Types Packs/Day [...] Description 04/29/2025 10:00 AM EST Office Visit [facility] MEDICINE [address] [place] [address] Caty Li FNP [address] [place] [address] documented as of this encounter Visit Diagnoses Not on filedocumented in this encounter Additional Health Concerns Assessment Noted Time PHQ-9 Depression Total Score: 0 04/24/20 24 11:05 AM EST documented as of this encounter Care Teams Roto Rooter Operator Relationship Specialty Start Date End Date Danette Albarran MD [address] [place] [address] PCP - General Family Medicine 02/02/23 documented as of this encounter
--- OUTSIDE RECORDS SUMMARY | 2025-04-01 14:16 | XMS_ITS | Encounter Summary ---
Author Organization [employer] Address [address] [facility] [address] [facility] [address] [place] [address] Care Team Providers Care Desulfurizer Hand Name Role Phone Danette Albarran MD Primary Care Provider [phone] Reason for Visit * Reason Onset Date Comments Nurse Triage 03/31/2025 Encounter Details Date Type Department Care Team ([facility] st Contact Info) Description 03/31/2025 Telephone [facility] [address] [place], [place] [phone] Danette Albarran MD [address] [place], [place] [phone] Nurse Triage Social History Tobacco Use Types Packs/Day Years [...] encounter Miscellaneous Notes * Telephone Encounter - Kianna Carrizales RN - 03/31/2025 1:02 PM EST TC placed to patient [phone] in regards to below message. Patient reports having diarrhea since 03/23/25. Patient reports the episodes occur every time after eating (is not on an antibiotic) andshe also believes she may have an external hemorrhoid. Patient reports she can feel a piece of skin hanging. Patient denies any blood in her stool or toilet paper. Patient reports approx 1- 3 diarrhea episodes per day and at times abd pain. Patient reports maintaining fluid intake and bland diet however no improvement. Patient scheduled for an appt tomorrow 04/01/25 at 10:15am for evaluation of potential external hemorrhoid. Patient agreed to appt date and time. Protocol Used: Diarrhea (Adult) Protocol-Based Disposition: See in Office or Video Visit Today Video visit not offered Positive Triage Questions: * Moderate diarrhea (e.g., 4-6 times / day more than normal) and present > 48 hours (2 days) * Abdominal pain (Exceptions: Pain clears completely with each passage of diarrhea stool, or symptoms similar to previously diagnosed irritable bowel syndrome.) * Mild diarrhea (e.g., 1-3 or more stools than normal in past 24 hours) diarrhea and present > 7days (Exception: Chronic diarrhea that is not worse.) * Patient wants to be seen * Mild-Moderate diarrhea (e.g., 1-6 times / day more than normal) * All higher-acuity triage questions were negative. Care Advice Discussed: * Reassurance and Education - Diarrhea * Fluid Therapy During Mild to Moderate Diarrhea * Food and Nutrition During Mild to Moderate Diarrhea * Diarrhea Medicine - Loperamide (Imodium AD) * Reasons To Call Back - Signs of dehydration occur (such as no urine over 12 hours, very dry mouth, lightheaded, etc.) - Moderate diarrhea lasts more than 2 days - You become worse * Telephone Encounter - Rachael Mane - 03/31/2025 12:12 PM EST Symptoms: Diarrhea, Rectal Symptoms - Not Bleeding, Headache Outcome: Schedule an urgent appointment (within 1 hour) or talk to a nurse or provider soon Reason: Severe pain now tc from pt last triage 03/23 She feels the same Please contact pt at [phone] documented in this encounter Plan of Treatment Upcoming Encounters Date Type Department Care Team (Late st Contact Info) Description 04/29/2025 10:00 AM EST Office Visit [facility] [address] [place] [address] Caty Li, SURGICAL APPLIANCE FITTER [address] [place] [address] documented as of this encounter Visit Diagnoses Not on filedocumented in this encounter Additional Health Concerns Assessment Noted Time PHQ-9 Depression Total Score: 0 04/24/20 11:05 AM EST documented as of this encounter Care Teams Desulfurizer Hand Relationship Specialty Start Date End Date Danette Albarran MD [address] [place] [address] PCP - General Family Medicine 02/02/23 documented as of this encounter
--- OUTSIDE RECORDS SUMMARY | 2025-04-01 14:16 | XMS_ITS | Clinical Summary ---
Author Organization [employer] Address [address] [place] [address] Care Team Providers Care Chief Service Observer Name Role Phone Danette Albarran MD Primary Care Provider [phone] Allergies Active Allergy Reactions Criticality Noted Date Comments Cattle Epithelium 10/23/2024 Dust Mite Extract 10/23/2024 Shellfish Allergy Hives,Itching 09/29/2022 Medications Fiber 500 MG capsule Take 500 mg by mouth 2 times daily. 180 capsule 2 4 Active senna (Senokot) 8.6 MG tablet Take 1 tablet (8.6 mg) by mouth if needed at bedtime for constipation. 90 tablet 1 4 Active hydrocortisone 2.5 % creamIndication s:Allergic reaction, initial encounter Apply topically 2 times daily. 28 g 1 5 Active ibuprofen 600 MG tablet Take 1 tablet (600 mg) by mouth every 6 (six) hours if needed for mild pain or fever. 40 tablet 1 5 Active Drospirenone (Slynd) 4 MG tablet Take 1 tablet by mouth Once per day. 28 tablet 11 5 Active cetirizine (ZyrTEC) 10 MG tablet Take 10 mg by mouth Once per day. Active fluticasone (Flonase) 50 MCG/ACT nasal sprayIndication s:Viral URI with cough Use 1-2 spray each nostril daily. Shake gently. Before first use, prime pump. After use, clean tip and replace cap. 16 g 2 5 Active simethicone (Mylicon) 80 MG chewable tablet Chew 1 tablet (80 mg) every 6 (six) hours if needed for flatulence. 30 tablet 1 04/01/20 26 Active Active Problems Problem Noted Date Diagnosed Date House dust mite allergy 12/25/2024 Assessment & Plan (12/25/2024 6:07 PM EDT): - evaluated by internet security specialist - continue cetirizine Contact dermatitis 12/25/2024 Assessment & Plan (12/25/2024 6:10 PM EDT): - likely acrylic nail product - resolved Macromastia 09/23/2024 Assessment & Plan (12/25/2024 5:57 PM EDT): - Pt is having neck, back, and shoulder pain - Scheduled for breasts reduction on 01/13/[address] Riley Jacobo. Assessment & Plan (09/27/2024 4:20 PM EDT): - Pt is having neck, back, and shoulder pain - Seen by plastic surgeon - Scheduled for breasts reduction on 01/13/25 - Will schedule for pre-op in November Allergic reaction 07/21/2024 Assessment & Plan (12/25/2024 6:05 PM EDT): - seen by [facility] in August 2024 - acute urticaria and contact dermatitis from acrylic nail product. - dust mite allergy - referred to skin patch testing with brine tank operator for further evaluation - continue cetirizine Assessment & Plan (07/21/2024 4:54 PM EDT): I advised to avoid offending agent, to take out the acrylic from her nails I will prescribe hydrocortisone cream 2.5 To apply twice daily no more than 2 weeks I prescribed Benadryl 25 mg every 6 hours if needed I will refer patient to internet security specialist Sweating profusely 04/24/2024 Assessment & Plan (04/24/2024 1:43 PM EST): - Sweats especially after showering or during normal activities like cleaning. - She feels cold quickly after sweating. - She will be tested for thyroid disease Dizziness 04/24/2024 Upper back pain 04/24/2024 Assessment & Plan (12/25/2024 5:57 PM EDT): - anticipate to improve after breast reduction surgery Neck pain 04/24/2024 Assessment & Plan (12/25/2024 5:57 PM EDT): - anticipate to improve after breast reduction surgery Chronic pain of both shoulders 04/24/2024 Assessment & Plan (12/25/2024 5:57 PM EDT): - anticipate to improve after breast reduction surgery Poor posture 04/24/2024 Assessment & Plan (12/25/2024 6:07 PM EDT): - anticipate to improve after the surgery Constipation 09/18/2023 Assessment & Plan (09/18/2023 10:46 [...] Follow-up urine culture and reconsult as needed Gastroenteritis 03/06/2024 12/25/2024 Assessment & Plan (03/06/2024 2:54 PM EST): -likely viral gastroenteritis -no evidence of dehydration on exam -no evidence of acute abdomen -pepto bismol prn -supportive care with fluids -ER precautions discussed Miscarriage 04/26/2023 04/26/202309/2309/23/2024 2019 novel coronavirus detected 04/26/2023 09/18/2023 Assessment & Plan (04/26/2023 11:27 AM EST): Tylenol/Motrin for symptoms Quarantine x 5 days, mask for 5 days after that time Letter given to excuse from work To ER or return to clinic if high fevers, intolerant to PO, develops respiratory symptoms or chest pain Early stage of 11/24/2022 Encounters Date Type Department Care Team Description 04/01/2025 10:15 AM EST Office Visit [facility] [address] [place] [phone] Caty Li FNP Abdominal discomfort (Primary Dx); Diarrhea, unspecified type 04/01/2025 Travel 03/31/2025 Telephone [facility] [address] [place] [phone] Danette Albarran MD Nurse Triage 03/23/2025 Telephone [facility] [address] [place] [phone] Danette Albarran MD Nurse Triage 01/16/2025 Orders Only [facility] [address] [place], [place] [phone] Provider, MD Marlo from Last 3 Months Immunizations Immunization Administration [...] Mass Index 34.02 04/01/2025 10:38 AM EST Plan of Treatment Upcoming Encounters Date Type Department Care Team ([facility] st Contact Info) Description 04/29/2025 10:00 AM EST Office Visit [facility] [address] [place] [address] Caty Li, PAINTER BARREL [address] [place] [address] Health Maintenance Due Date Last Done Comments HPV Vaccines (1 - 3-dose series) 2013 COVID-19 Vaccine (4 - 2024- season) 2024 09/18/2023, 08/05/2020, 07/15/2020 Influenza Vaccine (#1) 2024 01/21/2021 Hepatitis B Vaccines (3 of 3 - 19+ 3-dose series) 03/26/2025 10/23/2024, 09/23/2024 Alcohol/Substance Use Screening 04/24/2025 04/24/2024 Depression Screening 04/24/2025 04/24/2024, 04/24/20 SDOH Screening 09/12/2025 09/12/2024 Disability Screening 09/23/2025 09/23/2024 Lipid Panel 09/24/2025 09/24/2020 Family Planning (PISQ) 12/16/2025 12/16/2024 Tobacco Screening 04/01/2026 04/01/2025 Pap Smear 09/10/2026 09/11/2023, 09/24/2020 DTaP/Tdap/Td Vaccines (2 - Td or Tdap) 09/17/2033 09/18/2023 Zoster Vaccines (1 of 2) 02/16/2048 RSV Patients and Patients Aged 60 years or older (1 - 1-dose 75+ series) 2073 HIV Screening Completed 12/25/2024, 08/30, 07/19/2021, Additional history exists Hepatitis C Screening Completed 12/25/2024 , 09/27/2023, 07/19/2021, Additional history exists HIB Vaccines Aged Out No longer eligi [...] Associated Diagnosis Comments SURGICAL PATHOLOGY Routine 01/13/2025 11 :52 AM EDT HEPATITIS C AB W/REFL TO HCV RNA, QN, PCR Routine 12/25/2024 10:10 AM EDT Routine screening for STI (sexually transmitted infection) HIV 1/2 ANTIGEN/ANTIBODY, FOURTH GENERATION W/RFL Routine 12/25/2024 10:10 AM EDT Routine screening for STI (sexually transmitted infection) PAP SMEAR Routine 09/11/2023 9:55 AM EDT Cervical cancer screening LIPID PANEL, STANDARD Routine 09/24/2020 10:49 AM EDT from Last 3 Months or Most Recently Relevant to Health Maintenance Results * Surgical Pathology (01/13/2025 11:52 AM EDT) us Historical Provider LAB PATHOLOGY ORDERABLES Final Result * Hepatitis C Antibody with Reflex to HCV, RNA, Quantitative, Real-Time PCR (12/25/2024 10:10 AM EDT) Hepatitis C Antibody Nonreactive Nonreactive [facility] Comment:Antibodies to HCV no t detected; does not exclude early acuteHCV infection. Blood Venous blood specimen / Unknown 12/25/2024 10:10 AM EDT 12/25/2024 11:31 AM EDT us Danette Albarran MD LAB BLOOD ORDERABLES Final Resul t [facility] [address] [place] [phone] * HIV-1/2 Antigen and Antibodies, Fourth Generation, with Reflexes (12/25/2024 10:10 AM EDT) HIV AB/AG Nonreactive Nonreactive [facility] Comment:HIV-1 p24 Ag and/or HIV-1/HIV-2 Ab not detected.A test result that is nonreactive does not exclude thepossibility of exposure to or infection with HIV-1 and/orHIV-2. Nonreactive results in this assay for individualswith prior exposure to HIV-1 and/or HIV-2 may be due toantigen and antibody levels that are below the limit ofdetection of this assay.The NetVision HIV Ag/Ab Combo assay result andsupplemental assay results should be interpreted inconjunction with the patient's clinical presentation,history and other laboratory results. If the results areinconsistent with clinical evidence, additional testing issuggested to confirm the result. Blood Venous blood specimen / Unknown 12/25/2024 10:10 AM EDT 12/25/2024 11:31 AM EDT us Danette Albarran MD LAB BLOOD ORDERABLES Final Resul t [facility] [address] [place] [phone] * Pap Smear (09/11/2023 9:55 AM EDT) Swab 09/11/2023 9:55 AM EDT 09/13/2023 10:15 AM EDT Narrative [facility] - 10/01/2023 11:58 AM EDT ----- ------- Name: Omayra Littlejohn Age/Sex: 23/F : 2000 Unit#: [id number] Attend Dr: MANUEL BLANKENSHIP CNM Re09/11/23 Status: DEP REF Location: HO.LNP Disch: ----- ------- SPEC : [id number] RECD: 09/13/23-1015 STATUS: SHAWNA DELGADO NUM: [id number] TINA: 09/11/23-55 [facility] DR: MANUEL BLANKENSHIP CNM ENTERED: 09/13/23-132 SP TYPE: Pap Smr OTHR DR: ORDERED: Pap Smear Interpretation Satisfactory for evaluation. Negative for intraepithelial lesion or malignancy. Clinical Information LMP:UNK Previous PAP test:UNK Material Received ThinPrep-Vaginal/Cervical ----- ------- Signed (signature on file) Tabatha Jaramillo 10/01/23 1158 ----- ------- END OF REPORT us Manuel Woodsalycia CN LAB CYTOLOGY ORDERABLES F inal Result [facility] [address] [place] [phone] * (ABNORMAL) LIPID PANEL, STANDARD (09/24/2020 10:49 AM EDT) Chol/HDLC Ratio 3.3 <5.0 (calc) [facility] Cholesterol, Total 147 <200 mg/dL [facility] HDL Cholesterol 45(L) > OR = 50 mg/dL [facility] LDL Cholesterol 87 mg/dL (calc) [facility] Comment: Reference range: <100 Desirable range <100 mg/dL for primary prevention; <70 mg/dL for patients with CHD or diabetic patients with > or = 2 CHD risk factors. LDL-C is now calculated using the Gustavo calculation, which is a validated novel method providing better accuracy than the Friedewald equation in the estimation of LDL-C. Mario SS et al. JASWANT. 2013;310(19): 8432-8316 (http://education.[employer]FoKo/faq/WCJ918) Non-HDL Cholesterol 102 <130 mg/dL (calc) [facility] Comment: For patients with diabetes plus 1 major ASCVD risk factor, treating to a non-HDL-C goal of <100 mg/dL (LDL-C of <70 mg/dL) is considered a therapeutic option. Triglycerides 63 <150 mg/dL [facility] 09/24/2020 10:4 9 AM EDT us Ashleigh Thomas SENIOR GROUP MANAGER LAB BLOOD ORDERABLES Final Resu lt [facility] [address] from Last 3 Months or Most Recently Relevant to Health Maintenance Insurance [facility] Care Teams Chief Service Observer Relationship Specialty Start Date End Date Danette Albarran MD [address] [place] [phone] PCP - General Family Medicine 02/02/23
[2025-04-01 14:46] LABS: Appearance Urine Clear; Glucose Urine UA Negative (Negative); PH 7.0 (5.0-9.0); Specific Gravity - Urine 1.010 (1.005-1.025)
[2025-04-01 16:30] LABS: Anion Gap 11 (12-20); Blood Urea Nitrogen 17 mg/dL (9-16); Calcium 9.3 mg/dL (8.4-10.2); Carbon Dioxide 25 mmol/L (22-29); Chloride 105 mmol/L (96-108); Estimated Glomerular Filt Rate > 60; Potassium 4.0 mmol/L (3.3-5.1); Sodium 137 mmol/L (135-145)
== END 2025-04-01 11:50 | disposition home or self-care (01) ==
LOC: HO.HHCL 11:49
PROVIDERS: Internal Medicine; PCP Family Medicine; Visit Provider Registered Nurse
DX: N30.01 Acute cystitis with hematuria (principal); R19.7 Diarrhea, unspecified
CPT/HCPCS: 36415; 80048; 81001; 87086

== ENCOUNTER 2025-04-02 13:05 | Outpatient (REF) | payer OTHER, SELFPAY | END 2025-04-02 13:06 | disposition home or self-care (01) | LOC: HO.LNP 13:05 | PROVIDERS: Visit Provider Registered Nurse | DX: R10.9 Unspecified abdominal pain (principal) | CPT/HCPCS: 87338 ==